=== PATIENT | male | born 1965 | race Caucasian/White ===

== ENCOUNTER 2020-06-03 01:49 | Inpatient (IN) | payer MEDICAID, SELFPAY ==
[2020-06-03] VITALS (11 sets, daily range): BP systolic 94–160; BP diastolic 55–97; PULSE 63–85; RESP 16–18; TEMP 36.6–37.2; O2SAT 93–100; BMI 33.9
--- NOTE | 2020-06-03 02:25 | W.ED.MALEGU ---
Documented by User: RAHEEL Farley 06/03/20 02:34 HPI - Male Genitourinary General: Chief complaint: Urogenital-Male Stated complaint: primary sent over if no urination in 12 hours Time Seen by Provider: 06/03/20 02:20 History of Present Illness: HPI Narrative: Patient presents with a history of having some problems urinating over the last 12 hours said he feels like he might need to go but he can go but then again he says he is severely dehydrated because he was seen in clinic in [place] [facility] said they did blood work on him and a KUB and said he was severely just dehydrated and sent him home. Said his sodium potassium was low. Patient has been sick for the last week with nausea and happens had some vomiting he denies any fever or diarrhea. Thinks maybe it just something he ate. Has a history of Parkinson's. Also sounds like he might have longstanding history of BPH that is gone undiagnosed based on his symptoms MD Complaint: other (Has not urinated in 12 hours) Onset (ago): hour(s) Duration: constant and progressively worsening Associated symptoms: Reports nausea and vomiting Review of Systems Narrative: Thinks he might be dehydrated has dizziness but that is chronic with his Parkinson's he states then noticed that he is a more dizzy when he stands up than before Const: Denies: fever(s), chills or body aches Eyes: Denies: change in vision or blurry vision ENMT: Denies: throat pain or nasal congestion Card: Denies: chest pain or dyspnea on exertion Resp: Reports: productive cough; Denies: dyspnea or non-productive cough GI: Reports: nausea and vomiting; Denies: abdominal pain : Reports: difficulty urinating Musc: Denies: extremity pain Skin/Breast: Denies: rash Neuro: Denies: headache(s) Psych: Denies: anxiety or depression Sarmad/Lymph: Denies: easy bruising PFSH ED PFSH: Medical History (Updated 06/03/20 @ 05:04 by Yazmin Bolivar) Heart failure with reduced ejection fraction Parkinsons disease Surgical History (Updated 06/03/20 @ 04:31 by Lynn Ball MD) AICD (automatic cardioverter/defibrillator) present Family History (Updated 06/03/20 @ 04:33 by Lynn Ball MD) Denies family history of Cancer Physical Exam Const: COMMON NORMALS: no acute distress, average body habitus and patient oriented x3 HENMT: COMMON NORMALS: normocephalic HEAD & SCALP: normal to inspection and normocephalic FACE & SINUS: normal facial exam Eye: COMMON NORMALS: conjunctivae normal GENERAL EYE: appearance normal, both eyes and all related structures CONJUNCTIVA: Yes conjunctivae normal Neck/C-Spine: COMMON NORMALS: no JVD Chest: COMMONS NORMALS: normal inspection of the chest Resp: COMMON NORMALS: normal respiratory effort and clear to auscultation bilaterally AUSCULTATION: clear to auscultation bilaterally Cardio: COMMON NORMALS: no JVD, regular rate and regular rhythm RATE: regular rate RHYTHM: regular rhythm GI: COMMON NORMALS: Normal to inspection, nondistended, normoactive bowel sounds present Extremity: COMMON NORMALS: normal to inspection and full ROM Neuro: COMMON NORMALS: patient oriented x3 Course Vital Signs: Vital signs: Vital Signs Temperature 98.3 F 06/03/20 02:05 Pulse Rate 78 06/03/20 04:30 Respiratory Rate 16 06/03/20 04:30 Blood Pressure 149/93 06/03/20 04:30 Pulse Oximetry 99 06/03/20 04:30 MDM - Male Lab Data: Labs: Lab Results 06/03/20 06/03/20 06/03/20 Range/Units 02:39 02:39 02:39 WBC 8.6 (4.0-10.0) 10^3/ uL RBC 5.19 (4.1-5.3) 10^6/u L Hgb 14.9 (11.7-16.6) g/dL Hct 42.5 (42.0-52.0) % MCV 81.9 (80-94) fL MCH 28.7 (28.0-34.0) pg MCHC 35.1 (30.0-36.0) g/dL RDW 13.4 (12.1-15.1) % Plt Count 243 (130-400) 10^3/c mm MPV 11.0 H (7.4-10.4) fL Neut % (Auto) 65.8 % Lymph % (Auto) 20.0 % [place] % (Auto) 12.9 % Eos % (Auto) 0.2 % Baso % (Auto) 0.4 % Neut # (Auto) 5.64 (1.8-7.7) 10^3/u L Lymph # (Auto) 1.7 (0.8-4.8) 10^3/u L [place] # (Auto) 1.1 H (0.2-0.9) 10^3/u L Eos # (Auto) 0.0 (0.0-0.8) 10^3/u L Baso # (Auto) 0.0 (0.0-0.1) 10^3/u L Nucleated RBC % (a uto) 0 % Nucleated RBCs # 0.0 /100WBC Sodium 123 L (136-145) mmol/L Potassium 3.3 L (3.5-5.1) mmol/L Chloride 84 L (98-107) mmol/L Carbon Dioxide 26 (22-29) mmol/L Anion Gap 17.3 (5-19) BUN 15 (6-20) mg/dL Creatinine 1.2 (0.7-1.2) mg/dL GFR Calculation 62.4 L (90-130) mL/min Glucose 139 H (65-115) mg/dL Calculated Osmolal ity 259 L (285-295) mOsm/k g Calcium 9.3 (8.5-10.5) mg/dL Magnesium 1.8 (1.7-2.3) mg/dL Total Bilirubin 0.8 (0.15-1.2) mg/dL AST 9 (0-40) U/L ALT 8 (0-41) U/L Alkaline Phosphata se 101 (40-130) IU/L Total Protein 7.6 (6.6-8.7) g/dL Albumin 4.1 (3.5-5.2) g/dL Globulin 3.4 (1.3-4.6) g/dL Lipase 43 (13-60) U/L Urine Color (Yellow) Urine Appearance (CLEAR) Urine pH (5-7) Ur Specific Gravit y (1.005-1.030) Urine Protein (Negative) Urine Glucose (UA) (Normal) Urine Ketones (Negative) Urine Blood (Negative) Urine Nitrate (Negative) Urine Bilirubin (Negative) Urine Urobilinogen (Negative) mg/dL Ur Leukocyte Joy ase (Negative) Urine RBC (0-2) /hpf Urine WBC (0-5) /hpf Ur Squamous Epith Cells (0-5) /hpf Amorphous Sediment /hpf Urine Bacteria (NONE) /hpf Hyaline Casts /lpf Urine Mucus /hpf 06/03/20 Range/Units 03:15 WBC (4.0-10.0) 10^3/ uL RBC (4.1-5.3) 10^6/u L Hgb (11.7-16.6) g/dL Hct (42.0-52.0) % MCV (80-94) fL MCH (28.0-34.0) pg MCHC (30.0-36.0) g/dL RDW (12.1-15.1) % Plt Count (130-400) 10^3/c mm MPV (7.4-10.4) fL Neut % (Auto) % Lymph % (Auto) % [place] % (Auto) % Eos % (Auto) % Baso % (Auto) % Neut # (Auto) (1.8-7.7) 10^3/u L Lymph # (Auto) (0.8-4.8) 10^3/u L [place] # (Auto) (0.2-0.9) 10^3/u L Eos # (Auto) (0.0-0.8) 10^3/u L Baso # (Auto) (0.0-0.1) 10^3/u L Nucleated RBC % (a uto) % Nucleated RBCs # /100WBC Sodium (136-145) mmol/L Potassium (3.5-5.1) mmol/L Chloride (98-107) mmol/L Carbon Dioxide (22-29) mmol/L Anion Gap (5-19) BUN (6-20) mg/dL Creatinine (0.7-1.2) mg/dL GFR Calculation (90-130) mL/min Glucose (65-115) mg/dL Calculated Osmolal ity (285-295) mOsm/k g Calcium (8.5-10.5) mg/dL Magnesium (1.7-2.3) mg/dL Total Bilirubin (0.15-1.2) mg/dL AST (0-40) U/L ALT (0-41) U/L Alkaline Phosphata se (40-130) IU/L Total Protein (6.6-8.7) g/dL Albumin (3.5-5.2) g/dL Globulin (1.3-4.6) g/dL Lipase (13-60) U/L Urine Color Yellow (Yellow) Urine Appearance Sl cloudy A (CLEAR) Urine pH 6 (5-7) Ur Specific Gravit y 1.015 (1.005-1.030) Urine Protein Trace (Negative) Urine Glucose (UA) Norm (Normal) Urine Ketones 1+ H (Negative) Urine Blood 3+ H (Negative) Urine Nitrate Negative (Negative) Urine Bilirubin 1+ H (Negative) Urine Urobilinogen 4+ H (Negative) mg/dL Ur Leukocyte Joy ase Negative (Negative) Urine RBC 25-40 H (0-2) /hpf Urine WBC 10-15 H (0-5) /hpf Ur Squamous Epith Cells 0-4 H (0-5) /hpf Amorphous Sediment 1+ /hpf Urine Bacteria 1+ H (NONE) /hpf Hyaline Casts 0-4 H /lpf Urine Mucus 4+ /hpf Discharge Plan Discharge Patient Disposition: Placed in Observation Clinical Impression: Dehydration, Hyponatremia, Hypokalemia Condition: Stable Sign Out Sign Out Data: Patient Sign Out occurred on 06/03/20 at 03:14. Patient's care was discussed, and care was transferred from to Yazmin Bolivar. Coding Level of Care Code ED Concrete Paving Machine Operator for g Fwd Exam Comprehensive Documented by User: Yazmin Bolivar 06/03/20 05:04 HPI - Male Genitourinary General: Chief complaint: Urogenital-Male Stated complaint: primary sent over if no urination in 12 hours Time Seen by Provider: 06/03/20 02:20 [facility] ED PFSH: Medical History (Updated 06/03/20 @ 05:04 by Yazmin Bolivar) Heart failure with reduced ejection fraction Parkinsons disease Surgical History (Updated 06/03/20 @ 04:31 by Lynn Ball MD) AICD (automatic cardioverter/defibrillator) present Family History (Updated 06/03/20 @ 04:33 by Lynn Ball MD) Denies family history of Cancer Course Vital Signs: Vital signs: Vital Signs Temperature 98.3 F 06/03/20 02:05 Pulse Rate 78 06/03/20 04:30 Respiratory Rate 16 06/03/20 04:30 Blood Pressure 149/93 06/03/20 04:30 Pulse Oximetry 99 06/03/20 04:30 MDM - Male MDM Narrative: Medical decision making narrative: Patient is hyponatremic, hypokalemic and orthostatic. Supposedly has a cardiomyopathy with a 20% ejection fraction so I believe he should be rehydrated slowly and gently. I do not want to precipitate heart failure or volume overload. The case was endorsed to Dr. Ball and he agrees to admit for further evaluation and care. Lab Data: Labs: Lab Results 06/03/20 06/03/20 06/03/20 Range/Units 02:39 02:39 02:39 WBC 8.6 (4.0-10.0) 10^3/ uL RBC 5.19 (4.1-5.3) 10^6/u L Hgb 14.9 (11.7-16.6) g/dL Hct 42.5 (42.0-52.0) % MCV 81.9 (80-94) fL MCH 28.7 (28.0-34.0) pg MCHC 35.1 (30.0-36.0) g/dL RDW 13.4 (12.1-15.1) % Plt Count 243 (130-400) 10^3/c mm MPV 11.0 H (7.4-10.4) fL Neut % (Auto) 65.8 % Lymph % (Auto) 20.0 % Berrien % (Auto) 12.9 % Eos % (Auto) 0.2 % Baso % (Auto) 0.4 % Neut # (Auto) 5.64 (1.8-7.7) 10^3/u L Lymph # (Auto) 1.7 (0.8-4.8) 10^3/u L [place] # (Auto) 1.1 H (0.2-0.9) 10^3/u L Eos # (Auto) 0.0 (0.0-0.8) 10^3/u L Baso # (Auto) 0.0 (0.0-0.1) 10^3/u L Nucleated RBC % (a uto) 0 % Nucleated RBCs # 0.0 /100WBC Sodium 123 L (136-145) mmol/L Potassium 3.3 L (3.5-5.1) mmol/L Chloride 84 L (98-107) mmol/L Carbon Dioxide 26 (22-29) mmol/L Anion Gap 17.3 (5-19) BUN 15 (6-20) mg/dL Creatinine 1.2 (0.7-1.2) mg/dL GFR Calculation 62.4 L (90-130) mL/min Glucose 139 H (65-115) mg/dL Calculated Osmolal ity 259 L (285-295) mOsm/k g Calcium 9.3 (8.5-10.5) mg/dL Magnesium 1.8 (1.7-2.3) mg/dL Total Bilirubin 0.8 (0.15-1.2) mg/dL AST 9 (0-40) U/L ALT 8 (0-41) U/L Alkaline Phosphata se 101 (40-130) IU/L Total Protein 7.6 (6.6-8.7) g/dL Albumin 4.1 (3.5-5.2) g/dL Globulin 3.4 (1.3-4.6) g/dL Lipase 43 (13-60) U/L Urine Color (Yellow) Urine Appearance (CLEAR) Urine pH (5-7) Ur Specific Gravit y (1.005-1.030) Urine Protein (Negative) Urine Glucose (UA) (Normal) Urine Ketones (Negative) Urine Blood (Negative) Urine Nitrate (Negative) Urine Bilirubin (Negative) Urine Urobilinogen (Negative) mg/dL Ur Leukocyte Joy ase (Negative) Urine RBC (0-2) /hpf Urine WBC (0-5) /hpf Ur Squamous Epith Cells (0-5) /hpf Amorphous Sediment /hpf Urine Bacteria (NONE) /hpf Hyaline Casts /lpf Urine Mucus /hpf //20 Range/Units 03:15 WBC (4.0-10.0) 10^3/ uL RBC (4.1-5.3) 10^6/u L Hgb (11.7-16.6) g/dL Hct (42.0-52.0) % MCV (80-94) fL MCH (28.0-34.0) pg MCHC (30.0-36.0) g/dL RDW (12.1-15.1) % Plt Count (130-400) 10^3/c mm MPV (7.4-10.4) fL Neut % (Auto) % Lymph % (Auto) % [place] % (Auto) % Eos % (Auto) % Baso % (Auto) % Neut # (Auto) (1.8-7.7) 10^3/u L Lymph # (Auto) (0.8-4.8) 10^3/u L [place] # (Auto) (0.2-0.9) 10^3/u L Eos # (Auto) (0.0-0.8) 10^3/u L Baso # (Auto) (0.0-0.1) 10^3/u L Nucleated RBC % (a uto) % Nucleated RBCs # /100WBC Sodium (136-145) mmol/L Potassium (3.5-5.1) mmol/L Chloride (98-107) mmol/L Carbon Dioxide (22-29) mmol/L Anion Gap (5-19) BUN (6-20) mg/dL Creatinine (0.7-1.2) mg/dL GFR Calculation (90-130) mL/min Glucose (65-115) mg/dL Calculated Osmolal ity (285-295) mOsm/k g Calcium (8.5-10.5) mg/dL Magnesium (1.7-2.3) mg/dL Total Bilirubin (0.15-1.2) mg/dL AST (0-40) U/L ALT (0-41) U/L Alkaline Phosphata se (40-130) IU/L Total Protein (6.6-8.7) g/dL Albumin (3.5-5.2) g/dL Globulin (1.3-4.6) g/dL Lipase (13-60) U/L Urine Color Yellow (Yellow) Urine Appearance Sl cloudy A (CLEAR) Urine pH 6 (5-7) Ur Specific Gravit y 1.015 (1.005-1.030) Urine Protein Trace (Negative) Urine Glucose (UA) Norm (Normal) Urine Ketones 1+ H (Negative) Urine Blood 3+ H (Negative) Urine Nitrate Negative (Negative) Urine Bilirubin 1+ H (Negative) Urine Urobilinogen 4+ H (Negative) mg/dL Ur Leukocyte Joy ase Negative (Negative) Urine RBC 25-40 H (0-2) /hpf Urine WBC 10-15 H (0-5) /hpf Ur Squamous Epith Cells 0-4 H (0-5) /hpf Amorphous Sediment 1+ /hpf Urine Bacteria 1+ H (NONE) /hpf Hyaline Casts 0-4 H /lpf Urine Mucus 4+ /hpf Discharge Plan Discharge Patient Disposition: Placed in Observation Clinical Impression: Dehydration, Hyponatremia, Hypokalemia Condition: Stable Sign Out Sign Out Data: Patient Sign Out occurred on 06/03/20 at 03:14. Patient's care was discussed, and care was transferred from to Yazmin Bolivar. Coding Level of Care Code ED Concrete Paving Machine Operator for [place] Fwd Exam Comprehensive
--- NOTE | 2020-06-03 02:27 | XRR_ITS ---
PROCEDURE INFORMATION: Exam: XR Chest, 1 View Exam date and time: 06/03/2020 2:47 AM Age: 55 years old Clinical indication: Cough; Prior surgery; Surgery type: Pacer TECHNIQUE: Imaging protocol: XR of the chest Views: 1 view. COMPARISON: No relevant prior studies available. FINDINGS: Lungs: Unremarkable. No consolidation. Pleural space: Unremarkable. No pleural effusion. No pneumothorax. Heart/Mediastinum: Unremarkable. No cardiomegaly. A left subclavian pacemaker is in place. Bones/joints: Unremarkable. XR/XR chest 1V portable [id number] IMPRESSION: No acute findings.
[2020-06-03 02:49] LABS: Basophils % 0.4 %; Eosinophils % 0.2 %; Hematocrit 42.5 % (42.0-52.0); Hemoglobin 14.9 g/dL (11.7-16.6); Lymphocytes # 1.7 10^3/uL (0.8-4.8); Mean Corpuscular HGB Conc 35.1 g/dL (30.0-36.0); Mean Corpuscular Hemoglobin 28.7 pg (28.0-34.0); Mean Corpuscular Volume 81.9 fL (80-94); Monocytes # 1.1 10^3/uL (0.2-0.9); Monocytes % 12.9 %; Neutrophils # 5.64 10^3/uL (1.8-7.7); Neutrophils % 65.8 %; Nucleated Red Blood Cells % 0 %; Platelet Count 243 10^3/cmm (130-400); Red Blood Count 5.19 10^6/uL (4.1-5.3); Red Cell Distribution Width 13.4 % (12.1-15.1); White Blood Count 8.6 10^3/uL (4.0-10.0)
[2020-06-03] MEDS: sodium chloride 0.9% 1,000 ML 999 ML IV ×2 (03:05→04:43)
[2020-06-03 03:08] LABS: Alanine Aminotransferase 8 U/L (0-41); Aspartate Amino Transferase 9 U/L (0-40); Blood Urea Nitrogen 15 mg/dL (6-20); Calcium 9.3 mg/dL (8.5-10.5); Carbon Dioxide 26 mmol/L (22-29); Glomerular Filtration Rate 62.4 mL/min (90-130); Glucose 139 mg/dL (65-115); Magnesium 1.8 mg/dL (1.7-2.3); Total Bilirubin 0.8 mg/dL (0.15-1.2); Total Protein 7.6 g/dL (6.6-8.7)
[2020-06-03 03:26] LABS: Albumin Level 4.1 g/dL (3.5-5.2); Alkaline Phosphatase 101 IU/L (40-130); Anion Gap 17.3 (5-19); Chloride 84 mmol/L (98-107); Globulin 3.4 g/dL (1.3-4.6); Osmolality Calculated 259 mOsm/kg (285-295); Potassium 3.3 mmol/L (3.5-5.1); Sodium 123 mmol/L (136-145)
[2020-06-03 03:27] LABS: Lipase 43 U/L (13-60)
[2020-06-03 03:31] LABS: Bilirubin Urine 1+ (Negative); Blood Urine 3+ (Negative); Glucose Urine UA Norm (Normal); Ketones Urine 1+ (Negative); Leukocyte Esterase Urine Negative (Negative); Nitrate Urine Negative (Negative); Protein Urine Trace (Negative); Specific Gravity, Urine 1.015 (1.005-1.030); Urine Color Yellow (Yellow); Urobilinogen Urine 4+ mg/dL (Negative); pH Urine 6 (5-7)
[2020-06-03 03:33] LABS: Add Urine Culture? Yes; Amorphous Sediment Urine 1+ /hpf; Bacteria Urine 1+ /hpf; Hyaline Casts Urine 0-4 /lpf; Mucus Urine 4+ /hpf; RBC Urine 25-40 /hpf (0-2); Squamous Epithelial Cell Urine 0-4 /hpf (0-5)
--- NOTE | 2020-06-03 04:30 | PM.HP ---
Providers/Chief Complaint Chief Complaint: primary sent over if no urination in 12 hours History of Present Illness Kin Lujan is a 55 year old male who has past medical history of Parkinson's disease, heart failure reduced action fraction status post AICD/pacemaker placement, diabetes, hypertension dyslipidemia resented today for chief complaint of not making enough urine. Patient is stating that he has been having recurrent emesis for last 1 week, he has not noticed any fever or chest pain but is not able to keep anything down, he feels extremely dehydrated currently he is not on Lasix, it was discontinued due to hypotension, he went to [facility] where he was told that he has dehydration and severe electrolyte imbalance, he was discharged home yesterday with instructions to go to the hospital if he is not making enough urine. Patient is stating that he is not able to make urine at home, he is concerned and that is why he came to the hospital. He has been compliant with his medications. No orthopnea PND shortness of breath chest pain or diarrhea. He lives alone. He is a non-smoker nonalcoholic. Diagnosis in the ER revealed hyponatremia sodium 123 hypokalemia 3.3, clinically looks euvolemic no active signs of heart failure, no signs of UTI denies dysuria urinary frequency rectal pain, he was given ceftriaxone in the ER, received normal saline bolus, chest x-ray unremarkable for acute pathology, urinalysis showed hematuria pyuria however patient is not complaining of any symptoms, Review of Systems Const: Reports: body aches and fatigue; Denies: fever(s) Eyes: Denies: change in vision ENMT: Denies: throat pain Card: Denies: chest pain, swelling of feet/ankles, pre-syncope, dyspnea on exertion or orthopnea Resp: Denies: dyspnea GI: Reports: abdominal pain, nausea, vomiting and constipation : Denies: flank pain Musc: Denies: neck pain Skin/Breast: Denies: rash Neuro: Denies: headache(s) Psych: Denies: anxiety Endo: Denies: polyuria Sarmad/Lymph: Denies: easy bruising All/Imm: Denies: urticaria Medications/Allergies Allergies Allergy/AdvReac Type Severity Reaction Status Date / Time No Known Allergies Allergy Verified 06/03/20 02:13 PFSH Acute PFSH: Medical History (Updated 06/03/20 @ 05:27 by Lynn Ball MD) Abnormal colonoscopy Benign polyp removal Diabetes Dyslipidemia Heart failure with reduced ejection fraction Hypertension Parkinsons disease Surgical History (Updated 06/03/20 @ 04:31 by Lynn Ball MD) AICD (automatic cardioverter/defibrillator) present Family History (Updated 06/03/20 @ 05:28 by Lynn Ball MD) Father CAD (coronary artery disease) Denies family history of Cancer Social History (Updated 06/03/20 @ 05:28 by Lynn Ball MD) Smoking and tobacco status: never smoked Alcohol intake: never Substance/Drug Use: never Lives independently: Yes Housing: House Vitals/I&O/Wt Last Vital Signs Temp 98.3 F 06/03/20 02:05 Pulse 67 06/03/20 04:00 Resp 17 06/03/20 04:00 BP 146/92 06/03/20 04:00 Pulse Ox 100 06/03/20 04:00 06/02/20 06/02/20 06/03/20 14:59 22:59 06:59 Intake Total 1000 / 1000 Balance 1000 / 1000 Weight last 48 hrs Weight 113.398 kg Physical Exam Narrative: EXAM NARRATIVE: Pleasant middle-age male who appears more than stated age Morbidly obese male Currently not in any active distress Saturating well on room air S1, S2 no signs of heart failure or tachyarrhythmia Abdomen soft nontender bowel sounds present Bilateral breath sounds without adventitious rhonchi or crackles No neurological deficit EOMI, PERRLA Awake alert oriented x3 No lower extremity edema gangrene ulcer Appropriate mood and affect General has dark-colored blood-tinged urine Clinically looks euvolemic Data : 06/03/20 02:39 06/03/20 02:39 A&P Assessment and plan (1) Hypokalemia: Status: Acute (2) Hyponatremia: Status: Acute (3) Dehydration: Status: Acute Additional A&P Information Electrolyte imbalance secondary to dehydration due to recurrent emesis Patient is denying diarrhea, fever blood in stool No recent use of antibiotic I am not sure whether it is Parkinson's autonomic dysfunction versus viral gastritis Hydrate gently due to comorbid conditions, Continue IV fluid resuscitation Potassium repleted Check magnesium Check C. 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 [employer] Patient is denying rectal pain or dysuria no signs of UTI I will discontinue ceftriaxone at this point This most likely is traumatic Diaz insertion versus BPH Would repeat urinalysis to make sure hematuria resolves Parkinson's disease continue home regimen carbidopa levodopa 4 times a day, no acute exacerbation DNR/DNI Cardiac diet DVT prophylaxis Lovenox Attestations Medical Necessity Statement*: Anticipating discharge in less than 48 hours continued IV fluid hydration for severe electrolyte imbalance and dehydration secondary to recurrent emesis Time Spent in Patient Care: (>than 50% of time spent in counselling and/or direct pt care on unit). 45mins Coding Level of Care Code Acute Director Of Marketing [employer] Performance [employer]ds for Michelle Meng Diagnoses Hypokalemia E87.6 Hyponatremia E87.1 Dehydration E86.0
[2020-06-03] MEDS: cefTRIAXone 2,000 MG in sodium chloride 0.9% (plus) 50 ML 100 MG IV (04:43)
[2020-06-03] MEDS: sodium chlor 0.9% + KCl 20 mEq 20 MEQ/1,000 ML BAG 30 MEQ IV (06:11)
[2020-06-03] MEDS: enoxaparin 40 mg/0.4 mL Syringe SUBCUT (06:11)
[2020-06-03 07:26] LABS: Glucose Point of Care 128 mg/dL (70-110)
[2020-06-03 07:48] LABS: Magnesium 1.9 mg/dL (1.7-2.3)
[2020-06-03] MEDS: aspirin 81 mg EC Tablet PO (09:11)
[2020-06-03] MEDS: carvedilol 12.5 mg Tablet PO ×2 (09:11→17:46)
[2020-06-03] MEDS: carbidopa-levodopa 25-100mg Tablet 1 EACH PO ×4 (09:11→20:18)
[2020-06-03] MEDS: lisinopril 10 mg Tablet PO ×2 (09:12→17:46)
[2020-06-03] MEDS: ondansetron 2 mg/ML SDV 2 mL 4 MG IVP (09:18)
[2020-06-03 10:53] LABS: Glucose Point of Care 127 mg/dL (70-110)
--- NOTE | 2020-06-03 11:22 | PM.PN ---
Subjective Subjective: Interval history: Patient reports feeling slightly better. He had another episode of vomiting shortly after he ate with undigested food during my evaluation in the bucket. He denies chest pain or shortness of breath. He reports that he usually has bowel movements every 5 to 7 days. His last bowel movement was 3 days ago. He takes rivastigmine pills for the last 2 years and denies any recent medication changes except lisinopril which was recently adjusted. Reports that he is still unable to urinate Vitals/I&O/Wt Last Vital Signs Temp 98.9 F 06/03/20 07:22 Pulse 72 06/03/20 07:22 Resp 18 06/03/20 07:22 BP 143/88 06/03/20 07:22 Pulse Ox 98 06/03/20 07:22 06/02/20 06/03/20 06/03/20 22:59 06:59 14:59 Intake Total 1050 / 1050 120 / 120 Balance 1050 / 1050 120 / 120 Weight last 48 hrs Weight 113.398 kg Physical Exam Const: COMMON NORMALS: no acute distress and patient oriented x3 Resp: COMMON NORMALS: normal respiratory effort and clear to auscultation bilaterally AUSCULTATION: clear to auscultation bilaterally Cardio: COMMON NORMALS: regular rate, regular rhythm and S2 normal heart sound present RATE: regular rate RHYTHM: regular rhythm HEART SOUNDS: S2 normal heart sound present OTHER: No lower extremity edema GI: COMMON NORMALS: Normal to inspection, nondistended, normoactive bowel sounds present, Soft to palpation and non-tender PALPATION: Yes Soft to palpation Neuro: COMMON NORMALS: patient oriented x3 and no focal motor deficits Data : 06/03/20 02:39 06/03/20 02:39 A&P Assessment and plan (1) Hypokalemia: Status: Acute (2) Hyponatremia: Status: Acute (3) Dehydration: With hyponatremia. Status: Acute (4) Benign prostatic hyperplasia with urinary obstruction: Status: Acute (5) UTI (urinary tract infection): Present on admission Status: Acute Additional A&P Information Electrolyte imbalance secondary to dehydration due to recurrent emesis Patient is denying diarrhea, fever blood in stool No recent use of antibiotic I am not sure whether it is Parkinson's autonomic dysfunction versus viral gastritis Hydrate gently due to comorbid conditions, Continue IV fluid resuscitation Potassium repleted Check magnesium Check C. 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 Awaiting urine culture Patient appears dry therefore will start patient on LR at 75 mL an hour Start patient on Flomax and request bladder scan and should there be evidence of urinary retention will consider placing Diaz catheter. Protonix for GI protection. Monitor vitals and adjust blood pressure medication as needed. Attestations Medical Necessity Statement*: Patient with dehydration and UTI requires hospitalization for monitoring and treatment. Coding Level of Care Code Acute Final Finisher Forging Dies for g Fwd Diagnoses Hypokalemia E87.6 Hyponatremia E87.1 Dehydration E86.0 Benign prostatic hyperplasia with urinary obstruction N40.1; N13.8 UTI (urinary tract infection) N39.0
[2020-06-03] MEDS: tamsulosin 0.4 mg Capsule PO (11:31)
[2020-06-03] MEDS: lactated ringers 1,000 ML 75 ML IV (12:03)
[2020-06-03] MEDS: pantoprazole DR 40 mg Tablet PO (12:04)
--- NOTE | 2020-06-03 12:53 | PC.CHAP ---
Pastoral Care Encounter/Spiritual Assessment Type of Contact [] Declined clam digger visit [] Patient/Family/Request visit [] Outpatient visit [] Follow-up visit [] Physician referral [] Code/Alert [X] Routine visit [] Staff referral [] Actively dying [] Patient sleeping [] Family support [] [] Out of room [] Palliative care [] [] Receiving care in room [] Pre-surgical visit [] Trauma [] Long length of stay [] ICU visit [] Other: Relational/Emotional Strength [X] Patient feels connected with others/family/visitors/staff [] Distress [] Loneliness/isolation [] Abandonment Spirituality of Patient [] Person of Katerina [] Attends Faith of their Katerina [] Believes in Prayer [] Reads Bible or Holiness materials [] There are Spiritual issues to be addressed Jewel [employer]yer Interventions [] Prayer [X] Active listening [X] Non-anxious presence [] Spiritual/emotional support [] Crisis/trauma care [] Spiritual counseling [] Bereavement support [] Provided bereavement packet [] Provided Bible/devotional materials [] Provided toy/stuffed animal, coloring book to patient or family member [] Provided Communion [] Anointing/[place] [] Salvation [X] Completed spiritual assessment [] Other: Impact on Illness or Injury [] Angry [] Fearful [] Anxious [] Often cries [] Exhaustion [] Unable to work [] Unable to attend evangelical [] Unable to walk/stand [] Unable to read [] Unable to drive [] Unable to eat/drink [] Unable to sleep [] Unable to be with family [] Patient intubated [] Other: Summary: Pt recent admit due to severe dehydration. He is in discomfort but expresses no needs. Otherwise, in good spirits and connected to family in the area. Time spent with patient: < 5 mins
[2020-06-03 17:01] LABS: Glucose Point of Care 110 mg/dL (70-110)
[2020-06-03 17:45] LABS: Blood Urine 2+ (Negative); Glucose Urine UA Norm (Normal); Ketones Urine Negative (Negative); Protein Urine Neg (Negative); Specific Gravity, Urine 1.005 (1.005-1.030); Urine Appearance Clear (CLEAR); Urine Color Dark Yellow (Yellow); pH Urine 6.5 (5-7)
[2020-06-03 17:46] LABS: Add Urine Culture? Yes; Add Urine Microscopic? YES; Bacteria Urine 1+ /hpf; Bilirubin Urine 1+ (Negative); Leukocyte Esterase Urine 2+ (Negative); Mucus Urine TRACE /hpf; Nitrate Urine Negative (Negative); RBC Urine 0-4 /hpf (0-2); Urobilinogen Urine 4+ mg/dL (Negative)
[2020-06-03] MEDS: atorvastatin 40 mg Tablet 20 MG PO (20:18)
[2020-06-03 21:49] LABS: Glucose Point of Care 106 mg/dL (70-110)
[2020-06-04] VITALS (7 sets, daily range): BP systolic 130–163; BP diastolic 86–100; PULSE 70–102; RESP 17–20; TEMP 36.6–37.4; O2SAT 92–97
[2020-06-04] MEDS: lactated ringers 1,000 ML 75 ML IV ×2 (00:48→13:59)
[2020-06-04] MEDS: cefTRIAXone 2,000 MG in sodium chloride 0.9% (plus) 50 ML 100 MG IV (04:08)
[2020-06-04] MEDS: enoxaparin 40 mg/0.4 mL Syringe SUBCUT (04:55)
[2020-06-04 05:35] LABS: Basophils % 0.4 %; Eosinophils # 0.1 10^3/uL (0.0-0.8); Eosinophils % 1.2 %; Hematocrit 37.5 % (42.0-52.0); Hemoglobin 12.6 g/dL (11.7-16.6); Lymphocytes # 1.2 10^3/uL (0.8-4.8); Lymphocytes % 23.6 %; Mean Corpuscular HGB Conc 33.6 g/dL (30.0-36.0); Mean Corpuscular Hemoglobin 28.8 pg (28.0-34.0); Mean Corpuscular Volume 85.8 fL (80-94); Mean Platelet Volume 11.4 fL (7.4-10.4); Monocytes # 0.4 10^3/uL (0.2-0.9); Monocytes % 7.6 %; Neutrophils # 3.42 10^3/uL (1.8-7.7); Neutrophils % 66.2 %; Nucleated Red Blood Cells % 0 %; Platelet Count 134 10^3/cmm (130-400); Red Blood Count 4.37 10^6/uL (4.1-5.3); Red Cell Distribution Width 13.9 % (12.1-15.1); White Blood Count 5.2 10^3/uL (4.0-10.0)
--- NOTE | 2020-06-04 05:41 | PC.NURSE ---
SHIFT SUMMARY Has rested for intervals. No vomiting. Says has been getting nauseated every time he tries to eat and usually ends up throwing up. Is requesting to try IV Zofran this morning prior to trying to eat breakfast to see if that will help. IV infusing without difficulty at 75ml/hr rate. Urinating well per urinal.
[2020-06-04 06:05] LABS: Anion Gap 13.9 (5-19); Blood Urea Nitrogen 10 mg/dL (6-20); Calcium 8.4 mg/dL (8.5-10.5); Carbon Dioxide 29 mmol/L (22-29); Chloride 90 mmol/L (98-107); Glucose 92 mg/dL (65-115); Osmolality Calculated 269 mOsm/kg (285-295); Sodium 130 mmol/L (136-145)
[2020-06-04 06:17] LABS: Potassium 2.9 mmol/L (3.5-5.1)
[2020-06-04] MEDS: ondansetron 2 mg/ML SDV 2 mL 4 MG IVP ×3 (06:21→20:00)
[2020-06-04 06:50] LABS: Glucose Point of Care 90 mg/dL (70-110)
[2020-06-04] MEDS: pantoprazole DR 40 mg Tablet PO (07:45)
[2020-06-04] MEDS: lisinopril 10 mg Tablet PO ×2 (07:45→17:28)
[2020-06-04] MEDS: carbidopa-levodopa 25-100mg Tablet 1 EACH PO ×4 (07:45→20:00)
[2020-06-04] MEDS: potassium chloride ER 20 mEq Tablet 40 MEQ PO ×2 (07:45→12:10)
[2020-06-04] MEDS: tamsulosin 0.4 mg Capsule PO (07:46)
[2020-06-04] MEDS: carvedilol 12.5 mg Tablet PO ×2 (07:46→17:28)
[2020-06-04] MEDS: aspirin 81 mg EC Tablet PO (07:46)
--- NOTE | 2020-06-04 07:57 | PC.NURSE ---
Patient awake alert and oriented, reports feeling cold, patient has shivers, no fever noted on vitals, room temperature increased, provided additional blanket, discussed plan of care, verbalized understanding.
--- NOTE | 2020-06-04 09:02 | ECG_ITS ---
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 Measurements Intervals [place] Rate: 93 P: 49 LA: 165 QRS: 208 QRSD: 170 T: 18 QT: 411 QTc: 512 Interpretive Statements A SENSE V PACED RHYTHM No previous ECG available for comparison Electronically Signed On 06-05-2020 21:10:50 VARNISH FILTERER by Guerline Pro M.D. [id number] parrish
[2020-06-04 09:46] LABS: Troponin T (5th) Once 15 ng/L (0-15)
--- NOTE | 2020-06-04 09:48 | PC.NURSE ---
Dr. Kovacs notified patient received zofran prior to breakfast, after breakfast patient had X1 emesis, patient requesting something further for nausea, no orders received at this time.
--- NOTE | 2020-06-04 10:19 | PC.NURSE ---
Patient voided 175mL, post residual volume on bladder scan read 45mL. Notified charge nurse and physician. Orders to continue discharge as planned.
[2020-06-04 10:49] LABS: Glucose Point of Care 105 mg/dL (70-110)
--- NOTE | 2020-06-04 12:16 | PC.NURSE ---
Patient reports, I do not feel well at all. patient remains shaky and reports to this nurse it is not his baseline, heart rate is 102, BP 163/95, Dr. Kovacs notified.
--- NOTE | 2020-06-04 14:51 | PC.NURSE ---
Patient has decreased urine output, bladder scanned and 114mL noted on result, Dr. Kovacs notified.
--- NOTE | 2020-06-04 14:56 | P.PN_ITS ---
Subjective Subjective: Interval history: Patient continues to be nauseous and vomited after he ate breakfast and was unable to eat lunch. He denies any shortness of breath or chest pain. He denies any headache, lightheadedness or dizziness whenever he moves his head. Reports he has chronic minimal lightheadedness for many years related to Parkinson's disease but this is unchanged and he has no new complaints. He denies abdominal pain. He reports urinating without difficulty although his urinary output is decreased as he does not have any oral intake. This morning patient wants to go home but understands that he cannot be discharged as he continues to be symptomatic. Vitals/I&O/Wt Last Vital Signs Temp 99.3 F 06/04/20 11:57 Pulse 102 H 06/04/20 11:57 Resp 20 H 06/04/20 11:57 BP 163/95 06/04/20 11:57 Pulse Ox 92 06/04/20 11:57 06/03/20 06/04/20 06/04/20 22:59 06:59 14:59 Intake Total 1206.25 / 1526.25 1075 / 1075 Output Total 1290 / 1290 1000 / 2290 175 / 175 Balance -1290 / -970 206.25 / -763.75 900 / 900 Weight last 48 hrs Weight 113.398 kg Physical Exam Const: COMMON NORMALS: no acute distress and patient oriented x3 Resp: COMMON NORMALS: normal respiratory effort and clear to auscultation bilaterally AUSCULTATION: clear to auscultation bilaterally Cardio: COMMON NORMALS: regular rate, regular rhythm and S2 normal heart sound present RATE: regular rate RHYTHM: regular rhythm HEART SOUNDS: S2 normal heart sound present OTHER: No lower extremity edema GI: COMMON NORMALS: Normal to inspection, nondistended, normoactive bowel sounds present, Soft to palpation and non-tender PALPATION: Yes Soft to palpation Neuro: COMMON NORMALS: patient oriented x3 and no focal motor deficits Data : 06/04/20 04:03 06/04/20 04:03 Micro: Microbiology 06/03/20 03:15 Urine Culture - Preliminary Urine,Clean Catch A&P Assessment and plan (1) Hypokalemia: Status: Acute (2) Hyponatremia: Status: Acute (3) Dehydration: With hyponatremia. Status: Acute (4) Benign prostatic hyperplasia with urinary obstruction: Does not appear to have much of urinary obstruction and reports that his urination improved significantly after initiation of Flomax. Status: Acute (5) UTI (urinary tract infection): Present on admission Status: Acute Additional A&P Information Electrolyte imbalance secondary to dehydration due to recurrent emesis Patient is denying diarrhea, fever blood in stool No recent use of antibiotic I am not sure whether it is Parkinson's autonomic dysfunction versus viral gastritis Hydrate gently due to comorbid conditions, Continue IV fluid resuscitation Potassium repleted Check magnesium Check C. 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 Continue ceftriaxone. Awaiting urine culture EKG shows paced rhythm and troponin was checked this morning which is in normal limits. Patient denies any chest pain or shortness of breath. He clinically is not in heart failure. If patient does not improve we may need to consider upper endoscopy. We will add Ativan to be used as needed for nausea control. Attestations Medical Necessity Statement*: Patient with persistent nausea and vomiting requires close inpatient monitoring and treatment. Since patient stay will cross 2 midnights I will change admission status to inpatient. Coding Level of Care Code Acute Business Continuity Planner for Chg Fwd Diagnoses Hypokalemia E87.6 Hyponatremia E87.1 Dehydration E86.0 Benign prostatic hyperplasia with urinary obstruction N40.1; N13.8 UTI (urinary tract infection) N39.0
[2020-06-04] MEDS: LORazepam 2 mg/mL INJ 1 mL 0.5 MG IVP (15:16)
[2020-06-04 16:49] LABS: Glucose Point of Care 109 mg/dL (70-110)
--- NOTE | 2020-06-04 18:16 | PC.NURSE ---
Patient denies further nausea at this time. awake and resting quietly with lights off.
[2020-06-04] MEDS: atorvastatin 40 mg Tablet 20 MG PO (20:00)
[2020-06-04 20:25] LABS: Glucose Point of Care 110 mg/dL (70-110)
[2020-06-05] VITALS (9 sets, daily range): BP systolic 136–171; BP diastolic 89–108; PULSE 63–78; RESP 18; TEMP 36.6–37; O2SAT 95–98
[2020-06-05] MEDS: carvedilol 12.5 mg Tablet PO ×2 (00:39→18:02)
[2020-06-05] MEDS: lisinopril 10 mg Tablet PO ×2 (00:39→18:02)
[2020-06-05] MEDS: lactated ringers 1,000 ML 100 ML IV (00:42)
[2020-06-05] MEDS: cefTRIAXone 2,000 MG in sodium chloride 0.9% (plus) 50 ML 100 MG IV (03:20)
[2020-06-05] MEDS: enoxaparin 40 mg/0.4 mL Syringe SUBCUT (05:13)
[2020-06-05 05:36] LABS: Basophils % 0.4 %; Eosinophils % 0.5 %; Hematocrit 37.1 % (42.0-52.0); Hemoglobin 12.3 g/dL (11.7-16.6); Lymphocytes # 0.8 10^3/uL (0.8-4.8); Lymphocytes % 15.2 %; Mean Corpuscular HGB Conc 33.2 g/dL (30.0-36.0); Mean Corpuscular Hemoglobin 28.9 pg (28.0-34.0); Mean Corpuscular Volume 87.1 fL (80-94); Mean Platelet Volume 11.3 fL (7.4-10.4); Monocytes # 0.5 10^3/uL (0.2-0.9); Monocytes % 9.4 %; Neutrophils # 4.04 10^3/uL (1.8-7.7); Neutrophils % 73.4 %; Nucleated Red Blood Cells % 0 %; Platelet Count 124 10^3/cmm (130-400); Red Blood Count 4.26 10^6/uL (4.1-5.3); Red Cell Distribution Width 14.1 % (12.1-15.1); White Blood Count 5.5 10^3/uL (4.0-10.0)
[2020-06-05 05:51] LABS: Alanine Aminotransferase 11 U/L (0-41); Alkaline Phosphatase 76 IU/L (40-130); Anion Gap 16.3 (5-19); Aspartate Amino Transferase 47 U/L (0-40); Blood Urea Nitrogen 11 mg/dL (6-20); Calcium 8.3 mg/dL (8.5-10.5); Carbon Dioxide 25 mmol/L (22-29); Chloride 96 mmol/L (98-107); Globulin 2.8 g/dL (1.3-4.6); Glucose 106 mg/dL (65-115); Magnesium 1.9 mg/dL (1.7-2.3); Osmolality Calculated 278 mOsm/kg (285-295); Potassium 3.3 mmol/L (3.5-5.1); Sodium 134 mmol/L (136-145); Total Bilirubin 0.6 mg/dL (0.15-1.2); Total Protein 5.8 g/dL (6.6-8.7)
[2020-06-05 06:41] LABS: Glucose Point of Care 89 mg/dL (70-110)
[2020-06-05] MEDS: ondansetron 2 mg/ML SDV 2 mL 4 MG IVP (07:42)
[2020-06-05] MEDS: tamsulosin 0.4 mg Capsule PO (08:12)
[2020-06-05] MEDS: aspirin 81 mg EC Tablet PO (08:12)
[2020-06-05] MEDS: pantoprazole DR 40 mg Tablet PO (08:12)
[2020-06-05] MEDS: carbidopa-levodopa 25-100mg Tablet 1 EACH PO ×4 (08:12→20:03)
--- NOTE | 2020-06-05 09:42 | PC.CHAP ---
Pastoral Care Encounter/Spiritual Assessment Type of Contact [] Declined tennis director visit [] Patient/Family/Request visit [] Outpatient visit [] Follow-up visit [] Physician referral [] Code/Alert [x] Routine visit [] Staff referral [] Actively dying [] Patient sleeping [] Family support [] [] Out of room [] Palliative care [] [] Receiving care in room [] Pre-surgical visit [] Trauma [] Long length of stay [] ICU visit [] Other: Relational/Emotional Strength [x] Patient feels connected with others/family/visitors/staff [] Distress [] Loneliness/isolation [] Abandonment Spirituality of Patient [] Person of Katerina [] Attends Jehovah'S Witness of their Katerina [] Believes in Prayer [] Reads Bible or Adventist materials [] There are Spiritual issues to be addressed Independent Crop Consultant Interventions [x] Prayer [x] Active listening [] Non-anxious presence [] Spiritual/emotional support [] Crisis/trauma care [] Spiritual counseling [] Bereavement support [] Provided bereavement packet [] Provided Bible/devotional materials [] Provided toy/stuffed animal, coloring book to patient or family member [] Provided Communion [] Anointing/[place] [] Salvation [x] Completed spiritual assessment [] Other: Impact on Illness or Injury [] Angry [] Fearful [] Anxious [] Often cries [] Exhaustion [] Unable to work [] Unable to attend cheondoism [] Unable to walk/stand [] Unable to read [] Unable to drive [] Unable to eat/drink [] Unable to sleep [] Unable to be with family [] Patient intubated [] Other: Summary feeling much better today Time spent with patient 10 min
[2020-06-05 11:25] LABS: Glucose Point of Care 96 mg/dL (70-110)
--- NOTE | 2020-06-05 13:08 | PC.NURSE ---
Patient tolerated clear liquid tray for lunch and no emesis afterwards thus far. Reports feeling better but I am going to take the liquids slowly.
--- NOTE | 2020-06-05 16:07 | CTR_ITS ---
PROCEDURE INFORMATION: Exam: CT Abdomen And Pelvis With Contrast Exam date and time: 06/05/2020 4:34 PM Age: 55 years old Clinical indication: Nausea and vomiting; Prior surgery; Surgery type: Appy; Additional info: Recurrant nausea, vomiting and decrease u/o TECHNIQUE: Imaging protocol: Computed tomography of the abdomen and pelvis with intravenous contrast. Radiation optimization: All CT scans at this facility use at least one of these dose optimization techniques: automated exposure control; mA and/or kV adjustment per patient size (includes targeted exams where dose is matched to clinical indication); or iterative reconstruction. Contrast material: OMNI 300; Contrast volume: 95 ml; Contrast route: INTRAVENOUS (IV); COMPARISON: No relevant prior studies available. RADIATION DOSE METRICS: Total DLP (mGy-cm): 1980.5 FINDINGS: Tubes, catheters and devices: A pacemaker device is present, and its leads are in appropriate position. Lungs: There is calcified granuloma in the left lower lobe. Liver: There is a 1.8 cm sized simple cyst in the right lobe of the liver. There is a diffuse decrease in hepatic parenchymal density, consistent with moderate fatty infiltration. Gallbladder and bile ducts: The gallbladder is normal. Pancreas: The pancreas is normal. Spleen: The spleen is normal. Adrenal glands: There is a 2.6 cm sized indeterminate right adrenal nodule. Comparison with prior examinations is recommended. If no prior exams are available recommend adrenal CT. Kidneys and ureters: There is a simple cyst in the left kidney. There is a left renal collecting system calcification. The right kidney is normal. There is no evidence of hydronephrosis. There is no stone along the course of either ureter. Stomach and bowel: There is no evidence of colitis/diverticulitis. There is no evidence of intestinal obstruction. Appendix: Not identifiedThe prostate gland demonstrates nonspecific parenchymal calcifications. Intraperitoneal space: There is no evidence of free intraperitoneal fluid. Vasculature: Unremarkable. No abdominal aortic aneurysm. Lymph nodes: There are calcified left hilar lymph nodes in keeping with old granulomatous disease. Urinary bladder: Unremarkable as visualized. Reproductive: Unremarkable as visualized. Bones/joints: Unremarkable. No acute fracture. Soft tissues: Unremarkable. CT/CT abdomen pelvis w con* [id number] IMPRESSION: 1. Fatty liver 2. Old granulomatous disease 3. Indeterminate right adrenal mass, further evaluation with adrenal CT scan, or comparison with prior studies is suggested. 4. Left nephrolithiasis 5. No acute finding. COMMENTS: Consistent with the [employer]'s Incidental Findings Committee white paper (J Am Jonah Radiol 2018): Any incidental renal lesion less than 1 cm or classified as too small to characterize, or any incidental cystic renal lesion characterized as simple-appearing, is likely benign. No follow-up imaging is recommended for these lesions per consensus recommendations based on imaging criteria. Radiation Dose CTDIVOL = (mGy): DLP = 1980.5 (mGy-cm)
--- NOTE | 2020-06-05 16:22 | PM.PN ---
Subjective Subjective: Interval history: 55-year-old male with a past medical history significant for Parkinson's disease, chronic systolic heart failure status post AICD / pacemaker placement, hypertension, dyslipidemia, and diabetes mellitus who presented to the hospital with poor p.o. intake. This was associated with decreased urine output. Patient denies any difficulty urination. Denies any prior history of prostate issues. Patient did report decreased appetite and recent nausea and vomiting for past week. Laboratory workup on arrival showed a WBC of 8.6, hemoglobin of 14.9, hematocrit 42.5 and a platelet count of 243. sodium 123, potassium 3.3, chloride 84, bicarb 26, BUN 15 and creatinine of 1.2. Urinalysis showed 2+ leukocyte esterase and 1+ bacteria. Imaging studies on admission included a chest x-ray which did not show any evidence of acute cardiopulmonary abnormality. Upon admission he was started on IVF resuscitation and IV Rocephin 1g q24hr. Diaz catheter was placed. He was noted to have hematuria. Urine culture had not shown any growth. Throughout hospitalization his urine output slowly improved. Did not have any evidence of urinary obstruction. Was started on Flomax. Continued on LR IV at 50 cc/hr. Remained on CLD due to progressive nausea/vomiting. Subjective 06/05/20 Continued to have recurrent nausea/vomiting. Denied any chest pain, dyspnea or abdominal pain. No reported diarrhea or constipation. Medications: Reviewed: Yes Vitals/I&O/Wt Last Vital Signs Temp 98.3 F 06/05/20 11:41 Pulse 74 06/05/20 11:41 Resp 18 06/05/20 11:41 BP 136/92 06/05/20 11:41 Pulse Ox 97 06/05/20 11:41 06/05/20 06/05/20 06/05/20 06:59 14:59 22:59 Intake Total 1030 / 2555 1091.667 / 1091.667 Output Total 420 / 595 390 / 390 Balance 610 / 1960 701.667 / 701.667 Data : 06/05/20 04:16 06/05/20 04:16 Micro: Microbiology 06/03/20 03:15 Urine Culture - Final Urine,Clean Catch A&P Assessment and plan (1) Dehydration: Status: Acute (2) Hyponatremia: Status: Acute (3) Hypokalemia: Status: Acute Intractable nausea/vomiting - Suspected viral gastritis vs possible diabetic or autonomic dysfunction leading to gasteroparesis - Will add Reglan TID meals - Obtain CT abd/pelvis w/contrast - D/C lactated ringer - Start NS at 50 cc/hr - Will arrange for outpatient gastric emptying study once discharged. - Continue CLD - Advance if tolerating and no further emesis Hypokalemia - K 3.3 today - Replace and recheck in am Hypovolemic Hyponatremia - NA 123 on arrival - On IVF - Improved to 134 - Will check FENA - Repeat BMP in AM Urinary tract infection ruled out - D/C Rocephin - Culture results negative - No dysuria, frequency or urgency - Afebile with no leukocytosis Diabetes mellitus - Sliding scale insulin - QACHS checks - A1c in AM Hypertension - Coreg 12.5 mg PO BID - Lisinopril 20 mg PO daily - Add hydralazine PRN Dyslipidemia - Lipitor 20 mg PO Daily Chronic systolic HF s/p hx of AICD placement - No prior echo to assess type - Not currently in exacerbation - Will order ECHO to assess EF - Daily weight - Strict input and output Parkinson disease - Sinemet 25/100mg PO QID Suspected BPH - Flomax 0.4 mg PO daily GI ppx - Protonix 40mg PO daily DVT ppx - Lovenox 40 mg SQ daily Attestations Medical Necessity Statement*: Will require further hospitalization for management of intractable nausea vomiting. Time Spent in Patient Care: Greater than 35 minutes (>than 50% of time spent in counselling and/or direct pt care on unit). Coding Level of Care Code Acute Precision Structural Metal Fitter for g Fwd Diagnoses Dehydration E86.0 Hyponatremia E87.1 Hypokalemia E87.6
--- NOTE | 2020-06-05 16:26 | PC.NURSE ---
Dr. Ro notified of patients elevated BP result, 171/108, verbalized will place new orders PRN for hypertension.
[2020-06-05] MEDS: potassium chloride oral liq 20 mEq/15 mL UDC 40 MEQ PO (16:39)
[2020-06-05] MEDS: hyDRALAzine 25 mg Tablet PO (16:39)
[2020-06-05] MEDS: sodium chloride 0.9% 1,000 ML 50 ML IV (16:39)
[2020-06-05] MEDS: iohexol 300 mg/mL 100 mL Btl IV (16:54)
[2020-06-05 17:19] LABS: Glucose Point of Care 86 mg/dL (70-110)
[2020-06-05] MEDS: atorvastatin 40 mg Tablet 20 MG PO (20:03)
[2020-06-05 20:20] LABS: Glucose Point of Care 98 mg/dL (70-110)
[2020-06-06] VITALS: BP 152/100; PULSE 74; RESP 18; TEMP 36.9; O2SAT 97
[2020-06-06 04:00] VITALS: BP 166/110; PULSE 66; RESP 16; TEMP 37; O2SAT 97
[2020-06-06] MEDS: enoxaparin 40 mg/0.4 mL Syringe SUBCUT (04:38)
[2020-06-06] MEDS: carvedilol 12.5 mg Tablet PO (04:53)
[2020-06-06] MEDS: lisinopril 10 mg Tablet PO (04:54)
[2020-06-06 05:43] LABS: Basophils % 0.3 %; Eosinophils # 0.1 10^3/uL (0.0-0.8); Eosinophils % 1.7 %; Hematocrit 36.6 % (42.0-52.0); Hemoglobin 12.3 g/dL (11.7-16.6); Lymphocytes % 15.6 %; Mean Corpuscular HGB Conc 33.6 g/dL (30.0-36.0); Mean Corpuscular Hemoglobin 28.6 pg (28.0-34.0); Mean Corpuscular Volume 85.1 fL (80-94); Mean Platelet Volume 11.4 fL (7.4-10.4); Monocytes # 0.6 10^3/uL (0.2-0.9); Monocytes % 10.1 %; Neutrophils # 4.54 10^3/uL (1.8-7.7); Neutrophils % 71.8 %; Nucleated Red Blood Cells % 0 %; Platelet Count 143 10^3/cmm (130-400); Red Cell Distribution Width 13.9 % (12.1-15.1); White Blood Count 6.3 10^3/uL (4.0-10.0)
[2020-06-06 06:03] LABS: Alanine Aminotransferase 13 U/L (0-41); Albumin Level 3.1 g/dL (3.5-5.2); Alkaline Phosphatase 82 IU/L (40-130); Anion Gap 11.4 (5-19); Aspartate Amino Transferase 33 U/L (0-40); Blood Urea Nitrogen 8 mg/dL (6-20); Calcium 8.3 mg/dL (8.5-10.5); Carbon Dioxide 27 mmol/L (22-29); Chloride 95 mmol/L (98-107); Globulin 2.7 g/dL (1.3-4.6); Glucose 105 mg/dL (65-115); Magnesium 1.9 mg/dL (1.7-2.3); Osmolality Calculated 269 mOsm/kg (285-295); Potassium 3.4 mmol/L (3.5-5.1); Sodium 130 mmol/L (136-145); Total Bilirubin 0.4 mg/dL (0.15-1.2); Total Protein 5.8 g/dL (6.6-8.7)
[2020-06-06 06:45] LABS: Glucose Point of Care 105 mg/dL (70-110)
--- NOTE | 2020-06-06 07:37 | PC.NURSE ---
Dr. Ro notified of elevated blood pressure, no nausea or vomiting since yesterday morning and patient requesting diet advancement, new orders received for regular diet and hold PRN medication for HTN and assess BP after morning medication. 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
[2020-06-06 07:40] VITALS: BP 168/111; PULSE 66; RESP 18; TEMP 36.4; O2SAT 96
--- NOTE | 2020-06-06 07:40 | PC.NURSE ---
I reported the high bp to the nurse. 168/111
[2020-06-06] MEDS: pantoprazole DR 40 mg Tablet PO (08:11)
[2020-06-06] MEDS: tamsulosin 0.4 mg Capsule PO (08:11)
[2020-06-06] MEDS: aspirin 81 mg EC Tablet PO (08:11)
[2020-06-06] MEDS: potassium chloride ER 20 mEq Tablet PO (08:12)
[2020-06-06] MEDS: carbidopa-levodopa 25-100mg Tablet 1 EACH PO (08:12)
--- NOTE | 2020-06-06 09:10 | PC.NURSE ---
Patient tolerated regular tray for breakfast without nausea or vomiting.
[2020-06-06 10:25] VITALS: BP 148/95
--- NOTE | 2020-06-06 10:36 | PC.NURSE ---
Discharge instructions provided, verbalized understanding, denies further questions or concerns, belongings returned to patient including cell phone clothes shoes and wallet.
[2020-06-06 10:37] VITALS: BP 148/95; PULSE 66; RESP 16; TEMP 36.4; O2SAT 96
--- NOTE | 2020-06-06 12:45 | PM.DCS ---
Discharge Providers Date of Admission: 06/04/20 15:02 Date of Discharge: June 06, 2020 Attending Provider at Admission: Lynn Ball MD Attending Provider at Discharge: Steevn Ro Diagnoses at Discharge Discharge Diagnosis (1) Dehydration: Status: Resolved (2) Hyponatremia: Status: Acute (3) Hypokalemia: Status: Acute Reason for Visit Reason for Visit: primary sent over if no urination in 12 hours Hospital Course Hospital Course 55-year-old male with a past medical history significant for Parkinson's disease, chronic systolic heart failure status post AICD / pacemaker placement, hypertension, dyslipidemia, and diabetes mellitus who presented to the hospital with poor p.o. intake. This was associated with decreased urine output. Patient denies any difficulty urination. Denies any prior history of prostate issues. Patient did report decreased appetite and recent nausea and vomiting for past week. Laboratory workup on arrival showed a WBC of 8.6, hemoglobin of 14.9, hematocrit 42.5 and a platelet count of 243. sodium 123, potassium 3.3, chloride 84, bicarb 26, BUN 15 and creatinine of 1.2. Urinalysis showed 2+ leukocyte esterase and 1+ bacteria. Imaging studies on admission included a chest x-ray which did not show any evidence of acute cardiopulmonary abnormality. Upon admission he was started on IVF resuscitation and IV Rocephin 1g q24hr. Diaz catheter was placed. He was noted to have hematuria. Urine culture had not shown any growth. Throughout hospitalization his urine output slowly improved. Did not have any evidence of urinary obstruction. Was started on Flomax. Continued on LR IV at 50 cc/hr. Remained on CLD due to progressive nausea/vomiting. CT abdomen pelvis was performed which did not show any evidence of acute intra-abdominal findings to suggest etiology of presenting symptoms. Patient's diet was advanced. Urine output had improved. No further nausea vomiting. Diaz catheter was removed and patient passed voiding trials. Was continued on Flomax the time of discharge. Advised to follow-up with Urology on outpatient basis. Discharge in stable condition. Physical Exam Narrative: EXAM NARRATIVE: General -alert awake and oriented x3 HEENT -grossly unremarkable CVS -normal sinus rhythm Chest -nonlabored respiration Abdomen - nondistended nontender Extremities-no significant edema noted Discharge Data Data Completed and Pending: Completed Studies During Hospitalization Category Date Time Status CT abdomen pelvis w con* [id number] Rout ine Cat Scan 06/05/20 16:07 Completed XR chest 1V levi ble [id number] Stat Exams 06/03/20 02:27 Completed Vitals: Last Vital Signs Temp 97.6 F 06/06/20 10:37 Pulse 66 06/06/20 10:37 Resp 16 06/06/20 10:37 BP 148/95 06/06/20 10:37 Pulse Ox 96 06/06/20 10:37 Discharge Plan Discharge Patient Disposition: Home Condition: Stable Prescriptions: New aspirin 81 mg Tablet,Delayed Release (Dr/Ec) 81 mg PO DAILY Qty: 30 RF: 0 tamsulosin 0.4 mg Capsule 0.4 mg PO DAILY Qty: 30 RF: 0 Zofran 4 mg tablet 4 mg PO Q8H PRN (Reason: nausea and vomiting) Qty: 10 RF: 0 pantoprazole 40 mg Tablet,Delayed Release (Dr/Ec) 40 mg PO DAILY Qty: 30 RF: 0 Continued fluoxetine 40 mg capsule 40 mg PO DAILY@0800 RF: 0 lisinopril 20 mg tablet 10 mg PO BID@0800,1999 RF: 0 carbidopa-levodopa 25-100 mg tablet See Rx Instructions .ROUTE .COMPLEX RF: 0 rivastigmine tartrate 1.5 mg capsule 1.5 mg PO BID@0800,1999 RF: 0 carvedilol 12.5 mg tablet 12.5 mg PO BID@0800,1999 RF: 0 glipizide 5 mg tablet 5 mg PO DAILY@0800 RF: 0 rosuvastatin 20 mg tablet 20 mg PO DAILY@0800 RF: 0 Discontinued hydrochlorothiazide 12.5 mg capsule 12.5 mg PO DAILY@0800 RF: 0 Discharge Orders: Discharge Order (Routine); Ordered 06/06/20 Ordered By: Steven Ro Other Ambulatory Orders: Complete Blood Count w/Auto (Routine) Timeframe: 3 Days Location: Determined by Patient Ordered By: Christiano Kovacs Comprehensive Metabolic Panel (Routine) Timeframe: 3 Days Facility: [facility] - Location: Lab - Main Lab Ordered By: Christiano Kovacs Referrals: KAITY SIMMS MD [Referring] - 06/07/20 2:00 pm Discharge Diet: Usual diet Discharge Activity: Increase activity as tolerated Patient Instructions: Dehydration - Adult, Aspirin (By mouth), Ondansetron (By mouth), Tamsulosin (By mouth), Cefdinir (By mouth), Pantoprazole (By mouth), Benign Prostatic Hypertrophy (DC), Urinary Tract Infection in Men (DC) Activity Restrictions/Additional Instructions: Please call your doctor or present to emergency department if your condition worsens or you develop diarrhea, lightheadedness, fatigue, chest pain or see blood in your stool or black stool. Please present back to ER if you have any difficulty with urination or develop fever and chills or your nausea continues and you have difficulty eating and drinking. Discharge Attestations Time Spent in Discharge Care*: greater than 30 min Specific Discharge Activities: educating patient, discussing with pcp/other providers, discussing with briefcase sewer/social workers/dc planners and documenting/other paperwork Status at Discharge: Cognitive status at discharge: cognitively intact, Behavioral status at discharge: cooperative, Functional status at discharge: independent ambulation Overall status at discharge: patient is back to baseline Quality Metrics Clinical Quality Measures During this hospital stay, did patient experience: None Coding Level of Care Code Acute Circulation Clerk for Chg Fwd Diagnoses Dehydration E86.0 Hyponatremia E87.1 Hypokalemia E87.6
== END 2020-06-06 10:58 | disposition home or self-care (01) | DRG 392 ==
LOC: ER 05:04 → MEDSURG 05:06
PROVIDERS: Internal Medicine; Nurse Practitioner Family; Admitting Provider Internal Medicine; Emergency Provider Emergency Medicine; Visit Provider Hospitalist
DX: R11.2 Nausea with vomiting, unspecified (principal); I50.22 Chronic systolic (congestive) heart failure; E87.1 Hypo-osmolality and hyponatremia; E86.0 Dehydration; G20 Parkinson's disease; Z95.810 Presence of automatic (implantable) cardiac defibrillator; E11.9 Type 2 diabetes mellitus without complications; I11.0 Hypertensive heart disease with heart failure; E78.5 Hyperlipidemia, unspecified; R31.9 Hematuria, unspecified; E87.6 Hypokalemia; N40.0 Benign prostatic hyperplasia without lower urinary tract symptoms; Z66 Do not resuscitate; Z79.84 Long term (current) use of oral hypoglycemic drugs
CPT/HCPCS: 12345; 36415; 36416; 51798; 71045; 74177; 80048; 80053; 81001; 82962; 83690; 83735; 84484; 85025; 87086; 93005; 96372; 96375; 99283; G0378; J0696; J1650; J2060; J2405; J7030; Q9967

== ENCOUNTER 2020-06-25 09:57 | Inpatient (IN) | payer MEDICAID, SELFPAY ==
[2020-06-25] VITALS (14 sets, daily range): BP systolic 97–151; BP diastolic 50–99; PULSE 68–98; RESP 16–18; TEMP 36.5–36.9; O2SAT 92–98; BMI 31.4
--- NOTE | 2020-06-25 10:23 | W.ED.NAVMDI ---
HPI - Nausea/Vomiting/Diarrhea General: Chief complaint: Nausea/Vomiting/Diarrhea Stated complaint: Dehydrated/unable to eat or drink Time Seen by Provider: 06/25/20 10:09 History of Present Illness: HPI Narrative: Patient is a 55-year-old male comes to the ED with nausea/vomitting and weakness. Patient has a past medical history of HF with pacemaker, hypertension, dyslipidemia and diabetes. He was seen here and hospitalized back on June 03 for same complaint and decreased urine output. Patient says when he was discharged from the hospital he was actually not feeling much better but lied and wanted to go home. He said he still has a poor appetite and he has nausea and vomiting daily since he was discharged. He did have some diarrhea a couple days ago and it lasted for approximately 2 days and then it has since resolved. He is feeling increased generalized weakness over the past couple days and he gets tired quickly when standing up. Denies any fever, chills, chest pain, shortness of breath, abdominal pain, constipation, dysuria or hematuria. Associated nausea: Yes Associated symtoms: Reports nausea; Denies change in vision, chest pain, dysuria, fatigue, headache(s) or palpitations Review of Systems Const: Denies: fever(s), chills or fatigue Eyes: Denies: change in vision or eye discomfort ENMT: Denies: throat pain, odynophagia, nasal discharge or nasal congestion Card: Denies: chest pain, palpitations, edema, swelling of feet/ankles, dyspnea on exertion or orthopnea Resp: Denies: dyspnea, productive cough or non-productive cough GI: Reports: nausea and vomiting; Denies: abdominal pain, diarrhea, constipation or hematochezia : Denies: flank pain, difficulty urinating, dysuria or hematuria Musc: Denies: neck pain, back pain or extremity swelling Skin/Breast: Denies: rash or new lesions Neuro: Denies: headache(s), numbness in extremities or weakness in extremities PFS ED PFSH: Medical History Abnormal colonoscopy Benign polyp removal Diabetes Dyslipidemia Heart failure with reduced ejection fraction Hypertension Parkinsons disease Surgical History AICD (automatic cardioverter/defibrillator) present Family History Father CAD (coronary artery disease) Denies family history of Cancer Social History Smoking and tobacco status: never smoked Alcohol intake: never Lives independently: Yes Housing: House Physical Exam Const: COMMON NORMALS: no acute distress, patient oriented x3 and alert GENERAL APPEARANCE: cooperative and comfortable HENMT: COMMON NORMALS: normocephalic HEAD & SCALP: normocephalic MOUTH: Normal oral and palatal mucosa present and moist mucous membranes abnormal (mild) THROAT: posterior oropharynx normal and uvula midline Eye: COMMON NORMALS: Equal, round and reactive pupils present PUPIL: Yes Equal, round and reactive pupils present Neck/C-Spine: COMMON NORMALS: supple GENERAL: Yes normal visual inspection Resp: COMMON NORMALS: normal respiratory effort, No retractions, No use of accessory muscles and clear to auscultation bilaterally AUSCULTATION: clear to auscultation bilaterally Cardio: COMMON NORMALS: regular rate, regular rhythm, S1 normal heart sound present, S2 normal heart sound present, No gallops present (Cardio), No clicks present (Cardio), No murmurs present (Cardio) and Peripheral pulses 2+ throughout RATE: regular rate RHYTHM: regular rhythm HEART SOUNDS: S1 normal heart sound present and S2 normal heart sound present PERIPHERAL PULSES: Peripheral pulses 2+ throughout GI: COMMON NORMALS: Normal to inspection, nondistended, normoactive bowel sounds present, Soft to palpation, non-tender and no masses PALPATION: Yes Soft to palpation : COMMON NORMALS: Yes no CVA tenderness BLADDER/KIDNEY EXAM: Yes no CVA tenderness Back/Pelvis: COMMON NORMALS: no CVA tenderness Extremity: COMMON NORMALS: normal to inspection and no pedal edema Neuro: COMMON NORMALS: patient oriented x3 and moves all extremities SENSORIUM/ORIENTATION: Yes alert Skin: GENERAL SKIN EXAM: dry skin and turgor decreased Course Vital Signs: Vital signs: Vital Signs Temperature 98.7 F 06/27/20 08:00 Pulse Rate 67 06/27/20 08:00 Respiratory Rate 16 06/27/20 08:00 Blood Pressure 168/89 06/27/20 08:00 Pulse Oximetry 94 06/27/20 08:00 MDM - Nausea/Vomiting/Diarrhea MDM Narrative: Medical decision making narrative: Patient is a 55-year-old male comes to the ED with nausea, vomiting and weakness. PMH of heart failure with pacemaker, diabetes and hypertension. On exam patient's oral mucosa is very dry. Patient has a creatinine of 1.7 today. His previous creatinine approximately 3 weeks ago was 0.9. CT of abdomen pelvis showed no acute findings. While here in the ED patient was given a liter of IV fluids and some Zofran and Reglan and nausea vomiting was unable to be controlled. I talked to Dr. Johnson here in the ED and discussed possible admission of patient. Dr. Johnson contacted the hospitalist and had patient admitted. Lab Data: Attestation: I reviewed the patient's lab results. Labs: Lab Results 06/25/20 06/25/20 06/25/20 Range/Units 10:39 10:39 10:39 WBC 10.6 H (4.0-10.0) 10^3/ uL RBC 4.90 (4.1-5.3) 10^6/u L Hgb 13.8 (11.7-16.6) g/dL Hct 41.0 L (42.0-52.0) % MCV 83.7 (80-94) fL MCH 28.2 (28.0-34.0) pg MCHC 33.7 (30.0-36.0) g/dL RDW 15.5 H (12.1-15.1) % Plt Count 300 (130-400) 10^3/c mm MPV 11.9 H (7.4-10.4) fL Neut % (Auto) 73.5 % Lymph % (Auto) 15.2 % Mccormick % (Auto) 9.8 % Eos % (Auto) 0.2 % Baso % (Auto) 0.4 % Neut # (Auto) 7.79 H (1.8-7.7) 10^3/u L Lymph # (Auto) 1.6 (0.8-4.8) 10^3/u L Mccormick # (Auto) 1.0 H (0.2-0.9) 10^3/u L Eos # (Auto) 0.0 (0.0-0.8) 10^3/u L Baso # (Auto) 0.0 (0.0-0.1) 10^3/u L Nucleated RBC % (a uto) 0.2 % Nucleated RBCs # 0.0 /100WBC Sodium 133 L (136-145) mmol/L Potassium 3.8 (3.5-5.1) mmol/L Chloride 94 L (98-107) mmol/L Carbon Dioxide 23 (22-29) mmol/L Anion Gap 19.8 H (5-19) BUN 13 (6-20) mg/dL Creatinine 1.7 H (0.7-1.2) mg/dL GFR Calculation 41.8 L (90-130) mL/min Glucose 142 H (65-115) mg/dL Estimat Average Gl ucose Hemoglobin A1c (4.0-6.0) % Calculated Osmolal ity 279 L (285-295) mOsm/k g Calcium 9.2 (8.5-10.5) mg/dL Total Bilirubin 0.9 (0.15-1.2) mg/dL AST 11 (0-40) U/L ALT < 5 (0-41) U/L Alkaline Phosphata se 102 (40-130) IU/L Troponin T Baselin e 21 H (0-15) ng/L Troponin T 120 Min minto (0-15) ng/L Delta Troponin T (0-10) ABS# Troponin T Hi Sens 6Hr (0-15) ng/L Troponin T Hi Sens 6Hr Delta (0-12) ng/L NT-Pro-B Natriuret Pep 357 H (0-125) pg/mL Total Protein 7.1 (6.6-8.7) g/dL Albumin 3.9 (3.5-5.2) g/dL Globulin 3.2 (1.3-4.6) g/dL Lipase 40 (13-60) U/L TSH (0.27-4.20) uIU/ mL Urine Color (Yellow) Urine Appearance (CLEAR) Urine pH (5-7) Ur Specific Gravit y (1.005-1.030) Urine Protein (Negative) Urine Glucose (UA) (Normal) Urine Ketones (Negative) Urine Blood (Negative) Urine Nitrate (Negative) Urine Bilirubin (Negative) Urine Urobilinogen (Negative) mg/dL Ur Leukocyte Joy ase (Negative) Urine RBC (0-2) /hpf Urine WBC (0-5) /hpf Ur Squamous Epith Cells (0-5) /hpf Ur Transition Epit h Cell /hpf Amorphous Sediment Urine Bacteria (NONE) /hpf Hyaline Casts /lpf Urine Mucus /hpf Urine Opiates Scre en (Negative) ng/mL Ur Barbiturates Sc reen (Negative) ng/mL Ur Phencyclidine S crn (Negative) ng/mL Ur Amphetamines Sc reen (Negative) ng/mL U Benzodiazepines Scrn (Negative) ng/mL Urine Cocaine Scre en (Negative) ng/mL U Marijuana (THC) Screen (Negative) ng/mL 06/25/20 06/25/20 06/25/20 Range/Units 10:39 10:39 13:30 WBC (4.0-10.0) 10^3/ uL RBC (4.1-5.3) 10^6/u L Hgb (11.7-16.6) g/dL Hct (42.0-52.0) % MCV (80-94) fL MCH (28.0-34.0) pg MCHC (30.0-36.0) g/dL RDW (12.1-15.1) % Plt Count (130-400) 10^3/c mm MPV (7.4-10.4) fL Neut % (Auto) % Lymph % (Auto) % Mccormick % (Auto) % Eos % (Auto) % Baso % (Auto) % Neut # (Auto) (1.8-7.7) 10^3/u L Lymph # (Auto) (0.8-4.8) 10^3/u L Mccormick # (Auto) (0.2-0.9) 10^3/u L Eos # (Auto) (0.0-0.8) 10^3/u L Baso # (Auto) (0.0-0.1) 10^3/u L Nucleated RBC % (a uto) % Nucleated RBCs # /100WBC Sodium (136-145) mmol/L Potassium (3.5-5.1) mmol/L Chloride (98-107) mmol/L Carbon Dioxide (22-29) mmol/L Anion Gap (5-19) BUN (6-20) mg/dL Creatinine (0.7-1.2) mg/dL GFR Calculation (90-130) mL/min Glucose (65-115) mg/dL Estimat Average Gl ucose 128 Hemoglobin A1c 6.1 H (4.0-6.0) % Calculated Osmolal ity (285-295) mOsm/k g Calcium (8.5-10.5) mg/dL Total Bilirubin (0.15-1.2) mg/dL AST (0-40) U/L ALT (0-41) U/L Alkaline Phosphata se (40-130) IU/L Troponin T Baselin e (0-15) ng/L Troponin T 120 Min minto 19.52 H (0-15) ng/L Delta Troponin T -1.48 L (0-10) ABS# Troponin T Hi Sens 6Hr (0-15) ng/L Troponin T Hi Sens 6Hr Delta (0-12) ng/L NT-Pro-B Natriuret Pep (0-125) pg/mL Total Protein (6.6-8.7) g/dL Albumin (3.5-5.2) g/dL Globulin (1.3-4.6) g/dL Lipase (13-60) U/L TSH 4.01 (0.27-4.20) uIU/ mL Urine Color (Yellow) Urine Appearance (CLEAR) Urine pH (5-7) Ur Specific Gravit y (1.005-1.030) Urine Protein (Negative) Urine Glucose (UA) (Normal) Urine Ketones (Negative) Urine Blood (Negative) Urine Nitrate (Negative) Urine Bilirubin (Negative) Urine Urobilinogen (Negative) mg/dL Ur Leukocyte Joy ase (Negative) Urine RBC (0-2) /hpf Urine WBC (0-5) /hpf Ur Squamous Epith Cells (0-5) /hpf Ur Transition Epit h Cell /hpf Amorphous Sediment Urine Bacteria (NONE) /hpf Hyaline Casts /lpf Urine Mucus /hpf Urine Opiates Scre en (Negative) ng/mL Ur Barbiturates Sc reen (Negative) ng/mL Ur Phencyclidine S crn (Negative) ng/mL Ur Amphetamines Sc reen (Negative) ng/mL U Benzodiazepines Scrn (Negative) ng/mL Urine Cocaine Scre en (Negative) ng/mL U Marijuana (THC) Screen (Negative) ng/mL 06/25/20 06/25/20 06/25/20 Range/Units 15:41 15:41 16:42 WBC (4.0-10.0) 10^3/ uL RBC (4.1-5.3) 10^6/u L Hgb (11.7-16.6) g/dL Hct (42.0-52.0) % MCV (80-94) fL MCH (28.0-34.0) pg MCHC (30.0-36.0) g/dL RDW (12.1-15.1) % Plt Count (130-400) 10^3/c mm MPV (7.4-10.4) fL Neut % (Auto) % Lymph % (Auto) % Mccormick % (Auto) % Eos % (Auto) % Baso % (Auto) % Neut # (Auto) (1.8-7.7) 10^3/u L Lymph # (Auto) (0.8-4.8) 10^3/u L Mccormick # (Auto) (0.2-0.9) 10^3/u L Eos # (Auto) (0.0-0.8) 10^3/u L Baso # (Auto) (0.0-0.1) 10^3/u L Nucleated RBC % (a uto) % Nucleated RBCs # /100WBC Sodium (136-145) mmol/L Potassium (3.5-5.1) mmol/L Chloride (98-107) mmol/L Carbon Dioxide (22-29) mmol/L Anion Gap (5-19) BUN (6-20) mg/dL Creatinine (0.7-1.2) mg/dL GFR Calculation (90-130) mL/min Glucose (65-115) mg/dL Estimat Average Gl ucose Hemoglobin A1c (4.0-6.0) % Calculated Osmolal ity (285-295) mOsm/k g Calcium (8.5-10.5) mg/dL Total Bilirubin (0.15-1.2) mg/dL AST (0-40) U/L ALT (0-41) U/L Alkaline Phosphata se (40-130) IU/L Troponin T Baselin e (0-15) ng/L Troponin T 120 Min minto (0-15) ng/L Delta Troponin T (0-10) ABS# Troponin T Hi Sens 6Hr 32.06 H (0-15) ng/L Troponin T Hi Sens 6Hr Delta 11.06 (0-12) ng/L NT-Pro-B Natriuret Pep (0-125) pg/mL Total Protein (6.6-8.7) g/dL Albumin (3.5-5.2) g/dL Globulin (1.3-4.6) g/dL Lipase (13-60) U/L TSH (0.27-4.20) uIU/ mL Urine Color Dark yellow (Yellow) Urine Appearance Clear (CLEAR) Urine pH 5 (5-7) Ur Specific Gravit y 1.020 (1.005-1.030) Urine Protein 1+ H (Negative) Urine Glucose (UA) Norm (Normal) Urine Ketones 1+ H (Negative) Urine Blood 2+ H (Negative) Urine Nitrate Negative (Negative) Urine Bilirubin 1+ H (Negative) Urine Urobilinogen Norm (Negative) mg/dL Ur Leukocyte Joy ase Negative (Negative) Urine RBC 0-4 H (0-2) /hpf Urine WBC 5-10 H (0-5) /hpf Ur Squamous Epith Cells None (0-5) /hpf Ur Transition Epit h Cell Rare /hpf Amorphous Sediment Not Reportable Urine Bacteria 1+ H (NONE) /hpf Hyaline Casts 0-4 H /lpf Urine Mucus 1+ /hpf Urine Opiates Scre en Negative (Negative) ng/mL Ur Barbiturates Sc reen Negative (Negative) ng/mL Ur Phencyclidine S crn Negative (Negative) ng/mL Ur Amphetamines Sc reen Negative (Negative) ng/mL U Benzodiazepines Scrn Positive H (Negative) ng/mL Urine Cocaine Scre en Negative (Negative) ng/mL U Marijuana (THC) Screen Negative (Negative) ng/mL Imaging Data^: CXR: Attestation: I personally reviewed and interpreted this imaging study as follows: Radiologist's impression: [address] [place] [address] XRay Report Signed Patient: Kin Lujan Unit #: [id number] : 1965 Age/Sex: 55 / M ADM Date: 06/25/20 Loc: ER Room/Bed: Attending Dr: Ordering Provider/Ordering MD: Derrick Paulson Date of Service: 06/25/20 Procedure(s): XR chest 1V portable [id number] Accession Number(s): [id number] Report Number: [id number] PROCEDURE INFORMATION: Exam: XR Chest, 1 View Exam date and time: 06/25/2020 10:45 AM Age: 55 years old Clinical indication: Cough and dyspnea; Prior surgery; Additional info: Weakness TECHNIQUE: Imaging protocol: XR of the chest Views: 1 view. COMPARISON: CR XR chest 1V portable [id number] 06/03/2020 2:37 AM FINDINGS: Tubes, catheters and devices: AICD. Lungs: Hypoinflation, without significant airspace disease. Pleural space: No pleural effusion. Heart/Mediastinum: No cardiomegaly. Bones/joints: Unremarkable. When correlating with the previous study, no significant interval changes are present. XR/XR chest 1V portable [id number] IMPRESSION: Hypoinflation, without significant airspace or pleural disease. Dictated By: Daniel Villalpando MD Signed By: Daniel Villalpando MD Signed Date/Time: 06/25/20 1153 DD/ 1152 CT Abd/Pel: Attestation: I personally reviewed and interpreted this imaging study as follows: Radiologist's impression: [address] [address] [address] Scan Report Signed Patient: Kin Lujan Unit #: [id number] : 1965 Age/Sex: 55 / M ADM Date: 06/25/20 Loc: ER Room/Bed: Attending Dr: Ordering Provider/Ordering MD: Drerick Paulson Date of Service: 06/25/20 Procedure(s): CT abdomen pelvis wo con [id number] Accession Number(s): [id number] Report Number: [id number] PROCEDURE INFORMATION: Exam: CT Abdomen And Pelvis Without Contrast Exam date and time: 06/25/2020 12:05 PM Age: 55 years old Clinical indication: Nausea and vomiting; Additional info: N/v TECHNIQUE: Imaging protocol: Computed tomography of the abdomen and pelvis without contrast. Radiation optimization: All CT scans at this facility use at least one of these dose optimization techniques: automated exposure control; mA and/or kV adjustment per patient size (includes targeted exams where dose is matched to clinical indication); or iterative reconstruction. COMPARISON: CT abdomen pelvis w con* [id number] 06/05/2020 4:45 PM RADIATION DOSE METRICS: Total DLP (mGy-cm): 1742.41 FINDINGS: Detailed evaluation of the abdominal and pelvic viscera is somewhat limited in the absence of intravenous contrast. Inferior thorax: AICD with beam hardening artifact. Interstitial prominence and chronic granulomatous disease. Asymmetric elevation of the right hemidiaphragm and subsegmental atelectasis. Liver: 1.5 cm hepatic dome cyst. Fatty infiltration of the liver and hepatic granuloma. Gallbladder and bile ducts: Cholelithiasis. Pancreas: No pancreatic mass or ductal dilatation. Spleen: No splenomegaly. Adrenal glands: Stable 2.2 cm hypodense right adrenal nodular lesion. Kidneys and ureters: Nonobstructing 6 mm left renal calculus. Stable 8 mm nodular hypodense lesion in the posterior left kidney. Stomach and bowel: Questionable wall thickening in the nondistended stomach. No significant small bowel dilatation. Prominent stool. Diverticula, without pericolonic inflammation. Appendix: No acute appendicitis. Intraperitoneal space: No free fluid. Vasculature: Normal caliber of the abdominal aorta. Lymph nodes: Subcentimeter lymph nodes. Urinary bladder: Nondistended bladder with mild wall thickening. Reproductive: Prostate calcification. Bones/joints: Degenerative change . Soft tissues: Small umbilical hernia. CT/CT abdomen pelvis con [id number] IMPRESSION: 1. Cholelithiasis. 2. Nonobstructing 6 mm left renal calculus. 3. Additional findings as described above. Radiation Dose CTDIVOL = (mGy): DLP = 1742.41 (mGy-cm) Dictated By: Daniel Villalpando MD Signed By: Daniel Villalpando MD Signed Date/Time: 06/25/20 1234 DD/ 1233 EKG Data^: EKG 1: Attestation: I personally reviewed and interpreted this EKG as follows: EKG interpretation date: 06/25/20 Interpretation: Electronic ventricular pacemaker, [address] segment elevation or depression seen. Discharge Plan Discharge Patient Disposition: Admitted As Inpatient Admit Provider: Christal Masterson Clinical Impression: Intractable nausea and vomiting, Abnormal weight loss Condition: Stable Coding Level of Care Code ED Hat Binder for Chg Fwd Exam Comprehensive
--- NOTE | 2020-06-25 10:43 | XRR_ITS ---
PROCEDURE INFORMATION: Exam: XR Chest, 1 View Exam date and time: 06/25/2020 10:45 AM Age: 55 years old Clinical indication: Cough and dyspnea; Prior surgery; Additional info: Weakness TECHNIQUE: Imaging protocol: XR of the chest Views: 1 view. COMPARISON: CR XR chest 1V portable [id number] 06/03/2020 2:37 AM FINDINGS: Tubes, catheters and devices: AICD. Lungs: Hypoinflation, without significant airspace disease. Pleural space: No pleural effusion. Heart/Mediastinum: No cardiomegaly. Bones/joints: Unremarkable. When correlating with the previous study, no significant interval changes are present. XR/XR chest 1V portable [id number] IMPRESSION: Hypoinflation, without significant airspace or pleural disease.
--- NOTE | 2020-06-25 10:44 | ECG_ITS ---
[facility] Test Date: 2020-06-25 Pat Name: Kin Lujan Department: Room: Gender: Male Pot Maker: : 1965 Requested By: Derrick Paulson Order Number: [id number] Agustin MD: Guerline Pro M.D. Measurements Intervals [place] Rate: 88 P: 17 IA: 157 QRS: 233 QRSD: 157 T: 35 QT: 443 QTc: 537 Interpretive Statements A sensed V paced rhythm compared to ECG 06/04/2020 09:31:17 No significant changes Electronically Signed On 06-26-2020 17:26:19 CANDY STARCH MOLD PRINTER by Guerline Pro M.D. [id number]
[2020-06-25] MEDS: sodium chloride 0.9% 500 ML 999 ML IV ×2 (10:48→15:46)
[2020-06-25] MEDS: ondansetron 2 mg/ML SDV 2 mL 4 MG IVP (10:48)
[2020-06-25 11:00] LABS: Basophils % 0.4 %; Eosinophils % 0.2 %; Hemoglobin 13.8 g/dL (11.7-16.6); Lymphocytes # 1.6 10^3/uL (0.8-4.8); Lymphocytes % 15.2 %; Mean Corpuscular HGB Conc 33.7 g/dL (30.0-36.0); Mean Corpuscular Hemoglobin 28.2 pg (28.0-34.0); Mean Corpuscular Volume 83.7 fL (80-94); Mean Platelet Volume 11.9 fL (7.4-10.4); Monocytes % 9.8 %; Neutrophils # 7.79 10^3/uL (1.8-7.7); Neutrophils % 73.5 %; Nucleated Red Blood Cells % 0.2 %; Platelet Count 300 10^3/cmm (130-400); Red Cell Distribution Width 15.5 % (12.1-15.1); White Blood Count 10.6 10^3/uL (4.0-10.0)
[2020-06-25 11:24] LABS: Troponin(5th) Baseline 21 ng/L (0-15)
[2020-06-25 11:27] LABS: Alanine Aminotransferase < 5 U/L (0-41); Albumin Level 3.9 g/dL (3.5-5.2); Alkaline Phosphatase 102 IU/L (40-130); Aspartate Amino Transferase 11 U/L (0-40); Blood Urea Nitrogen 13 mg/dL (6-20); Calcium 9.2 mg/dL (8.5-10.5); Carbon Dioxide 23 mmol/L (22-29); Chloride 94 mmol/L (98-107); Creatinine Clr Calc Pharmacy 60.1161; Globulin 3.2 g/dL (1.3-4.6); Glomerular Filtration Rate 41.8 mL/min (90-130); Glucose 142 mg/dL (65-115); Lipase 40 U/L (13-60); NT Pro B Type Natriuretic Pept 357 pg/mL (0-125); Osmolality Calculated 279 mOsm/kg (285-295); Sodium 133 mmol/L (136-145); Total Bilirubin 0.9 mg/dL (0.15-1.2); Total Protein 7.1 g/dL (6.6-8.7)
[2020-06-25 11:37] LABS: Anion Gap 19.8 (5-19); Potassium 3.8 mmol/L (3.5-5.1)
--- NOTE | 2020-06-25 12:02 | CTR_ITS ---
PROCEDURE INFORMATION: Exam: CT Abdomen And Pelvis Without Contrast Exam date and time: 06/25/2020 12:05 PM Age: 55 years old Clinical indication: Nausea and vomiting; Additional info: N/v TECHNIQUE: Imaging protocol: Computed tomography of the abdomen and pelvis without contrast. Radiation optimization: All CT scans at this facility use at least one of these dose optimization techniques: automated exposure control; mA and/or kV adjustment per patient size (includes targeted exams where dose is matched to clinical indication); or iterative reconstruction. COMPARISON: CT abdomen pelvis w con* [id number] 06/05/2020 4:45 PM RADIATION DOSE METRICS: Total DLP (mGy-cm): 1742.41 FINDINGS: Detailed evaluation of the abdominal and pelvic viscera is somewhat limited in the absence of intravenous contrast. Inferior thorax: AICD with beam hardening artifact. Interstitial prominence and chronic granulomatous disease. Asymmetric elevation of the right hemidiaphragm and subsegmental atelectasis. Liver: 1.5 cm hepatic dome cyst. Fatty infiltration of the liver and hepatic granuloma. Gallbladder and bile ducts: Cholelithiasis. Pancreas: No pancreatic mass or ductal dilatation. Spleen: No splenomegaly. Adrenal glands: Stable 2.2 cm hypodense right adrenal nodular lesion. Kidneys and ureters: Nonobstructing 6 mm left renal calculus. Stable 8 mm nodular hypodense lesion in the posterior left kidney. Stomach and bowel: Questionable wall thickening in the nondistended stomach. No significant small bowel dilatation. Prominent stool. Diverticula, without pericolonic inflammation. Appendix: No acute appendicitis. Intraperitoneal space: No free fluid. Vasculature: Normal caliber of the abdominal aorta. Lymph nodes: Subcentimeter lymph nodes. Urinary bladder: Nondistended bladder with mild wall thickening. Reproductive: Prostate calcification. Bones/joints: Degenerative change . Soft tissues: Small umbilical hernia. CT/CT abdomen pelvis wo con [id number] IMPRESSION: 1. Cholelithiasis. 2. Nonobstructing 6 mm left renal calculus. 3. Additional findings as described above. Radiation Dose CTDIVOL = (mGy): DLP = 1742.41 (mGy-cm)
[2020-06-25] MEDS: metoclopramide 5 mg/mL SDV 2 mL 10 MG IVP ×2 (12:14→15:34)
--- NOTE | 2020-06-25 12:44 | ECG_ITS ---
[facility] Test Date: 2020-06-25 Pat Name: Kin Lujan Department: Room: Gender: Male Scrub Technician: : 1965 Requested By: Derrick Paulson Order Number: [id number] Agustin MD: Guerline Pro M.D. Measurements Intervals [place] Rate: 76 P: 16 WV: 148 QRS: 234 QRSD: 157 T: 31 QT: 475 QTc: 534 Interpretive Statements ELECTRONIC VENTRICULAR PACEMAKER ABNORMAL RHYTHM ECG Compared to ECG 06/25/2020 11:05:02 No significant changes Electronically Signed On 06-26-2020 17:32:21 COLLECTIONS ANALYST by Guerline Pro M.D. [id number]
[2020-06-25 14:45] LABS: Troponin 5 2HR 19.52 ng/L (0-15)
[2020-06-25 14:48] LABS: Troponin 5 2HR Delta -1.48 ABS# (0-10)
[2020-06-25] MEDS: famotidine 20 mg/2 mL INJ IVP ×2 (15:34→20:45)
[2020-06-25 16:05] LABS: Glucose Urine UA Norm (Normal); Ketones Urine 1+ (Negative); Protein Urine 1+ (Negative); Urine Appearance Clear (CLEAR); Urine Color Dark Yellow (Yellow); pH Urine 5 (5-7)
[2020-06-25 16:06] LABS: Add Urine Culture? No; Bacteria Urine 1+ /hpf; Bilirubin Urine 1+ (Negative); Blood Urine 2+ (Negative); Hyaline Casts Urine 0-4 /lpf; Leukocyte Esterase Urine Negative (Negative); Mucus Urine 1+ /hpf; Nitrate Urine Negative (Negative); RBC Urine 0-4 /hpf (0-2); Transitional Epi Cells Urine RARE /hpf; Urobilinogen Urine Norm (Negative)
--- NOTE | 2020-06-25 16:44 | ECG_ITS ---
[facility] Test Date: 2020-06-25 Pat Name: Kin Lujan Department: Room: Gender: Male Bottom Brusher: : 1965 Requested By: Derrick Paulson Order Number: [id number] Agustin MD: Guerline Pro M.D. Measurements Intervals [place] Rate: 80 P: 21 NV: 149 QRS: 232 QRSD: 161 T: 35 QT: 459 QTc: 530 Interpretive Statements A sensed V paced rhythm Compared to ECG 06/25/2020 13:59:40 No significant changes Electronically Signed On 06-26-2020 17:32:17 MANAGER BIOLOGICS by Guerline Pro M.D. [id number]
[2020-06-25 17:10] LABS: Troponin 5 6HR 32.06 ng/L (0-15); Troponin 5 6HR Delta 11.06 ng/L (0-12)
--- NOTE | 2020-06-25 18:02 | P.HP_ITS ---
Providers/Chief Complaint Admitting Physician: Christal Masterson MD Chief Complaint: Dehydarted/unable to eat or drink History of Present Illness Kin Lujan is a 55 year old male who has past medical history of Parkinson's disease, heart failure reduced action fraction status post AICD/pacemaker placement, diabetes, hypertension dyslipidemia who presents to the ER with intractable nausea and vomiting. He was discharged with similar complaints on June 06, 2020. He reports he stopped taking antiemetics. He reports his last BM was 2 days ago. Normally goes every 4 to 5 days. He does have history of diabetes. He has abnormal UA. Unclear when his last EGD was. He is noted to have some hematuria and nephrolithiasis nonobstructive on scan. He denies abdominal pain headaches or change in vision. Denies any recent close contacts with diarrhea or abdominal pain. In the ER patient had labs completed as well as a CT of his abdomen. A urine drug screen is pending. Review of Systems General: Reports: 10 or more systems reviewed and unremarkable except in HPI and below Const: Denies: fever(s) or chills Eyes: Denies: change in vision or blurry vision ENMT: Denies: throat pain Card: Denies: chest pain or palpitations Resp: Denies: dyspnea or productive cough GI: Reports: nausea, vomiting and constipation; Denies: abdominal pain : Denies: flank pain or difficulty urinating Musc: Reports: back pain; Denies: neck pain Skin/Breast: Denies: rash or pruritus Neuro: Reports: difficulty walking; Denies: headache(s) or vertigo Psych: Denies: anxiety or depression Medications/Allergies Home Medications Medication Instructions Recorded Confirmed Last Taken Type carbidopa-levodopa See Rx Instructions .ROUTE .COMPLEX 06/03/20 06/25/20 06/25/20 History carvedilol 12.5 mg PO BID@080006/03/20 06/25/20 06/24/20 History fluoxetine 40 mg PO DAILY@0800 06/03/20 06/25/20 06/24/20 History glipizide 5 mg PO DAILY@0800 06/03/20 06/25/20 06/24/20 History lisinopril 20 mg PO BID@080006/03/20 06/25/20 06/24/20 History rivastigmine tartrate 3 mg PO BID@0800,199906/03/20 06/25/20 06/24/20 History rosuvastatin 20 mg PO DAILY@0800 06/03/20 06/25/20 06/24/20 History ondansetron HCl [Zofran] 4 mg PO Q8H PRN #10 tab 06/04/20 06/25/20 06/24/20 Rx aspirin 81 mg PO DAILY@0800 06/25/20 06/25/20 06/24/20 History pantoprazole 40 mg PO DAILY@0800 06/25/20 06/25/20 06/25/20 History tamsulosin 0.4 mg PO DAILY@0806/25/20 06/25/20 06/24/20 History Allergies Allergy/AdvReac Type Severity Reaction Status Date / Time No Known Allergies Allergy Verified 06/03/20 02:13 PFSH Acute PFSH: Medical History Abnormal colonoscopy Benign polyp removal Diabetes Dyslipidemia Heart failure with reduced ejection fraction Hypertension Parkinsons disease Surgical History AICD (automatic cardioverter/defibrillator) present Family History Father CAD (coronary artery disease) Denies family history of Cancer Social History Smoking and tobacco status: never smoked Alcohol intake: never Lives independently: Yes Housing: House Vitals/I&O/Wt Last Vital Signs Temp 97.7 F 06/25/20 10:13 Pulse 68 06/25/20 17:00 Resp 18 06/25/20 17:00 BP 118/50 06/25/20 17:00 Pulse Ox 94 06/25/20 17:00 Weight last 48 hrs Weight 232 lb Physical Exam Const: COMMON NORMALS: patient oriented x3 and alert GENERAL APPEARANCE: cooperative Resp: COMMON NORMALS: normal respiratory effort and No use of accessory muscles EFFORT & INSPECTION: Yes able to speak in complete sentences Cardio: COMMON NORMALS: regular rate GI: COMMON NORMALS: Normal to inspection, nondistended, normoactive bowel sounds present and Soft to palpation OTHER: decrease bowel sounds Neuro: SENSORIUM/ORIENTATION: Yes alert, Yes oriented to person and Yes oriented to place Data : 06/25/20 10:39 06/25/20 10:39 A&P Assessment and plan (1) Intractable nausea and vomiting: Unclear etiology could be secondary to constipation last BM 2 days ago. Normally goes every 4 to 5 days. He is on multiple medications which can induce nausea and vomiting. He is also noted to have abnormal UA. It would be worthwhile for him to be evaluated by urology and GI for cystoscopy and EGD at some point. We will scan his head, check a TSH, check a random cortisol, continue antiemetics and IV fluids colace Status: Acute (2) Abnormal weight loss: Likely secondary to poor p.o. intake Status: Acute (3) UTI (urinary tract infection): Will order Rocephin, hematuria noted he has nephrolithiasis follow-up cultures discontinue if negative Status: Acute (4) Benign prostatic hyperplasia with urinary obstruction: continue home medications Status: Acute (5) Diabetes: fsbs ssi Status: Acute (6) Heart failure with reduced ejection fraction: resume home meds Status: Acute (7) Constipation: add colace Status: Acute Attestations Medical Necessity Statement*: Kin Lujan's hospital stay will require greater than 2 midnights for Coding Level of Care Code Acute Superintendent Police for [facility] Fwd Diagnoses Intractable nausea and vomiting R11.2 Abnormal weight loss R63.4 UTI (urinary tract infection) N39.0 Benign prostatic hyperplasia with urinary obstruction N40.1; N13.8 Diabetes E11.9 Heart failure with reduced ejection fraction I50.20 Constipation K59.00
[2020-06-25 18:17] LABS: Amphetamines Screen Urine Negative (Negative); Barbiturates Screen Urine Negative (Negative); Benzodiazepines Screen Urine Positive (Negative); Cocaine Screen Urine Negative (Negative); Opiate Screen Urine Negative (Negative); PCP Screen Urine Negative (Negative); THC Screen Urine Negative (Negative)
--- NOTE | 2020-06-25 18:18 | CTR_ITS ---
PROCEDURE INFORMATION: Exam: CT Head Without Contrast Exam date and time: 06/25/2020 7:48 PM Age: 55 years old Clinical indication: Other: Nausea; Additional info: Intractable nausea TECHNIQUE: Imaging protocol: Computed tomography of the head without contrast. Radiation optimization: All CT scans at this facility use at least one of these dose optimization techniques: automated exposure control; mA and/or kV adjustment per patient size (includes targeted exams where dose is matched to clinical indication); or iterative reconstruction. ADDITIONAL STUDY INFORMATION: Total DLP (mGy-cm): 884.43 COMPARISON: No relevant prior studies available. FINDINGS: Examination is limited by artifacts from patient motion. Evaluation of the brain demonstrates no convincing areas of abnormal density when allowing for artifacts from patient motion. There is mild cerebral cortical atrophy. Ventricles do not appear significantly dilated. No definite depressed calvarial fracture is demonstrated. Visualized paranasal sinuses and mastoid air cells demonstrate no significant opacification. CT/CT head wo con* [id number] IMPRESSION: No definite acute intracranial process is demonstrated when allowing for artifacts from patient motion. Radiation Dose CTDIVOL = (mGy): DLP = 884.43 (mGy-cm)
[2020-06-25 18:50] LABS: Thyroid Stimulating Hormone 4.01 uIU/mL (0.27-4.20)
[2020-06-25 18:57] LABS: Estmated Average Glucose 128; Hemoglobin A1C 6.1 % (4.0-6.0)
[2020-06-25 20:36] LABS: Glucose Point of Care 106 mg/dL (70-110)
[2020-06-25] MEDS: carbidopa-levodopa 25-100mg Tablet 1.5 EACH PO (20:45)
[2020-06-25] MEDS: sucralfate 1 gm Tablet PO (20:46)
[2020-06-25] MEDS: carvedilol 12.5 mg Tablet PO (20:47)
[2020-06-25] MEDS: sodium chloride 0.9% 1,000 ML 75 ML IV (20:48)
[2020-06-25] MEDS: cefTRIAXone 2,000 MG in sodium chloride 0.9% (plus) 50 ML 100 MG IV (20:50)
[2020-06-26] VITALS (7 sets, daily range): BP systolic 143–180; BP diastolic 90–105; PULSE 66–79; RESP 18; TEMP 36.4–36.8; O2SAT 95–98
[2020-06-26 04:29] LABS: Basophils % 0.5 %; Eosinophils % 0.4 %; Hematocrit 37.1 % (42.0-52.0); Hemoglobin 12.1 g/dL (11.7-16.6); Lymphocytes # 1.6 10^3/uL (0.8-4.8); Lymphocytes % 20.7 %; Mean Corpuscular HGB Conc 32.6 g/dL (30.0-36.0); Mean Corpuscular Hemoglobin 27.6 pg (28.0-34.0); Mean Corpuscular Volume 84.7 fL (80-94); Mean Platelet Volume 11.2 fL (7.4-10.4); Monocytes # 0.9 10^3/uL (0.2-0.9); Monocytes % 11.4 %; Neutrophils # 4.99 10^3/uL (1.8-7.7); Neutrophils % 66.1 %; Nucleated Red Blood Cells % 0 %; Platelet Count 187 10^3/cmm (130-400); Red Blood Count 4.38 10^6/uL (4.1-5.3); Red Cell Distribution Width 15.9 % (12.1-15.1); White Blood Count 7.6 10^3/uL (4.0-10.0)
[2020-06-26 04:55] LABS: Alanine Aminotransferase < 5 U/L (0-41); Albumin Level 3.2 g/dL (3.5-5.2); Alkaline Phosphatase 78 IU/L (40-130); Anion Gap 16.4 (5-19); Aspartate Amino Transferase 9 U/L (0-40); Blood Urea Nitrogen 14 mg/dL (6-20); Calcium 8.7 mg/dL (8.5-10.5); Carbon Dioxide 24 mmol/L (22-29); Chloride 99 mmol/L (98-107); Globulin 3.4 g/dL (1.3-4.6); Glomerular Filtration Rate 52.2 mL/min (90-130); Glucose 105 mg/dL (65-115); Magnesium 2.3 mg/dL (1.7-2.3); Osmolality Calculated 283 mOsm/kg (285-295); Phosphorus 4.2 mg/dL (2.5-4.5); Potassium 3.4 mmol/L (3.5-5.1); Sodium 136 mmol/L (136-145); Total Bilirubin 0.5 mg/dL (0.15-1.2); Total Protein 6.6 g/dL (6.6-8.7)
[2020-06-26 05:42] LABS: Cortisol Random 16.84 ug/mL (2.47-19.5)
[2020-06-26] MEDS: famotidine 20 mg/2 mL INJ IVP ×2 (05:49→17:34)
[2020-06-26 07:08] LABS: Glucose Point of Care 98 mg/dL (70-110)
[2020-06-26] MEDS: carvedilol 12.5 mg Tablet PO ×2 (07:56→20:37)
[2020-06-26] MEDS: fluoxetine 20 mg Capsule 40 MG PO (07:56)
[2020-06-26] MEDS: carbidopa-levodopa 25-100mg Tablet 1.5 EACH PO ×4 (07:56→20:36)
[2020-06-26] MEDS: tamsulosin 0.4 mg Capsule PO (07:56)
[2020-06-26] MEDS: aspirin 81 mg EC Tablet PO (07:56)
[2020-06-26] MEDS: docusate sodium 100 mg Capsule PO (08:00)
--- NOTE | 2020-06-26 09:38 | PC.CHAP ---
Pastoral Care Encounter/Spiritual Assessment Type of Contact [x] Declined electrical system specialist visit [] Patient/Family/Request visit [] Outpatient visit [] Follow-up visit [] Physician referral [] Code/Alert [x] Routine visit [] Staff referral [] Actively dying [] Patient sleeping [] Family support [] [] Out of room [] Palliative care [] [] Receiving care in room [] Pre-surgical visit [] Trauma [] Long length of stay [] ICU visit [] Other: Relational/Emotional Strength [] Patient feels connected with others/family/visitors/staff [] Distress [] Loneliness/isolation [] Abandonment Spirituality of Patient [] Person of Katerina [] Attends Uatsdin of their Katerina [] Believes in Prayer [] Reads Bible or Confucianism materials [] There are Spiritual issues to be addressed Coding Spec Interventions [] Prayer [] Active listening [] Non-anxious presence [] Spiritual/emotional support [] Crisis/trauma care [] Spiritual counseling [] Bereavement support [] Provided bereavement packet [] Provided Bible/devotional materials [] Provided toy/stuffed animal, coloring book to patient or family member [] Provided Communion [] Anointing/[place] [] Salvation [] Completed spiritual assessment [] Other: Impact on Illness or Injury [] Angry [] Fearful [] Anxious [] Often cries [] Exhaustion [] Unable to work [] Unable to attend caodaism [] Unable to walk/stand [] Unable to read [] Unable to drive [] Unable to eat/drink [] Unable to sleep [] Unable to be with family [] Patient intubated [] Other: Summary declined pray Time spent with patient 10 min
[2020-06-26 10:56] LABS: Glucose Point of Care 87 mg/dL (70-110)
[2020-06-26] MEDS: sodium chloride 0.9% 1,000 ML 75 ML IV (11:42)
--- NOTE | 2020-06-26 12:57 | PM.PN ---
Subjective Subjective: Interval history: 55-year-old male with a past medical history significant for Parkinson's disease, chronic systolic heart failure status post AICD / pacemaker placement, hypertension, dyslipidemia, and diabetes mellitus who presented to the hospital with poor p.o. intake. Patient was recently admitted for similar complaints in late May. At that time his symptoms had resolved. Again presented to the hospital however this time stated he has been having intractable nausea vomiting. States he has lost over 30 lb in the last month. noted similar complaints with solids and liquids. Laboratory workup on arrival showed a WBC of 10.6, hemoglobin of 13.8, hematocrit of 41.0 and a platelet count of 300. sodium 133, potassium 3.8, chloride 94, bicarb 23, BUN 13 and creatinine of 1.7. At the time of discharge from previous hospitalization creatinine was 0.9. Hemoglobin A1c of 6.1%. LFTs were within normal limits. Troponin T baseline was 21. proBNP of 357. Lipase of 40. TSH of 4.01. Urinalysis was negative for nitrites and leukocyte esterase. Imaging studies included a chest x-ray which did not show any evidence of acute cardiopulmonary abnormality. CT abdomen pelvis was repeated which showed cholelithiasis, nonobstructing 6 mm left renal calculus. CT head was performed which did not show any evidence of acute intracranial abnormality. Patient was started on IV fluids admitted to the hospital. 06/25 Patient noted nausea, has been NPO since admission. Feels scared to take in oral intake due to recurranc of nausea and vomiting. Can not recall when last EGD was. No fever, or chills. No chest pain, abdominal pain, diarrhea or constipation Medications: Reviewed: Yes Vitals/I&O/Wt Last Vital Signs Temp 97.6 F 06/26/20 11:30 Pulse 66 06/26/20 11:30 Resp 18 06/26/20 11:30 BP 145/99 06/26/20 11:30 Pulse Ox 95 06/26/20 11:30 06/25/20 06/26/20 06/26/20 22:59 06:59 14:59 Intake Total 60 / 60 1000 / 1000 Output Total 200 / 200 Balance 60 / 60 800 / 800 Weight last 48 hrs Weight 105.233 kg Physical Exam Narrative: EXAM NARRATIVE: General : Alert, awake, NAD HEENT : Grossly unremarkable CVS : NSR CHEST : Non-labored respiration ABD: Soft, NT, ND EXT : No edema Data : 06/26/20 04:10 06/26/20 04:10 A&P Assessment and plan (1) Intractable nausea and vomiting: Status: Acute (2) Abnormal weight loss: Status: Acute (3) UTI (urinary tract infection): Status: Acute (4) Benign prostatic hyperplasia with urinary obstruction: Status: Acute (5) Diabetes: Status: Acute (6) Heart failure with reduced ejection fraction: Status: Acute (7) Constipation: Status: Acute Intractable nausea/vomiting - Unable to tolerate oral intake - Second admission for similar complaint - CT abd/pelvis - no acute abnormality - No prior EGD - Continue PPI - Possible gastroparesis - Will consult general surgery for possible EGD - CLD now - NPO at midnight - Will hold aspirin for now Acute renal failure - Creatinine 1.7 -> 1.4 - Repeat BMP in AM - Continue IVF - Renal dosing of meds Diabetes Mellitus - A1c 6.1% - Sliding scale insulin - QACHS glucose checks Benign Prostatic hyperplasia - Flomax 0.4 mg PO daily - Outpatient urology eval Hypertension - Coreg 12.5 mg PO BID Depression - Prozac 40 mg PO daily Parkinson disease - Early onset? - Sinimet / Exelon 3 mg PO BID GI ppx - Pepcid 20 mg IV BID Attestations Medical Necessity Statement*: Patient require continued hospitalization for management of intractable nausea vomiting and acute renal failure requiring IV fluids. Time Spent in Patient Care: Greater than 35 minutes (>than 50% of time spent in counselling and/or direct pt care on unit). Coding Level of Care Code Acute Project Management Specialist for [facility] Fwd Diagnoses Intractable nausea and vomiting R11.2 Abnormal weight loss R63.4 UTI (urinary tract infection) N39.0 Benign prostatic hyperplasia with urinary obstruction N40.1; N13.8 Diabetes E11.9 Heart failure with reduced ejection fraction I50.20 Constipation K59.00
[2020-06-26 17:02] LABS: Glucose Point of Care 89 mg/dL (70-110)
[2020-06-26 20:42] LABS: Glucose Point of Care 85 mg/dL (70-110)
[2020-06-27] VITALS (13 sets, daily range): BP systolic 114–168; BP diastolic 85–103; PULSE 65–84; RESP 16–20; TEMP 36.4–37.6; O2SAT 94–99
[2020-06-27] MEDS: sodium chloride 0.9% 1,000 ML 75 ML IV ×2 (01:00→12:16)
[2020-06-27 05:06] LABS: Basophils % 0.4 %; Eosinophils # 0.1 10^3/uL (0.0-0.8); Eosinophils % 1.5 %; Hematocrit 36.2 % (42.0-52.0); Hemoglobin 11.7 g/dL (11.7-16.6); Lymphocytes # 1.4 10^3/uL (0.8-4.8); Lymphocytes % 20.8 %; Mean Corpuscular HGB Conc 32.3 g/dL (30.0-36.0); Mean Corpuscular Hemoglobin 28.1 pg (28.0-34.0); Mean Corpuscular Volume 86.8 fL (80-94); Mean Platelet Volume 11.1 fL (7.4-10.4); Monocytes # 0.6 10^3/uL (0.2-0.9); Monocytes % 9.2 %; Neutrophils # 4.62 10^3/uL (1.8-7.7); Neutrophils % 67.4 %; Nucleated Red Blood Cells % 0 %; Platelet Count 166 10^3/cmm (130-400); Red Blood Count 4.17 10^6/uL (4.1-5.3); Red Cell Distribution Width 15.9 % (12.1-15.1); White Blood Count 6.9 10^3/uL (4.0-10.0)
[2020-06-27 05:35] LABS: Alanine Aminotransferase < 5 U/L (0-41); Albumin Level 3.2 g/dL (3.5-5.2); Alkaline Phosphatase 82 IU/L (40-130); Anion Gap 12.7 (5-19); Aspartate Amino Transferase 9 U/L (0-40); Blood Urea Nitrogen 10 mg/dL (6-20); Calcium 8.5 mg/dL (8.5-10.5); Carbon Dioxide 26 mmol/L (22-29); Chloride 101 mmol/L (98-107); Globulin 3.3 g/dL (1.3-4.6); Glucose 75 mg/dL (65-115); Osmolality Calculated 280 mOsm/kg (285-295); Potassium 3.7 mmol/L (3.5-5.1); Sodium 136 mmol/L (136-145); Total Bilirubin 0.6 mg/dL (0.15-1.2); Total Protein 6.5 g/dL (6.6-8.7)
[2020-06-27] MEDS: famotidine 20 mg/2 mL INJ IVP ×2 (06:09→17:06)
[2020-06-27 06:26] LABS: Glucose Point of Care 70 mg/dL (70-110)
--- NOTE | 2020-06-27 06:42 | PC.NURSE ---
Summary Patient was very pleasant during shift. He became NPO at midnight. He had a little nausea at the beginning of shift but reported it got better. No complaints of pain and he rested throughout night. Blood glucose reading at 0600 was 70. Jacey decided to give D5W since patient is NPO but there was none so pharmacy was called. Waiting on pharmacy to receive D5W so we can hang it.
--- NOTE | 2020-06-27 06:49 | PC.NURSE ---
AM ACCUCHECK Accucheck this am 70. Is NPO for EGD this am. Is asymptomatic with BS. Hung D5W at 100ml/hr rate per DM protocol until procedure and report to day shift
[2020-06-27] MEDS: dextrose 5 % 500 ML 100 ML IV (06:50)
[2020-06-27] MEDS: docusate sodium 100 mg Capsule PO (08:44)
[2020-06-27] MEDS: carbidopa-levodopa 25-100mg Tablet 1.5 EACH PO ×3 (08:44→17:05)
[2020-06-27] MEDS: fluoxetine 20 mg Capsule 40 MG PO (08:45)
[2020-06-27] MEDS: carvedilol 12.5 mg Tablet PO (08:45)
[2020-06-27] MEDS: tamsulosin 0.4 mg Capsule PO (08:45)
[2020-06-27 11:06] LABS: Glucose Point of Care 90 mg/dL (70-110)
--- NOTE | 2020-06-27 12:59 | P.PN_ITS ---
Subjective Subjective: Interval history: 55-year-old male with a past medical history significant for Parkinson's disease, chronic systolic heart failure status post AICD / pacemaker placement, hypertension, dyslipidemia, and diabetes mellitus who presented to the hospital with poor p.o. intake. Patient was recently admitted for similar complaints in late May. At that time his symptoms had resolved. Again presented to the hospital however this time stated he has been having intractable nausea vomiting. States he has lost over 30 lb in the last month. noted similar complaints with solids and liquids. Laboratory workup on arrival showed a WBC of 10.6, hemoglobin of 13.8, hematocrit of 41.0 and a platelet count of 300. sodium 133, potassium 3.8, chloride 94, bicarb 23, BUN 13 and creatinine of 1.7. At the time of discharge from previous hospitalization creatinine was 0.9. Hemoglobin A1c of 6.1%. LFTs were within normal limits. Troponin T baseline was 21. proBNP of 357. Lipase of 40. TSH of 4.01. Urinalysis was negative for nitrites and leukocyte esterase. Imaging studies included a chest x-ray which did not show any evidence of acute cardiopulmonary abnormality. CT abdomen pelvis was repeated which showed cholelithiasis, nonobstructing 6 mm left renal calculus. CT head was performed which did not show any evidence of acute intracranial abnormality. Patient was started on IV fluids admitted to the hospital. 06/26 Patient noted nausea, has been NPO since admission. Feels scared to take in oral intake due to recurranc of nausea and vomiting. Can not recall when last EGD was. No fever, or chills. No chest pain, abdominal pain, diarrhea or constipation 06/27 Patient noted a difficult time tolerating CLD yesterday. NPO awaiting EGD today. No urinary complaints. Medications: Reviewed: Yes Vitals/I&O/Wt Last Vital Signs Temp 99.2 F 06/27/20 12:00 Pulse 66 06/27/20 12:00 Resp 16 06/27/20 12:00 BP 158/101 06/27/20 12:00 Pulse Ox 97 06/27/20 12:00 06/26/20 06/27/20 06/27/20 22:59 06:59 14:59 Intake Total 530 / 1530 997.5 / 2527.5 845 / 845 Output Total 500 / 700 350 / 1050 150 / 150 Balance 30 / 830 647.5 / 1477.5 695 / 695 Physical Exam Narrative: EXAM NARRATIVE: General : Alert, awake, NAD HEENT : Grossly unremarkable CVS : NSR CHEST : Non-labored respiration ABD: Soft, NT, ND EXT : No edema Data : 06/27/20 04:50 06/27/20 04:50 A&P Assessment and plan (1) Intractable nausea and vomiting: Status: Acute (2) Abnormal weight loss: Status: Acute (3) UTI (urinary tract infection): Status: Acute (4) Benign prostatic hyperplasia with urinary obstruction: Status: Acute (5) Diabetes: Status: Acute (6) Heart failure with reduced ejection fraction: Status: Acute (7) Constipation: Status: Acute Intractable nausea/vomiting - Unable to tolerate oral intake - Second admission for similar complaint - CT abd/pelvis - no acute abnormality - No prior EGD - Continue PPI - Possible gastroparesis / stricture - NPO - General surgery on consult - Plan for EGD today - Will hold aspirin for now Acute renal failure - Resolved - Creatinine 1.7 -> 1.4 - 1.0 - Repeat BMP in AM - Continue IVF - Renal dosing of meds Diabetes Mellitus - A1c 6.1% - Sliding scale insulin - QACHS glucose checks Benign Prostatic hyperplasia - Flomax 0.4 mg PO daily - Outpatient urology eval - Monitor u/o - no retention Hypertension - Coreg 12.5 mg PO BID Depression - Prozac 40 mg PO daily Parkinson disease - Early onset? - Sinimet / Exelon 3 mg PO BID GI ppx - Pepcid 20 mg IV BID Disposition: Likely plan to discharge home once able completed diagnostic work up and able to tolerate PO intake. Anticipate additional 2-3day in hospital. Attestations Medical Necessity Statement*: Continue hospitalization for management of nausea vomiting inability to tolerate oral intake. Time Spent in Patient Care: Greater than 35 minutes (>than 50% of time spent in counselling and/or direct pt care on unit) . Coding Level of Care Code Acute Oven Equipment Repairer for [facility] Fwd Diagnoses Intractable nausea and vomiting R11.2 Abnormal weight loss R63.4 UTI (urinary tract infection) N39.0 Benign prostatic hyperplasia with urinary obstruction N40.1; N13.8 Diabetes E11.9 Heart failure with reduced ejection fraction I50.20 Constipation K59.00
[2020-06-27 17:18] LABS: Glucose Point of Care 68 mg/dL (70-110)
[2020-06-27] MEDS: dextrose 50% syringe 50 mL 25 ML IVP (17:23)
[2020-06-27 17:57] LABS: Glucose Point of Care 115 mg/dL (70-110)
[2020-06-27 18:26] LABS: Glucose Point of Care 89 mg/dL (70-110)
--- NOTE | 2020-06-27 18:30 | PC.NURSE ---
Surgery up to floor at this time to get patient for EGD.
[2020-06-27] MEDS: sodium chloride 0.9% 1,000 ML 30 ML IV ×2 (18:36→19:08)
--- NOTE | 2020-06-27 19:32 | ANES.PREANE2 ---
Pre-Anesthetic Assessment Pre-Anesthetic Assessment: Height/Weight: Height 1.83 m Weight 105.233 kg Temp Pulse Resp BP Pulse Ox 99.7 F H 66 18 165/103 97 06/27/20 18:36 06/27/20 18:36 06/27/20 18:36 06/27/20 18:36 06/27/20 18:36 Preop Diagnosis: n/v Proposed Procedure: Operation Date: 06/27/20 12:00 Proposed Procedures p EGD with poss biopsy(Not Applicable) - Parish Noyola MD Was Beta Shaunna taken within 24 hours: Yes Last intake: Intake Last Liquid Date 06/26/20 Last Liquid Time 23:30 Social: Social History: No alcohol and No tobacco Exam: Pre-Anes Outpt Exam: alert, oriented x 3, clear to auscultation bilaterally and regular rate & rhythm Airway: Submandibular: WNL Cervical ROM: WNL MP: 2 Dentition: False Additional comments: Full street Pulmonary: Pulmonary: None reported CV/HEM: CV/HEM: CHF and HTN Comments: AICD GI: GI: GERD Musc/skel: Comments: Parkinson's Anesthetic Plan: ASA status: 3 Anesthesia: MAC Risk of > 500 ml blood loss (7ml/kg in children): No Meds/Allergies Current Medications: Current Medications Generic Name Dose Route Start Last Admin Trade Name Richardq PRN Reason Stop Dose Admin Aspirin 81 mg 06/26/20 08:00 06/26/20 07:56 Aspirin 81 Mg Ec Tablet PO 81 mg DAILY@0800 THUY Administration Carbidopa/Levodopa 1.5 each 06/25/20 20:00 06/27/20 17:05 Carbidopa-Levodo pa 25-100mg Tablet PO 1.5 each QID@0800,1200,160 0,2000 THUY Administration Carvedilol 12.5 mg 06/25/20 20:00 06/27/20 08:45 Carvedilol 12.5 Mg Tablet PO 12.5 mg BID@0800,2000 THUY Administration Dextrose 25 ml 06/25/20 17:58 06/27/20 17:23 Dextrose 50% Syr bo 50 Ml IVP 25 ml ONCE PRN Administration hypoglycemia prot ocol Protocol Docusate Sodium 100 mg 06/26/20 09:00 06/27/20 08:44 Docusate Sodium 100 Mg Capsule PO 100 mg DAILY THUY Administration Famotidine 20 mg 06/25/20 18:18 06/27/20 17:06 Famotidine 20 Mg /2 Ml Inj IVP 20 mg Q12H THUY Administration Fluoxetine HCl 40 mg 06/26/20 08:00 06/27/20 08:45 Fluoxetine 20 Mg Capsule PO 40 mg DAILY@0800 THUY Administration Dextrose 500 mls @ 100 mls /hr 06/25/20 17:58 06/27/20 11:50 D5w IV Infused ONCE PRN Infusion Adult Acute Hypog lycemia Prot Protocol Sodium Chloride 1,000 mls @ 75 ml s/hr 06/25/20 18:18 06/27/20 19:07 Sodium Chloride 0.9% IV Infused .[id number] THUY Infusion Insulin Aspart 0 unit 06/25/20 18:00 06/27/20 17:26 Insulin Aspart 1 00 Unit/1 Ml SUBCUT Not Given WM&BEDTIME THUY Protocol Rivastigmine Tartr ate 3 mg 06/25/20 20:00 06/27/20 08:49 Rivastigmine 1.5 Mg Capsule PO 3 mg BID@0800,1999 THUY Administration Tamsulosin HCl 0.4 mg 06/26/20 08:00 06/27/20 08:45 Tamsulosin 0.4 M g Capsule PO 0.4 mg DAILY@0800 THUY Administration PFSH Anesthesia PFSH: Medical History Abnormal colonoscopy Benign polyp removal Diabetes Dyslipidemia Heart failure with reduced ejection fraction Hypertension Parkinsons disease Surgical History AICD (automatic cardioverter/defibrillator) present Family History Father CAD (coronary artery disease) Denies family history of Cancer Social History Smoking and tobacco status: never smoked Alcohol intake: never Lives independently: Yes Housing: House Data Anesthesia CBC & Chem 7: 06/27/20 04:50 06/27/20 04:50 Other Labs: Laboratory Results - last 48 hr 06/25/20 06/26/20 06/26/20 20:33 04:10 04:10 WBC 7.6 RBC 4.38 Hgb 12.1 Hct 37.1 L MCV 84.7 MCH 27.6 L MCHC 32.6 RDW 15.9 H Plt Count 187 MPV 11.2 H Neut % (Auto) 66.1 Lymph % (Auto) 20.7 [place] % (Auto) 11.4 Eos % (Auto) 0.4 Baso % (Auto) 0.5 Neut # (Auto) 4.99 Lymph # (Auto) 1.6 [place] # (Auto) 0.9 Eos # (Auto) 0.0 Baso # (Auto) 0.0 Nucleated RBC % (auto) 0 Nucleated RBCs # 0.0 Sodium 136 Potassium 3.4 L Chloride 99 Carbon Dioxide 24 Anion Gap 16.4 BUN 14 Creatinine 1.4 H GFR Calculation 52.2 L Glucose 105 POC Glucose 106 Calculated Osmolality 283 L Calcium 8.7 Phosphorus 4.2 Magnesium 2.3 Total Bilirubin 0.5 AST 9 ALT < 5 Alkaline Phosphatase 78 Total Protein 6.6 Albumin 3.2 L Globulin 3.4 Random Cortisol 06/26/20 06/26/20 06/26/20 04:10 06:56 10:52 WBC RBC Hgb Hct MCV MCH MCHC RDW Plt Count MPV Neut % (Auto) Lymph % (Auto) [place] % (Auto) Eos % (Auto) Baso % (Auto) Neut # (Auto) Lymph # (Auto) [place] # (Auto) Eos # (Auto) Baso # (Auto) Nucleated RBC % (auto) Nucleated RBCs # Sodium Potassium Chloride Carbon Dioxide Anion Gap BUN Creatinine GFR Calculation Glucose POC Glucose 98 87 Calculated Osmolality Calcium Phosphorus Magnesium Total Bilirubin AST ALT Alkaline Phosphatase Total Protein Albumin Globulin Random Cortisol 16.84 06/26/20 06/26/20 06/27/20 16:57 20:33 04:50 WBC 6.9 RBC 4.17 Hgb 11.7 Hct 36.2 L MCV 86.8 MCH 28.1 MCHC 32.3 RDW 15.9 H Plt Count 166 MPV 11.1 H Neut % (Auto) 67.4 Lymph % (Auto) 20.8 [place] % (Auto) 9.2 Eos % (Auto) 1.5 Baso % (Auto) 0.4 Neut # (Auto) 4.62 Lymph # (Auto) 1.4 [place] # (Auto) 0.6 Eos # (Auto) 0.1 Baso # (Auto) 0.0 Nucleated RBC % (auto) 0 Nucleated RBCs # 0.0 Sodium Potassium Chloride Carbon Dioxide Anion Gap BUN Creatinine GFR Calculation Glucose POC Glucose 89 85 Calculated Osmolality Calcium Phosphorus Magnesium Total Bilirubin AST ALT Alkaline Phosphatase Total Protein Albumin Globulin Random Cortisol 06/27/20 06/27/20 06/27/20 04:50 06:22 10:49 WBC RBC Hgb Hct MCV MCH MCHC RDW Plt Count MPV Neut % (Auto) Lymph % (Auto) [place] % (Auto) Eos % (Auto) Baso % (Auto) Neut # (Auto) Lymph # (Auto) [place] # (Auto) Eos # (Auto) Baso # (Auto) Nucleated RBC % (auto) Nucleated RBCs # Sodium 136 Potassium 3.7 Chloride 101 Carbon Dioxide 26 Anion Gap 12.7 BUN 10 Creatinine 1.1 GFR Calculation 69.0 L Glucose 75 POC Glucose 70 90 Calculated Osmolality 280 L Calcium 8.5 Phosphorus Magnesium 2.0 Total Bilirubin 0.6 AST 9 ALT < 5 Alkaline Phosphatase 82 Total Protein 6.5 L Albumin 3.2 L Globulin 3.3 Random Cortisol 06/27/20 06/27/20 06/27/20 17:13 17:53 18:22 WBC RBC Hgb Hct MCV MCH MCHC RDW Plt Count MPV Neut % (Auto) Lymph % (Auto) [place] % (Auto) Eos % (Auto) Baso % (Auto) Neut # (Auto) Lymph # (Auto) [place] # (Auto) Eos # (Auto) Baso # (Auto) Nucleated RBC % (auto) Nucleated RBCs # Sodium Potassium Chloride Carbon Dioxide Anion Gap BUN Creatinine GFR Calculation Glucose POC Glucose 68 L 115 H 89 Calculated Osmolality Calcium Phosphorus Magnesium Total Bilirubin AST ALT Alkaline Phosphatase Total Protein Albumin Globulin Random Cortisol Cardiac Studies: No Data to Display
--- NOTE | 2020-06-27 20:30 | ANE.PACU2 ---
Inpatient post-anesthesia follow up: Vital signs: Temperature 99.7 F Pulse Rate [Monito r] 98 Pulse Rate 66 Respiratory Rate 18 Blood Pressure [Ri ght Arm] 97/71 Blood Pressure 165/103 Pulse Oximetry 97 Oxygen Delivery Me thod Room Air Oxygen Flow Rate Fraction of Inspir ed Oxygen
--- NOTE | 2020-06-27 20:37 | PM.CONSULT ---
Providers/Reason For Consult Consulting Physican/Specialty*: Steven Ro Reason for Consult*: Nausea and vomiting Attending Physician: Steven Ro History of Present Illness History of Present Illness Kin Lujan is a 55 year old male who presented to the ER on 06/25/2020 with complaints of poor oral intake, nausea and vomiting. Patient denies any abdominal pain fevers, chills. He usually has a bowel movement every [address] abdomen pelvis did not show any acute pathology. Patient has been unable to take any significant amount orally since his admission and therefore I was consulted for possible EGD Review of Systems General: Reports: 10 or more systems reviewed and unremarkable except in HPI and below Meds/Allergies Home Medications and Allergies Home Medications Medication Instructions Recorded Confirmed Last Taken Type carbidopa-levodopa See Rx Instructions .ROUTE .COMPLEX 06/03/20 06/25/20 06/25/20 History carvedilol 12.5 mg PO BID@0800,199906/03/20 06/25/20 06/24/20 History fluoxetine 40 mg PO DAILY@0800 06/03/20 06/25/20 06/24/20 History glipizide 5 mg PO DAILY@0800 06/03/20 06/25/20 06/24/20 History lisinopril 20 mg PO BID@080006/03/20 06/25/20 06/24/20 History rivastigmine tartrate 3 mg PO BID@0800,199906/03/20 06/25/20 06/24/20 History rosuvastatin 20 mg PO DAILY@0800 06/03/20 06/25/20 06/24/20 History ondansetron HCl [Zofran] 4 mg PO Q8H PRN #10 tab 06/04/20 06/25/20 06/24/20 Rx aspirin 81 mg PO DAILY@0800 06/25/20 06/25/20 06/24/20 History pantoprazole 40 mg PO DAILY@0800 06/25/20 06/25/20 06/25/20 History tamsulosin 0.4 mg PO DAILY@0800 06/25/20 06/25/20 06/24/20 History Allergies Allergy/AdvReac Type Severity Reaction Status Date / Time No Known Allergies Allergy Verified 06/03/20 02:13 Current Medications Current Medications Generic Name Dose Route Start Last Admin Trade Name Shana PRN Reason Stop Dose Admin Aspirin 81 mg 06/26/20 08:00 06/26/20 07:56 Aspirin 81 Mg Ec Tablet PO 81 mg DAILY@0800 THUY Administration Carbidopa/Levodopa 1.5 each 06/25/20 20:00 06/27/20 17:05 Carbidopa-Levodopa 25-100mg Tablet PO 1.5 each QID@0800,1200,1600,2000 THUY Administration Carvedilol 12.5 mg 06/25/20 20:00 06/27/20 08:45 Carvedilol 12.5 Mg Tablet PO 12.5 mg BID@08,1999 THUY Administration Dextrose 25 ml 06/25/20 17:58 06/27/20 17:23 Dextrose 50% Syringe 50 Ml IVP 25 ml ONCE PRN Administration hypoglycemia protocol Protocol Docusate Sodium 100 mg 06/26/20 09:00 06/27/20 08:44 Docusate Sodium 100 Mg Capsule PO 100 mg DAILY THUY Administration Famotidine 20 mg 06/25/20 18:18 06/27/20 17:06 Famotidine 20 Mg/2 Ml Inj IVP 20 mg Q12H THUY Administration Fluoxetine HCl 40 mg 06/26/20 08:00 06/27/20 08:45 Fluoxetine 20 Mg Capsule PO 40 mg DAILY@0800 THUY Administration Dextrose 500 mls @ 100 mls/hr 06/25/20 17:58 06/27/20 11:50 D5w IV Infused ONCE PRN Infusion Adult Acute Hypoglycemia Prot Protocol Sodium Chloride 1,000 mls @ 75 mls/hr 06/25/20 18:18 06/27/20 19:07 Sodium Chloride 0.9% IV Infused .[id number] THUY Infusion Insulin Aspart 0 unit 06/25/20 18:00 06/27/20 17:26 Insulin Aspart 100 Unit/1 Ml SUBCUT Not Given WM&BEDTIME THUY Protocol Rivastigmine Tartrate 3 mg 06/25/20 20:00 06/27/20 08:49 Rivastigmine 1.5 Mg Capsule PO 3 mg BID@08,1999 THUY Administration Tamsulosin HCl 0.4 mg 06/26/20 08:00 06/27/20 08:45 Tamsulosin 0.4 Mg Capsule PO 0.4 mg DAILY@0800 THUY Administration PFSH Acute PFSH: Medical History Abnormal colonoscopy Benign polyp removal Diabetes Dyslipidemia Heart failure with reduced ejection fraction Hypertension Parkinsons disease Surgical History AICD (automatic cardioverter/defibrillator) present Family History Father CAD (coronary artery disease) Denies family history of Cancer Social History Smoking and tobacco status: never smoked Alcohol intake: never Lives independently: Yes Housing: House Vitals/I&O/Wt Last Vital Signs Temp 99.7 F H 06/27/20 18:36 Pulse 66 06/27/20 18:36 Resp 18 06/27/20 18:36 BP 165/103 06/27/20 18:36 Pulse Ox 97 06/27/20 18:36 06/27/20 06/27/20 06/27/20 06:59 14:59 22:59 Intake Total 997.5 / 2527.5 1345 / 1994 650 / 1995 Output Total 350 / 1050 150 / 150 Balance 647.5 / 1477.5 1195 / 1845 650 / 1845 Physical Exam Narrative: EXAM NARRATIVE: HEENT: Normocephalic Eye: Sclera /conjunctiva normal Abdomen: Soft to palpation Neurological: Oriented to place person and time Skin: Intact, no lesions appreciated on gross exam A&P Assessment and plan (1) Intractable nausea and vomitin-year-old male with Parkinson's disease, CHF with AICD pacemaker placement who presents for her second hospitalization for poor oral intake and weakness. Patient complains of nausea and vomiting but denies any abdominal pain. CT abdomen pelvis: Nil acute, cholelithiasis Plan for EGD under MAC today Continue PPI If EGD is normal, plan HIDA scan with ejection fraction Status: Acute Coding Level of Care Code Acute [employer] for Chg Fwd Diagnoses Intractable nausea and vomiting R11.2
--- NOTE | 2020-06-27 20:45 | ANE.PACU2 ---
Inpatient post-anesthesia follow up: Airway intact: Yes Vital signs: Temperature 97.5 F Pulse Rate [Monito r] 98 Pulse Rate 76 Respiratory Rate 18 Blood Pressure [Ri ght Arm] 97/71 Blood Pressure 119/86 Pulse Oximetry 99 Oxygen Delivery Me thod Nasal Cannula Oxygen Flow Rate 3 Fraction of Inspir ed Oxygen Hydration adequate: Yes Nausea and vomiting: No Pain level: 2 Mental status: Baseline
--- NOTE | 2020-06-27 21:32 | PC.NURSE ---
Post op Patient arrived back to med surg and is resting in his bed. He is alert and oriented. No complaints of pain and surgery went well. Patient is on clear liquid diet. Continue to monitor.
[2020-06-27 22:19] LABS: Glucose Point of Care 76 mg/dL (70-110)
[2020-06-27] MEDS: prochlorperazine 10 mg Tablet 5 MG PO (23:22)
[2020-06-28] VITALS (8 sets, daily range): BP systolic 141–171; BP diastolic 91–108; PULSE 65–81; RESP 16–21; TEMP 36.4–37; O2SAT 94–99
[2020-06-28] MEDS: metoclopramide oral liquid 5 mg/5 mL (ml) PO (01:32)
[2020-06-28 05:29] LABS: Basophils % 0.3 %; Eosinophils # 0.1 10^3/uL (0.0-0.8); Eosinophils % 1.3 %; Hematocrit 36.5 % (42.0-52.0); Hemoglobin 12.1 g/dL (11.7-16.6); Lymphocytes # 1.2 10^3/uL (0.8-4.8); Lymphocytes % 17.8 %; Mean Corpuscular HGB Conc 33.2 g/dL (30.0-36.0); Mean Corpuscular Hemoglobin 28.2 pg (28.0-34.0); Mean Corpuscular Volume 85.1 fL (80-94); Mean Platelet Volume 11.6 fL (7.4-10.4); Monocytes # 0.7 10^3/uL (0.2-0.9); Monocytes % 9.9 %; Neutrophils # 4.66 10^3/uL (1.8-7.7); Nucleated Red Blood Cells % 0 %; Platelet Count 183 10^3/cmm (130-400); Red Blood Count 4.29 10^6/uL (4.1-5.3); Red Cell Distribution Width 15.9 % (12.1-15.1); White Blood Count 6.7 10^3/uL (4.0-10.0)
--- NOTE | 2020-06-28 05:52 | PC.NURSE ---
Patient became nauseous around 2229. Zofran was given but did not help. Compazine was then given and there still was no relief. Patient threw up clear liquid. Reglan was then given. Patient threw up 2 more times after that. He has had no complaints of pain. He quit drinking fluids and is now on ice chips.
[2020-06-28 05:55] LABS: Alanine Aminotransferase < 5 U/L (0-41); Albumin Level 3.3 g/dL (3.5-5.2); Alkaline Phosphatase 84 IU/L (40-130); Anion Gap 17.4 (5-19); Aspartate Amino Transferase 10 U/L (0-40); Blood Urea Nitrogen 7 mg/dL (6-20); Calcium 8.6 mg/dL (8.5-10.5); Carbon Dioxide 22 mmol/L (22-29); Chloride 100 mmol/L (98-107); Globulin 3.4 g/dL (1.3-4.6); Glucose 72 mg/dL (65-115); Magnesium 1.9 mg/dL (1.7-2.3); Osmolality Calculated 279 mOsm/kg (285-295); Potassium 3.4 mmol/L (3.5-5.1); Sodium 136 mmol/L (136-145); Total Bilirubin 0.7 mg/dL (0.15-1.2); Total Protein 6.7 g/dL (6.6-8.7)
[2020-06-28] MEDS: famotidine 20 mg/2 mL INJ IVP (06:10)
[2020-06-28] MEDS: sodium chloride 0.9% 1,000 ML 75 ML IV ×3 (06:13→20:17)
[2020-06-28 06:36] LABS: Glucose Point of Care 83 mg/dL (70-110)
--- NOTE | 2020-06-28 06:41 | PC.NURSE ---
Patient drank ensure for hida scan later. Notified Raúl in nuc med
[2020-06-28] MEDS: carvedilol 12.5 mg Tablet PO ×2 (09:19→19:33)
[2020-06-28] MEDS: docusate sodium 100 mg Capsule PO (09:19)
[2020-06-28] MEDS: fluoxetine 20 mg Capsule 40 MG PO (09:19)
[2020-06-28] MEDS: carbidopa-levodopa 25-100mg Tablet 1.5 EACH PO ×4 (09:19→19:34)
[2020-06-28] MEDS: aspirin 81 mg EC Tablet PO (09:19)
--- NOTE | 2020-06-28 11:19 | P.PN_ITS ---
Subjective Subjective: Interval history: 55-year-old male with a past medical history significant for Parkinson's disease, chronic systolic heart failure status post AICD / pacemaker placement, hypertension, dyslipidemia, and diabetes mellitus who presented to the hospital with poor p.o. intake. Patient was recently admitted for similar complaints in late May. At that time his symptoms had resolved. Again presented to the hospital however this time stated he has been having intractable nausea vomiting. States he has lost over 30 lb in the last month. noted similar complaints with solids and liquids. Laboratory workup on arrival showed a WBC of 10.6, hemoglobin of 13.8, hematocrit of 41.0 and a platelet count of 300. sodium 133, potassium 3.8, chloride 94, bicarb 23, BUN 13 and creatinine of 1.7. At the time of discharge from previous hospitalization creatinine was 0.9. Hemoglobin A1c of 6.1%. LFTs were within normal limits. Troponin T baseline was 21. proBNP of 357. Lipase of 40. TSH of 4.01. Urinalysis was negative for nitrites and leukocyte esterase. Imaging studies included a chest x-ray which did not show any evidence of acute cardiopulmonary abnormality. CT abdomen pelvis was repeated which showed cholelithiasis, nonobstructing 6 mm left renal calculus. CT head was performed which did not show any evidence of acute intracranial abnormality. Patient was started on IV fluids admitted to the hospital. 06/26 Patient noted nausea, has been NPO since admission. Feels scared to take in oral intake due to recurranc of nausea and vomiting. Can not recall when last EGD was. No fever, or chills. No chest pain, abdominal pain, diarrhea or constipation 06/27 Patient noted a difficult time tolerating CLD yesterday. NPO awaiting EGD today. No urinary complaints. 06/28 Patient was overall unchanged, unable to tolerate oral intake. Unable to perform HIDA. No chest pain, or dyspnea, no fever or chills. Medications: Reviewed: Yes Vitals/I&O/Wt Last Vital Signs Temp 98.6 F 06/28/20 08:00 Pulse 72 06/28/20 08:00 Resp 20 H 06/28/20 08:00 BP 168/102 06/28/20 08:00 Pulse Ox 98 06/28/20 08:00 06/27/20 06/28/20 06/28/20 22:59 06:59 14:59 Intake Total 1050 / 2395 120 / 2515 Output Total 600 / 750 650 / 1400 Balance 450 / 1645 -530 / 1115 Physical Exam Narrative: EXAM NARRATIVE: General : Alert, awake, NAD HEENT : Grossly unremarkable CVS : NSR CHEST : Non-labored respiration ABD: Soft, NT, ND EXT : No edema Data : 06/28/20 04:38 06/28/20 04:38 A&P Assessment and plan (1) Intractable nausea and vomiting: Status: Acute (2) Abnormal weight loss: Status: Acute (3) UTI (urinary tract infection): Status: Acute (4) Benign prostatic hyperplasia with urinary obstruction: Status: Acute (5) Diabetes: Status: Acute (6) Heart failure with reduced ejection fraction: Status: Acute (7) Constipation: Status: Acute Intractable nausea/vomiting - Unable to tolerate oral intake - etiology unclear - Second admission for similar complaint - CT abd/pelvis - Cholelithiasis - S/p EGD on 06/27 - gastritis - Unable to perform HIDA - Will order MRCP today - Continue PPI - General surgery on consult Acute renal failure - Resolved - Creatinine 1.7 -> 1.4 - 1.0 - Repeat BMP in AM - Continue IVF at 75 cc/hr - Renal dosing of meds Hypokalemia - K3.4 - Replaced. Diabetes Mellitus - A1c 6.1% - Sliding scale insulin - QACHS glucose checks Benign Prostatic hyperplasia - Flomax 0.4 mg PO daily - Outpatient urology eval - Monitor u/o - no retention Hypertension - Coreg 12.5 mg PO BID Depression - Prozac 40 mg PO daily Parkinson disease - Early onset? - Sinimet / Exelon 3 mg PO BID GI ppx - Pepcid 20 mg IV BID Disposition: Likely plan to discharge home once able completed diagnostic work up and able to tolerate PO intake. Anticipate additional 2-3day in hospital. Attestations Medical Necessity Statement*: Will continue hospitalization for workup of intractable nausea vomiting. Time Spent in Patient Care: Greater than 35 minutes Coding Level of Care Code Acute Pododermatologist for Chg Fwd Diagnoses Intractable nausea and vomiting R11.2 Abnormal weight loss R63.4 UTI (urinary tract infection) N39.0 Benign prostatic hyperplasia with urinary obstruction N40.1; N13.8 Diabetes E11.9 Heart failure with reduced ejection fraction I50.20 Constipation K59.00
[2020-06-28 12:27] LABS: Glucose Point of Care 100 mg/dL (70-110)
[2020-06-28] MEDS: amlodipine 10 mg Tablet PO (13:20)
[2020-06-28] MEDS: tamsulosin 0.4 mg Capsule PO (13:20)
[2020-06-28] MEDS: potassium chloride ER 20 mEq Tablet PO (13:20)
[2020-06-28 17:30] LABS: Glucose Point of Care 118 mg/dL (70-110)
[2020-06-28] MEDS: pantoprazole DR 40 mg Tablet PO (17:41)
--- NOTE | 2020-06-28 20:42 | NM_ITS ---
WS: [id number] NUCLEAR MEDICINE HIDA SCAN CLINICAL INFORMATION: nausea and vomiting TECHNIQUE: Following intravenous administration of 7.2 mCi of technetium 99m mebrofenin, images of th e abdomen were obtained over the course of 60 minutes. Next, gallbladder ejection fraction was determ ined by obtaining preprandial and one-hour postprandial images of the gallbladder following oral bo stion of Ensure. COMPARISON: CT June 25, 2020 FINDINGS: Hepatomegaly. Asymmetric hepatic uptake more prominent in the left hepatic lobe. Gallbladder is visua lized by 30 minutes. Normal activity in the small bowel. No evidence of acute cholecystitis or choled ocholithiasis. Gallbladder ejection fraction 75% within normal limits. No evidence of chronic cholecystitis. NM/NM hepatobiliary w phar* [id number] IMPRESSION: 1. No evidence of acute or chronic cholecystitis. 2. Gallbladder ejection fraction 75% within normal limits.
[2020-06-28 20:48] LABS: Glucose Point of Care 93 mg/dL (70-110)
[2020-06-29 01:10] VITALS: PULSE 84; O2SAT 98
[2020-06-29 04:00] VITALS: BP 144/94; PULSE 80; RESP 18; TEMP 36.6; O2SAT 99
--- NOTE | 2020-06-29 05:21 | PC.NURSE ---
Patient was able to rest better tonight than the night before. He did not throw up and hasn't been as nauseous. He is NPO besides sips of water and ice chips.
[2020-06-29 05:29] LABS: Basophils % 0.4 %; Eosinophils # 0.1 10^3/uL (0.0-0.8); Eosinophils % 1.8 %; Hematocrit 38.4 % (42.0-52.0); Hemoglobin 12.2 g/dL (11.7-16.6); Lymphocytes # 1.5 10^3/uL (0.8-4.8); Lymphocytes % 21.9 %; Mean Corpuscular HGB Conc 31.8 g/dL (30.0-36.0); Mean Corpuscular Hemoglobin 28.3 pg (28.0-34.0); Mean Corpuscular Volume 89.1 fL (80-94); Mean Platelet Volume 11.8 fL (7.4-10.4); Monocytes # 0.7 10^3/uL (0.2-0.9); Monocytes % 10.2 %; Neutrophils # 4.43 10^3/uL (1.8-7.7); Neutrophils % 64.8 %; Nucleated Red Blood Cells % 0 %; Platelet Count 183 10^3/cmm (130-400); Red Blood Count 4.31 10^6/uL (4.1-5.3); White Blood Count 6.8 10^3/uL (4.0-10.0)
[2020-06-29 06:06] LABS: Alanine Aminotransferase < 5 U/L (0-41); Albumin Level 2.7 g/dL (3.5-5.2); Alkaline Phosphatase 79 IU/L (40-130); Blood Urea Nitrogen 6 mg/dL (6-20); Calcium 8.5 mg/dL (8.5-10.5); Carbon Dioxide 19 mmol/L (22-29); Chloride 102 mmol/L (98-107); Globulin 3.7 g/dL (1.3-4.6); Glomerular Filtration Rate 99.6 mL/min (90-130); Glucose 85 mg/dL (65-115); Osmolality Calculated 275 mOsm/kg (285-295); Sodium 134 mmol/L (136-145); Total Bilirubin 0.8 mg/dL (0.15-1.2); Total Protein 6.4 g/dL (6.6-8.7)
[2020-06-29 06:09] LABS: Anion Gap 17.1 (5-19); Potassium 4.1 mmol/L (3.5-5.1)
[2020-06-29 06:10] LABS: Aspartate Amino Transferase 10 U/L (0-40)
[2020-06-29 06:38] LABS: Glucose Point of Care 77 mg/dL (70-110)
[2020-06-29] MEDS: ondansetron 2 mg/ML SDV 2 mL 4 MG IVP (06:53)
[2020-06-29 07:57] VITALS: BP 143/88; PULSE 67; RESP 16; TEMP 36.3; O2SAT 97
[2020-06-29] MEDS: sodium chloride 0.9% 1,000 ML 75 ML IV (10:49)
[2020-06-29] MEDS: pantoprazole DR 40 mg Tablet PO ×2 (10:55→17:01)
[2020-06-29] MEDS: aspirin 81 mg EC Tablet PO (10:55)
[2020-06-29] MEDS: tamsulosin 0.4 mg Capsule PO (10:55)
[2020-06-29] MEDS: docusate sodium 100 mg Capsule PO (10:55)
[2020-06-29] MEDS: carbidopa-levodopa 25-100mg Tablet 1.5 EACH PO ×4 (10:56→20:59)
[2020-06-29] MEDS: amlodipine 10 mg Tablet PO (10:56)
[2020-06-29] MEDS: carvedilol 12.5 mg Tablet PO ×2 (10:56→20:59)
[2020-06-29] MEDS: fluoxetine 20 mg Capsule 40 MG PO (10:56)
[2020-06-29] MEDS: prochlorperazine 10 mg Tablet 5 MG PO (11:38)
--- NOTE | 2020-06-29 11:38 | P.PN_ITS ---
Subjective Subjective: Interval history: 55-year-old male with a past medical history significant for Parkinson's disease, chronic systolic heart failure status post AICD / pacemaker placement, hypertension, dyslipidemia, and diabetes mellitus who presented to the hospital with poor p.o. intake. Patient was recently admitted for similar complaints in late May. At that time his symptoms had resolved. Again presented to the hospital however this time stated he has been having intractable nausea vomiting. States he has lost over 30 lb in the last month. noted similar complaints with solids and liquids. Laboratory workup on arrival showed a WBC of 10.6, hemoglobin of 13.8, hematocrit of 41.0 and a platelet count of 300. sodium 133, potassium 3.8, chloride 94, bicarb 23, BUN 13 and creatinine of 1.7. At the time of discharge from previous hospitalization creatinine was 0.9. Hemoglobin A1c of 6.1%. LFTs were within normal limits. Troponin T baseline was 21. proBNP of 357. Lipase of 40. TSH of 4.01. Urinalysis was negative for nitrites and leukocyte esterase. Imaging studies included a chest x-ray which did not show any evidence of acute cardiopulmonary abnormality. CT abdomen pelvis was repeated which showed cholelithiasis, nonobstructing 6 mm left renal calculus. CT head was performed which did not show any evidence of acute intracranial abnormality. Patient was started on IV fluids admitted to the hospital. 06/26 Patient noted nausea, has been NPO since admission. Feels scared to take in oral intake due to recurranc of nausea and vomiting. Can not recall when last EGD was. No fever, or chills. No chest pain, abdominal pain, diarrhea or constipation 06/27 Patient noted a difficult time tolerating CLD yesterday. NPO awaiting EGD today. No urinary complaints. 06/28 Patient was overall unchanged, unable to tolerate oral intake. Unable to perform HIDA. No chest pain, or dyspnea, no fever or chills. 06/29 No new clinical events overnight. No fever chills. No nausea vomiting. No chest pain or shortness of breath. Medications: Reviewed: Yes Vitals/I&O/Wt Last Vital Signs Temp 97.4 F L 06/29/20 07:57 Pulse 67 06/29/20 07:57 Resp 16 06/29/20 07:57 BP 143/88 06/29/20 07:57 Pulse Ox 97 01/14/21 07:57 06/28/20 06/29/20 06/29/20 22:59 06:59 14:59 Intake Total 505 / 1055 1000 / 1000 Output Total 625 / 625 500 / 1125 300 / 300 Balance -120 / 430 -500 / -70 700 / 700 Physical Exam Narrative: EXAM NARRATIVE: General : Alert, awake, NAD HEENT : Grossly unremarkable CVS : NSR CHEST : Non-labored respiration ABD: Soft, NT, ND EXT : No edema Data : 06/29/20 04:42 06/29/20 04:42 A&P Assessment and plan (1) Intractable nausea and vomiting: Status: Acute (2) Abnormal weight loss: Status: Acute (3) UTI (urinary tract infection): Status: Acute (4) Benign prostatic hyperplasia with urinary obstruction: Status: Acute (5) Diabetes: Status: Acute (6) Heart failure with reduced ejection fraction: Status: Acute (7) Constipation: Status: Acute Intractable nausea/vomiting - Unable to tolerate oral intake - etiology unclear - Second admission for similar complaint - CT abd/pelvis - Cholelithiasis - S/p EGD on 06/27 - gastritis - HIDA - WNL - Gastric emptying study in AM - Full liquid diet - advance as tolerated - Reglan 10 mg PO AC today due to possible gastroparesis - Continue PPI - General surgery on consult Acute renal failure - Resolved - Creatinine 1.7 -> 1.4 - 1.0 - Repeat BMP in AM - Continue IVF at 75 cc/hr - Renal dosing of meds Hypokalemia - K3.4 - Replaced. - WNL today Diabetes Mellitus - A1c 6.1% - Sliding scale insulin - QACHS glucose checks Benign Prostatic hyperplasia - Flomax 0.4 mg PO daily - Outpatient urology eval - Monitor u/o - no retention Hypertension - Coreg 12.5 mg PO BID Depression - Prozac 40 mg PO daily Parkinson disease - Sinimet / Exelon 3 mg PO BID GI ppx - Protonix DVT ppx - Will start Heparin 5000 BID Disposition: Likely plan to discharge home once able completed diagnostic work up and able to tolerate PO intake. Anticipate additional 1-2 in hospital. Attestations Medical Necessity Statement*: Require further hospitalization for management of intractable nausea vomiting. Time Spent in Patient Care: Greater than 35 minutes (>than 50% of time spent in counselling and/or direct pt care on unit) . Coding Level of Care Code Acute Vehicle Delivery Worker for Chg Fwd Diagnoses Intractable nausea and vomiting R11.2 Abnormal weight loss R63.4 UTI (urinary tract infection) N39.0 Benign prostatic hyperplasia with urinary obstruction N40.1; N13.8 Diabetes E11.9 Heart failure with reduced ejection fraction I50.20 Constipation K59.00
[2020-06-29 11:43] LABS: Glucose Point of Care 75 mg/dL (70-110)
[2020-06-29 11:47] VITALS: BP 139/91; PULSE 76; RESP 16; TEMP 36.5; O2SAT 97
[2020-06-29] MEDS: metoclopramide oral liquid 5 mg/5 mL (ml) 10 MG PO ×3 (11:58→20:58)
--- NOTE | 2020-06-29 14:53 | P.PN_ITS ---
Subjective Subjective: Interval history: Patient still continues to have nausea, no significant oral intake, denies any abdominal pain. He is due for a gastric emptying study tomorrow Vitals/I&O/Wt Last Vital Signs Temp 97.7 F 06/29/20 11:47 Pulse 76 06/29/20 11:47 Resp 16 06/29/20 11:47 BP 139/91 06/29/20 11:47 Pulse Ox 97 06/29/20 11:47 06/28/20 06/29/20 06/29/20 22:59 06:59 14:59 Intake Total 505 / 1055 1000 / 1000 Output Total 625 / 1125 500 / 1125 300 / 300 Balance -120 / -70 -500 / -70 700 / 700 Physical Exam Narrative: EXAM NARRATIVE: Abdomen: Soft, nondistended, nontender Data : 06/29/20 04:42 06/29/20 04:42 A&P Assessment and plan (1) Intractable nausea and vomitin-year-old male with Parkinson's disease, CHF with AICD pacemaker placement who presents for her second hospitalization for poor oral intake and w eakness. Patient complains of nausea and vomiting but denies any abdominal pain. CT abdomen pelvis: Nil acute, cholelithiasis EGD: Mild nonerosive gastritis Continue PPI HIDA scan: Normal Discussed with the patient that until now in spite of the extensive work-up the only significant pathology has been cholelithiasis. Will try to rule out other causes for nausea /vomiting but eventually we might have to consider cholecystectomy as a last resort Status: Acute Attestations Medical Necessity Statement*: Persistent nausea and vomiting requiring continued inpatient stay for further work-up Coding Level of Care Code Acute Burial Vault Maker for [facility] Fwd Diagnoses Intractable nausea and vomiting R11.2
[2020-06-29 15:15] VITALS: BP 125/86; PULSE 77; RESP 16; TEMP 36.6; O2SAT 95
[2020-06-29 16:58] LABS: Glucose Point of Care 83 mg/dL (70-110)
[2020-06-29] MEDS: heparin 5,000 unit/mL INJ 1 mL 5000 UNIT SUBCUT ×2 (17:01→23:19)
[2020-06-29 20:00] VITALS: BP 149/97; PULSE 72; RESP 18; TEMP 36.6; O2SAT 96
[2020-06-29 21:12] LABS: Glucose Point of Care 80 mg/dL (70-110)
[2020-06-30] VITALS: BP 128/85; PULSE 68; RESP 18; TEMP 36.6; O2SAT 95
[2020-06-30] MEDS: sodium chloride 0.9% 1,000 ML 75 ML IV ×2 (01:03→20:03)
[2020-06-30] MEDS: ondansetron 2 mg/ML SDV 2 mL 4 MG IVP (02:49)
[2020-06-30 04:00] VITALS: BP 145/91; PULSE 74; RESP 18; TEMP 36.7; O2SAT 95
[2020-06-30] MEDS: metoclopramide oral liquid 5 mg/5 mL (ml) 10 MG PO ×3 (06:01→20:00)
[2020-06-30 06:09] LABS: Basophils % 0.3 %; Eosinophils # 0.1 10^3/uL (0.0-0.8); Eosinophils % 1.9 %; Hematocrit 35.3 % (42.0-52.0); Hemoglobin 11.5 g/dL (11.7-16.6); Lymphocytes # 1.3 10^3/uL (0.8-4.8); Lymphocytes % 20.6 %; Mean Corpuscular HGB Conc 32.6 g/dL (30.0-36.0); Mean Corpuscular Hemoglobin 27.8 pg (28.0-34.0); Mean Corpuscular Volume 85.3 fL (80-94); Mean Platelet Volume 11.9 fL (7.4-10.4); Monocytes # 0.6 10^3/uL (0.2-0.9); Monocytes % 9.5 %; Neutrophils # 4.21 10^3/uL (1.8-7.7); Neutrophils % 66.9 %; Nucleated Red Blood Cells % 0 %; Platelet Count 167 10^3/cmm (130-400); Red Blood Count 4.14 10^6/uL (4.1-5.3); Red Cell Distribution Width 15.9 % (12.1-15.1); White Blood Count 6.3 10^3/uL (4.0-10.0)
[2020-06-30 06:13] LABS: Glucose Point of Care 80 mg/dL (70-110)
[2020-06-30 06:27] LABS: Alanine Aminotransferase < 5 U/L (0-41); Albumin Level 2.9 g/dL (3.5-5.2); Alkaline Phosphatase 81 IU/L (40-130); Anion Gap 15.5 (5-19); Aspartate Amino Transferase 10 U/L (0-40); Blood Urea Nitrogen 7 mg/dL (6-20); Calcium 8.3 mg/dL (8.5-10.5); Carbon Dioxide 21 mmol/L (22-29); Chloride 100 mmol/L (98-107); Globulin 3.4 g/dL (1.3-4.6); Glomerular Filtration Rate 99.6 mL/min (90-130); Glucose 81 mg/dL (65-115); Osmolality Calculated 273 mOsm/kg (285-295); Potassium 3.5 mmol/L (3.5-5.1); Sodium 133 mmol/L (136-145); Total Bilirubin 0.8 mg/dL (0.15-1.2); Total Protein 6.3 g/dL (6.6-8.7)
[2020-06-30 07:32] VITALS: BP 137/92; PULSE 69; RESP 17; TEMP 36.8; O2SAT 94
--- NOTE | 2020-06-30 11:31 | PC.CHAP ---
Pastoral Care Encounter/Spiritual Assessment Type of Contact [xx] Declined supervisor cytogenetic laboratory visit [] Patient/Family/Request visit [] Outpatient visit [xx] Follow-up visit [] Physician referral [] Code/Alert [xx] Routine visit [] Staff referral [] Actively dying [] Patient sleeping [] Family support [] [] Out of room [] Palliative care [] [] Receiving care in room [] Pre-surgical visit [] Trauma [xx] Long length of stay [] ICU visit [] Other: Relational/Emotional Strength [] Patient feels connected with others/family/visitors/staff [] Distress [] Loneliness/isolation [] Abandonment Spirituality of Patient [] Person of Katerina [] Attends Restoration of their Katerina [] Believes in Prayer [] Reads Bible or Hinduism materials [] There are Spiritual issues to be addressed Supervisor [employer] Interventions [] Prayer [] Active listening [] Non-anxious presence [] Spiritual/emotional support [] Crisis/trauma care [] Spiritual counseling [] Bereavement support [] Provided bereavement packet [] Provided Bible/devotional materials [] Provided toy/stuffed animal, coloring book to patient or family member [] Provided Communion [] Anointing/[place] [] Salvation [] Completed spiritual assessment [] Other: Impact on Illness or Injury [] Angry [] Fearful [] Anxious [] Often cries [] Exhaustion [] Unable to work [] Unable to attend baptism [] Unable to walk/stand [] Unable to read [] Unable to drive [] Unable to eat/drink [] Unable to sleep [] Unable to be with family [] Patient intubated [] Other: Summary Patient declined prayer and visit from female supervisor cytogenetic laboratory. Time spent with patient 2 minutes
[2020-06-30 11:45] LABS: Glucose Point of Care 75 mg/dL (70-110)
[2020-06-30 11:51] VITALS: BP 136/91; PULSE 77; RESP 16; TEMP 36.7; O2SAT 95
--- NOTE | 2020-06-30 13:15 | P.PN_ITS ---
Subjective Subjective: Interval history: 55-year-old male with a past medical history significant for Parkinson's disease, chronic systolic heart failure status post AICD / pacemaker placement, hypertension, dyslipidemia, and diabetes mellitus who presented to the hospital with poor p.o. intake. Patient was recently admitted for similar complaints in late May. At that time his symptoms had resolved. Again presented to the hospital however this time stated he has been having intractable nausea vomiting. States he has lost over 30 lb in the last month. noted similar complaints with solids and liquids. Laboratory workup on arrival showed a WBC of 10.6, hemoglobin of 13.8, hematocrit of 41.0 and a platelet count of 300. sodium 133, potassium 3.8, chloride 94, bicarb 23, BUN 13 and creatinine of 1.7. At the time of discharge from previous hospitalization creatinine was 0.9. Hemoglobin A1c of 6.1%. LFTs were within normal limits. Troponin T baseline was 21. proBNP of 357. Lipase of 40. TSH of 4.01. Urinalysis was negative for nitrites and leukocyte esterase. Imaging studies included a chest x-ray which did not show any evidence of acute cardiopulmonary abnormality. CT abdomen pelvis was repeated which showed cholelithiasis, nonobstructing 6 mm left renal calculus. CT head was performed which did not show any evidence of acute intracranial abnormality. Patient was started on IV fluids admitted to the hospital. 06/26 Patient noted nausea, has been NPO since admission. Feels scared to take in oral intake due to recurranc of nausea and vomiting. Can not recall when last EGD was. No fever, or chills. No chest pain, abdominal pain, diarrhea or constipation 06/27 Patient noted a difficult time tolerating CLD yesterday. NPO awaiting EGD today. No urinary complaints. 06/28 Patient was overall unchanged, unable to tolerate oral intake. Unable to perform HIDA. No chest pain, or dyspnea, no fever or chills. 06/29 No new clinical events overnight. No fever chills. No nausea vomiting. No chest pain or shortness of breath. 06/30 Patient was again not able to tolerate any PO intake yesterday despite scheduled reglan. Awaiting gastric emptying study later today. No fever, chill, nausea or vomiting. Medications: Reviewed: Yes Vitals/I&O/Wt Last Vital Signs Temp 98.1 F 06/30/20 11:51 Pulse 77 06/30/20 11:51 Resp 16 06/30/20 11:51 BP 136/91 06/30/20 11:51 Pulse Ox 95 06/30/20 11:51 06/29/20 06/30/20 06/30/20 22:59 06:59 14:59 Intake Total 1000 / 2000 Output Total 220 / 520 600 / 1120 Balance -220 / 480 400 / 880 Physical Exam Narrative: EXAM NARRATIVE: General : Alert, awake, NAD HEENT : Grossly unremarkable CVS : NSR CHEST : Non-labored respiration ABD: Soft, NT, ND EXT : No edema Data : 06/30/20 05:33 06/30/20 05:33 A&P Assessment and plan (1) Intractable nausea and vomiting: Status: Acute (2) Abnormal weight loss: Status: Acute (3) UTI (urinary tract infection): Status: Acute (4) Benign prostatic hyperplasia with urinary obstruction: Status: Acute (5) Diabetes: Status: Acute (6) Heart failure with reduced ejection fraction: Status: Acute (7) Constipation: Status: Acute Intractable nausea/vomiting - Second admission for similar complaint - CT abd/pelvis - Cholelithiasis - S/p EGD on 06/27 - gastritis - HIDA - WNL - Gastric emptying study today - Full liquid diet - advance as tolerated after study today - Reglan 10 mg PO AC today due to possible gastroparesis - Zofran 4 mg PO AC as well - Suspect patients symptoms could be related to exelon and also sinemet - Will hold both for now. Once tolerating oral intake will resume sinemet with meals - Can consider changing to exelon patch in further if needed ( not noted to have dementia however) - Continue PPI - General surgery on consult Acute renal failure - Resolved - Creatinine 1.7 -> 1.4 - 1.0 - Repeat BMP in AM - Continue IVF at 75 cc/hr - Renal dosing of meds Hypokalemia - K3.4 - Replaced. - WNL today Diabetes Mellitus - A1c 6.1% - Sliding scale insulin - QACHS glucose checks Benign Prostatic hyperplasia - Flomax 0.4 mg PO daily - Outpatient urology eval - Monitor u/o - no retention Hypertension - Coreg 12.5 mg PO BID Depression - Prozac 40 mg PO daily Parkinson disease - Sinimet / Exelon 3 mg PO BID - on hold due to intractable nausea/vomting GI ppx - Protonix DVT ppx - Heparin Attestations Medical Necessity Statement*: Continue work up for intractable nausea/vomiting in hospital. Anticipate additional day in hospital Time Spent in Patient Care: Greater than 35 minutes (>than 50% of time spent in counselling and/or direct pt care on unit) . Coding Level of Care Code Acute Regional Driver for [facility] Fwd Diagnoses Intractable nausea and vomiting R11.2 Abnormal weight loss R63.4 UTI (urinary tract infection) N39.0 Benign prostatic hyperplasia with urinary obstruction N40.1; N13.8 Diabetes E11.9 Heart failure with reduced ejection fraction I50.20 Constipation K59.00
--- NOTE | 2020-06-30 13:26 | NM_ITS ---
WS: [id number] NUCLEAR MEDICINE GASTRIC STUDY CLINICAL INFORMATION: gastritis TECHNIQUE: Following oral ingestion of cooked egg mixed with 1.1 mCi technetium 99m sulfur colloid, a nterior images of the stomach were obtained over the course of 90 minutes. Activity curve was perform ed over the course of 90 minutes with linear regression analysis. COMPARISON: None. FINDINGS: Gastric activity is visualized on the initial immediate imaging after ingestion of cooked egg mixture . Small bowel activity is visualized by 15 minutes. T1 half is 77.15 minutes. 50% emptying at 77 minutes 59% emptying at 91 minutes. [place] [address] IMPRESSION: 50% gastric emptying at 77 minutes within normal limits. *Normal median T1 half 90 minutes for solid egg meal (45-110 minutes). Delayed gastric retention is defined as 90% retained at 1 hour, 60% at 2 hour s, 30% at 3 hours, and 10% at 4 hours (normal percent gastric retention is 37-9 0% at 1 hour, 30-60% at 2 hours, and 0-10% at 4 hours).
[2020-06-30 15:41] VITALS: BP 156/98; PULSE 82; RESP 16; TEMP 36.8; O2SAT 98
[2020-06-30] MEDS: heparin 5,000 unit/mL INJ 1 mL 5000 UNIT SUBCUT (16:20)
[2020-06-30] MEDS: pantoprazole DR 40 mg Tablet PO (16:23)
[2020-06-30] MEDS: ondansetron 4 MG Tablet PO (16:23)
[2020-06-30 17:03] LABS: Glucose Point of Care 94 mg/dL (70-110)
--- NOTE | 2020-06-30 17:50 | P.PN_ITS ---
Subjective Subjective: Interval history: Patient actually feels better after being started on Reglan, denies any nausea or vomiting and was able to keep the eggs down during gastric emptying study which was eventually normal Vitals/I&O/Wt Last Vital Signs Temp 98.2 F 06/30/20 15:41 Pulse 82 06/30/20 15:41 Resp 16 06/30/20 15:41 BP 156/98 06/30/20 15:41 Pulse Ox 98 06/30/20 15:41 06/30/20 06/30/20 06/30/20 06:59 14:59 22:59 Intake Total 1000 / 2000 Output Total 600 / 1120 Balance 400 / 880 Physical Exam Narrative: EXAM NARRATIVE: Abdomen : soft Data : 06/30/20 05:33 06/30/20 05:33 A&P Assessment and plan (1) Intractable nausea and vomitin-year-old male with Parkinson's disease, CHF with AICD pacemaker placement who presents for her second hospitalization for poor oral intake and weakness. Patient complains of nausea and vomiting but denies any abdominal pain. CT abdomen pelvis: Nil acute, cholelithiasis EGD: Mild nonerosive gastritis Continue PPI HIDA: Normal Gastric emptying study: Normal Patient has noticed improvement after being started on Reglan 10 mg p.o. 3 times daily, he could potentially be discharged home on that regimen along with other antinausea medications tomorrow Status: Acute Attestations Medical Necessity Statement*: Nausea and vomiting requiring 1 more night of inpatient stay Coding Level of Care Code Acute Surface Ship Usw Supervisor for [facility] Diagnoses Intractable nausea and vomiting R11.2
[2020-06-30 20:00] VITALS: BP 146/95; PULSE 76; RESP 18; TEMP 37.1; O2SAT 99
[2020-06-30] MEDS: carvedilol 12.5 mg Tablet PO (20:00)
[2020-06-30 21:45] LABS: Glucose Point of Care 99 mg/dL (70-110)
[2020-07-01] VITALS: PULSE 84; RESP 18; TEMP 37.3; O2SAT 98
[2020-07-01] MEDS: heparin 5,000 unit/mL INJ 1 mL 5000 UNIT SUBCUT (03:32)
[2020-07-01 04:00] VITALS: BP 176/115; PULSE 82; RESP 18; TEMP 37.3; O2SAT 97
[2020-07-01] MEDS: lisinopril 10 mg Tablet PO (05:43)
[2020-07-01 06:13] LABS: Basophils % 0.4 %; Eosinophils # 0.1 10^3/uL (0.0-0.8); Eosinophils % 1.2 %; Hematocrit 37.9 % (42.0-52.0); Hemoglobin 12.3 g/dL (11.7-16.6); Lymphocytes # 1.6 10^3/uL (0.8-4.8); Lymphocytes % 21.1 %; Mean Corpuscular HGB Conc 32.5 g/dL (30.0-36.0); Mean Corpuscular Volume 86.3 fL (80-94); Monocytes # 0.6 10^3/uL (0.2-0.9); Monocytes % 8.6 %; Neutrophils # 4.96 10^3/uL (1.8-7.7); Neutrophils % 67.7 %; Nucleated Red Blood Cells % 0 %; Platelet Count 229 10^3/cmm (130-400); Red Blood Count 4.39 10^6/uL (4.1-5.3); Red Cell Distribution Width 16.1 % (12.1-15.1); White Blood Count 7.3 10^3/uL (4.0-10.0)
[2020-07-01 06:36] LABS: Alanine Aminotransferase < 5 U/L (0-41); Albumin Level 3.7 g/dL (3.5-5.2); Alkaline Phosphatase 97 IU/L (40-130); Anion Gap 15.8 (5-19); Aspartate Amino Transferase 12 U/L (0-40); Blood Urea Nitrogen 7 mg/dL (6-20); Calcium 8.7 mg/dL (8.5-10.5); Carbon Dioxide 23 mmol/L (22-29); Chloride 100 mmol/L (98-107); Globulin 3.4 g/dL (1.3-4.6); Glomerular Filtration Rate 99.6 mL/min (90-130); Glucose 104 mg/dL (65-115); Osmolality Calculated 278 mOsm/kg (285-295); Potassium 3.8 mmol/L (3.5-5.1); Sodium 135 mmol/L (136-145); Total Bilirubin 0.8 mg/dL (0.15-1.2); Total Protein 7.1 g/dL (6.6-8.7)
[2020-07-01] MEDS: metoclopramide oral liquid 5 mg/5 mL (ml) 10 MG PO ×2 (06:36→12:17)
[2020-07-01] MEDS: ondansetron 4 MG Tablet PO ×2 (06:37→12:16)
[2020-07-01 07:29] LABS: Glucose Point of Care 97 mg/dL (70-110)
[2020-07-01 08:00] VITALS: BP 151/105; PULSE 98; RESP 18; TEMP 37.1; O2SAT 98
[2020-07-01] MEDS: sodium chloride 0.9% 1,000 ML 75 ML IV (10:06)
[2020-07-01] MEDS: pantoprazole DR 40 mg Tablet PO (10:07)
[2020-07-01] MEDS: aspirin 81 mg EC Tablet PO (10:07)
[2020-07-01] MEDS: tamsulosin 0.4 mg Capsule PO (10:07)
[2020-07-01] MEDS: carvedilol 12.5 mg Tablet PO (10:07)
[2020-07-01] MEDS: fluoxetine 20 mg Capsule 40 MG PO (10:07)
[2020-07-01] MEDS: amlodipine 10 mg Tablet PO (10:07)
[2020-07-01] MEDS: docusate sodium 100 mg Capsule PO (10:08)
[2020-07-01 10:50] LABS: Glucose Point of Care 105 mg/dL (70-110)
[2020-07-01 12:00] VITALS: BP 124/84; PULSE 83; RESP 18; TEMP 37.1; O2SAT 96
[2020-07-01 13:32] VITALS: BP 124/84; PULSE 83; RESP 18; TEMP 37.1; O2SAT 96
--- NOTE | 2020-07-01 17:17 | P.DS_ITS ---
Discharge Providers Date of Admission: 06/25/20 17:13 Date of Discharge: July 01, 2020 Attending Provider at Admission: Christal Masterson MD Attending Provider at Discharge: Steven Ro Diagnoses at Discharge Discharge Diagnosis (1) Intractable nausea and vomiting: Status: Acute Reason for Visit Reason for Visit: Dehydarted/unable to eat or drink Hospital Course Hospital Course 55-year-old male with a past medical history significant for Parkinson's disease, chronic systolic heart failure status post AICD / pacemaker placement, hypertension, dyslipidemia, and diabetes mellitus who presented to the hospital with poor p.o. intake. Patient was recently admitted for similar complaints in late May. At that time his symptoms had resolved. Again presented to the hospital however this time stated he has been having intractable nausea vomiting. States he has lost over 30 lb in the last month. noted similar complaints with solids and liquids. Laboratory workup on arrival showed a WBC of 10.6, hemoglobin of 13.8, hematocrit of 41.0 and a platelet count of 300. sodium 133, potassium 3.8, chloride 94, bicarb 23, BUN 13 and creatinine of 1.7. At the time of discharge from previous hospitalization creatinine was 0.9. Hemoglobin A1c of 6.1%. LFTs were within normal limits. Troponin T baseline was 21. proBNP of 357. Lipase of 40. TSH of 4.01. Urinalysis was negative for nitrites and leukocyte esterase. Imaging studies included a chest x-ray which did not show any evidence of acute cardiopulmonary abnormality. CT abdomen pelvis was repeated which showed cholelithiasis, nonobstructing 6 mm left renal calculus. CT head was performed which did not show any evidence of acute intracranial abnormality. Patient was started on IV fluids admitted to the hospital. upon admission patient was seen by General surgery. He was taken for EGD which did not show any significant findings to explain symptoms. Subsequently had a gastric emptying study done which was normal. It was felt that his symptoms may be related to his medications. Exelon was discontinued. Sinemet was briefly held however resume prior to discharge. Patient's symptoms had significantly improved and he was able to tolerate oral intake. Physical Exam Narrative: EXAM NARRATIVE: General : Alert, awake, NAD HEENT : Grossly unremarkable CVS : NSR CHEST : Non-labored respiration ABD: Soft, NT, ND EXT : No edema Discharge Data Data Completed and Pending: Completed Studies During Hospitalization Category Date Time Status CT abdomen pelvis wo con [id number] Urge nt Cat Scan 06/25/20 12:[address] head wo con* 7 [id number] Urgent Cat Scan 06/25/20 18:18 Completed XR chest 1V levi ble [id number] Stat Exams 06/25/20 10:43 [place] [id number] Routin e Nuc Med 06/30/20 13:26 Completed NM hepatobiliary w phar* [id number] Rout ine Nuc Med 06/28/20 20:42 Completed Pending at discharge Category Date Time Status Pathology: Surgic al [PTH] Routine Pth 06/27/20 20:23 Received Labs from last 24 hours 07/01/20 07/01/20 07/01/20 10:39 06:54 05:50 WBC RBC Hgb Hct MCV MCH MCHC RDW Plt Count MPV Neut % (Auto) Lymph % (Auto) Winn % (Auto) Eos % (Auto) Baso % (Auto) Neut # (Auto) Lymph # (Auto) Winn # (Auto) Eos # (Auto) Baso # (Auto) Nucleated RBC % (a uto) Nucleated RBCs # Sodium 135 L Potassium 3.8 Chloride 100 Carbon Dioxide 23 Anion Gap 15.8 BUN 7 Creatinine 0.8 GFR Calculation 99.6 Glucose 104 POC Glucose 105 97 Calculated Osmolal ity 278 L Calcium 8.7 Total Bilirubin 0.8 AST 12 ALT < 5 Alkaline Phosphata se 97 Total Protein 7.1 Albumin 3.7 Globulin 3.4 07/01/20 06/30/20 05:50 21:16 WBC 7.3 RBC 4.39 Hgb 12.3 Hct 37.9 L MCV 86.3 MCH 28.0 MCHC 32.5 RDW 16.1 H Plt Count 229 MPV 11.0 H Neut % (Auto) 67.7 Lymph % (Auto) 21.1 Winn % (Auto) 8.6 Eos % (Auto) 1.2 Baso % (Auto) 0.4 Neut # (Auto) 4.96 Lymph # (Auto) 1.6 Winn # (Auto) 0.6 Eos # (Auto) 0.1 Baso # (Auto) 0.0 Nucleated RBC % (a uto) 0 Nucleated RBCs # 0.0 Sodium Potassium Chloride Carbon Dioxide Anion Gap BUN Creatinine GFR Calculation Glucose POC Glucose 99 Calculated Osmolal ity Calcium Total Bilirubin AST ALT Alkaline Phosphata se Total Protein Albumin Globulin Vitals: Last Vital Signs Temp 98.7 F 07/01/20 13:32 Pulse 83 07/01/20 13:32 Resp 18 07/01/20 13:32 BP 124/84 07/01/20 13:32 Pulse Ox 96 07/01/20 13:32 Discharge Plan Discharge Patient Disposition: Home Condition: Stable Prescriptions: New amlodipine 10 mg Tablet 10 mg PO DAILY Qty: 30 RF: 0 lisinopril 10 mg Tablet 10 mg PO BID@08,1999 Qty: 30 RF: 0 Continued fluoxetine 40 mg capsule 40 mg PO DAILY@0800 RF: 0 carbidopa-levodopa 25-100 mg tablet See Rx Instructions .ROUTE .COMPLEX RF: 0 carvedilol 12.5 mg tablet 12.5 mg PO BID@799,1999 RF: 0 glipizide 5 mg tablet 5 mg PO DAILY@0800 RF: 0 rosuvastatin 20 mg tablet 20 mg PO DAILY@0800 RF: 0 ondansetron HCl [Zofran] 4 mg tablet 4 mg PO Q8H PRN (Reason: nausea and vomiting) Qty: 10 RF: 0 aspirin 81 mg tablet,delayed release (DR/EC) 81 mg PO DAILY@0800 RF: 0 tamsulosin 0.4 mg capsule 0.4 mg PO DAILY@0800 RF: 0 pantoprazole 40 mg tablet,delayed release (DR/EC) 40 mg PO DAILY@0800 RF: 0 Discontinued lisinopril 20 mg tablet 20 mg PO BID@799,1999 RF: 0 rivastigmine tartrate 1.5 mg capsule 3 mg PO BID@ RF: 0 Discharge Orders: Discharge Order (Routine); Ordered 07/01/20 Ordered By: Steven Ro Referrals: Parish Noyola MD [Physician] - 1-3 days ([facility] will call you Friday with an appontment to see Dr. Noyola.) Discharge Diet: Usual diet Discharge Activity: Resume usual activity Patient Instructions: Constipation - Adult, Type 2 Diabetes, Diabetes and Diet, Lisinopril (By mouth), Amlodipine (By mouth), Heart Failure (DC), Benign Prostatic Hypertrophy (DC), Urinary Tract Infection in Men (DC), CHF Stoplight Activity Restrictions/Additional Instructions: Return to hospital if any recurrence of nausea or vomiting. Discharge Attestations Time Spent in Discharge Care*: greater than 30 min Specific Discharge Activities: educating patient, educating and/or supporting family/caregiver, discussing with pcp/other providers, discussing with watch caser/social workers/dc planners, documenting/other paperwork and evaluating patient/reviewing data Status at Discharge: Cognitive status at discharge: cognitively intact , Behavioral status at discharge: cooperative , Functional status at discharge: independent ambulation Overall status at discharge: patient is progressing back to baseline Quality Metrics Clinical Quality Measures During this hospital stay, did patient experience: None Coding Level of Care Code Acute Head Of Sales And Marketing for [facility] Fwd Diagnoses Intractable nausea and vomiting R11.2
== END 2020-07-01 13:55 | disposition home or self-care (01) | DRG 683 ==
LOC: ER 17:28 → MEDSURG 17:42
PROVIDERS: Family Medicine; Surgery; Admitting Provider Internal Medicine; Emergency Provider Physician Assistant; Visit Provider Hospitalist
PROC: 0DJ08ZZ Inspection of Upper Intestinal Tract, Via Natural or Artificial Opening Endoscopic (ICD-10-PCS; CPT 43235; principal; 2020-06-27 12:00)
DX: N17.9 Acute kidney failure, unspecified (principal); N39.0 Urinary tract infection, site not specified; I50.22 Chronic systolic (congestive) heart failure; N13.8 Other obstructive and reflux uropathy; E86.0 Dehydration; I11.0 Hypertensive heart disease with heart failure; K59.00 Constipation, unspecified; E11.9 Type 2 diabetes mellitus without complications; N40.1 Benign prostatic hyperplasia with lower urinary tract symptoms; R63.4 Abnormal weight loss; Z68.31 Body mass index [BMI] 31.0-31.9, adult; G20 Parkinson's disease; Z95.0 Presence of cardiac pacemaker; E78.5 Hyperlipidemia, unspecified; Z79.82 Long term (current) use of aspirin; K80.20 Calculus of gallbladder without cholecystitis without obstruction; N20.0 Calculus of kidney; E87.6 Hypokalemia; F32.9 Major depressive disorder, single episode, unspecified
CPT/HCPCS: 12345; 36415; 36416; 43239; 51701; 70450; 71045; 74176; 78227; 78264; 80053; 80306; 81001; 82533; 82962; 83036; 83690; 83735; 83880; 84100; 84443; 84484; 85025; 88305; 93005; 96372; 99283; A9537; A9541; J0696; J1644; J2405; J2704; J2765; J3490; J7030; J7040; Q0162; Q0164

== ENCOUNTER → 2022-02-04 13:47 | Outpatient (BNVA) | payer MEDICARE, MEDICAID, SELFPAY | PROVIDERS: PCP Family Medicine; Visit Provider Family Medicine | DX: E11.9 Type 2 diabetes mellitus without complications (principal); E78.5 Hyperlipidemia, unspecified; I50.20 Unspecified systolic (congestive) heart failure; I11.0 Hypertensive heart disease with heart failure | CPT/HCPCS: 80053; 80061; 83036; 84443 ==

== ENCOUNTER → 2022-07-24 10:06 | Outpatient (BNVA) | payer MEDICARE, MEDICAID, SELFPAY | PROVIDERS: PCP Family Medicine; Visit Provider Internal Medicine Cardiovascular Disease | DX: I11.0 Hypertensive heart disease with heart failure (principal); I50.22 Chronic systolic (congestive) heart failure; E78.5 Hyperlipidemia, unspecified; G20 Parkinson's disease; Z95.810 Presence of automatic (implantable) cardiac defibrillator; E11.9 Type 2 diabetes mellitus without complications; Z79.84 Long term (current) use of oral hypoglycemic drugs; R06.02 Shortness of breath | CPT/HCPCS: 36415; 80048; 83880; 93005; 93289; 99205 ==

== ENCOUNTER → 2022-07-24 10:06 | Outpatient (BNVA) | payer MEDICARE, MEDICAID, SELFPAY | PROVIDERS: PCP Family Medicine; Visit Provider Internal Medicine Cardiovascular Disease | DX: R06.02 Shortness of breath (principal) | CPT/HCPCS: 36415; 80048; 83880 ==

== ENCOUNTER → 2022-08-07 08:08 | Outpatient (BNVA) | payer MEDICARE, MEDICAID, SELFPAY | PROVIDERS: PCP Family Medicine; Visit Provider Family Medicine | DX: R63.4 Abnormal weight loss (principal); I50.22 Chronic systolic (congestive) heart failure; E78.5 Hyperlipidemia, unspecified; E11.9 Type 2 diabetes mellitus without complications; I10 Essential (primary) hypertension | CPT/HCPCS: 80053; 80061; 83036; 84443 ==

== ENCOUNTER 2022-08-26 06:10 | Outpatient (CLI) | payer MEDICARE, MEDICAID, SELFPAY ==
--- NOTE | 2022-08-26 06:30 | USCV_ITS ---
Tai Kin Age: 57 Gender: M : 1965 Exam Date: 08/26/2022 06:32 Ordering Phys: Karo Foley MD ([email or web address]) Technologist: GRACIELA [place] [facility] [place]: CHRONIC HEART FAILURE, SHORTNESS OF BREATH BP: 117 / 97 HR: 86 Rhythm: Sinus Technical Quality: Suboptimal MEASUREMENTS (Male / Female) Normal Values 2D ECHO LVOT Diameter 2.0 cm LV Ejection Fraction MOD 2C 43.6 % LV Ejection Fraction 2C AL 43.9 % LA Diameter 2.7 cm LA Width 3.3 cm LA Height 3.9 cm RA Width 3.3 cm RA Height 4.1 cm Aorta at Sinotubular Diameter 3.2 cm IVC Diameter 2.0 cm M-MODE Aortic Annulus Diameter 3.1 cm LA Ao Ratio MM 0.9 MV E Point Septal Separation 0.9 cm DOPPLER AV Peak Velocity 87.0 cm/s LVOT Peak Velocity 75.0 cm/s AV Area Cont Eq vti 3.1 cm squared AV Area Cont Eq pk 2.7 cm squared MV Peak Velocity 82.0 cm/s MV Area PHT 3.1 cm squared Mitral E to A Ratio 0.8 MV E' Velocity 32.0 cm/s Mitral E to MV E' Ratio 10.0 Mitral E to LV E' Lateral Ratio 9.7 Mitral E to LV E' Septal Ratio 10.4 TV Peak E Velocity 62.0 cm/s Right Atrial Pressure 3.0 mmHg PV Peak Velocity 149.0 cm/s RV Acceleration Time 0.1 s RV Ejection Time 0.3 s RV AcT/ET 0.5 FINDINGS Left Ventricle Normal LV size with reduced ejection fraction of around 45%. Diffuse hypokinesia of the septum and the anteroseptal segments.mild left ventricular hypertrophy. Right Ventricle Pacemaker/defibrillator wire is noted Right Atrium Pacemaker/defibrillator wire is noted Left Atrium Normal left atrial size. Mitral Valve Structurally normal mitral valve without significant stenosis or prolapse. There is no mitral regurgitation. Aortic Valve Trace aortic valve regurgitation. Tricuspid Valve No gross abnormalities noted Pulmonic Valve Pulmonic valve not well visualized. Pericardium No pericardial effusion. Aorta Normal aortic annulus size. IVC Normal inferior vena cava. CONCLUSIONS Normal LV size with reduced ejection fraction of around 45%. Diffuse hypokinesia of the septum and the anteroseptal segments.mild left ventricular hypertrophy. Pacemaker/defibrillator wire is noted in the right atrium and right ventricle. There is no pericardial effusion. There are no intracardiac masses. No similar previous studies are available for comparison Dr Karo Foley MD [facility] (Electronically Signed) Final Date: 27 August 2022 11:05 S
== END 2022-08-26 06:11 | disposition home or self-care (01) ==
LOC: RAD 06:13
PROVIDERS: PCP Family Medicine; Visit Provider Internal Medicine Cardiovascular Disease
DX: I50.9 Heart failure, unspecified (principal); R06.02 Shortness of breath; Z95.0 Presence of cardiac pacemaker
CPT/HCPCS: 36415; 80048; 83880; 93306

== ENCOUNTER → 2022-10-24 11:43 | Outpatient (BNVA) | payer MEDICARE, MEDICAID, SELFPAY | PROVIDERS: PCP Family Medicine; Visit Provider Internal Medicine Cardiovascular Disease | DX: R06.02 Shortness of breath (principal); I95.1 Orthostatic hypotension; Z95.0 Presence of cardiac pacemaker; I11.0 Hypertensive heart disease with heart failure; I50.22 Chronic systolic (congestive) heart failure; G20 Parkinson's disease | CPT/HCPCS: 36415; 80048; 83880; 99214 ==

== ENCOUNTER → 2023-02-05 08:58 | Outpatient (BNVA) | payer MEDICARE, MEDICAID, SELFPAY | PROVIDERS: PCP Family Medicine; Visit Provider Family Medicine | DX: E78.5 Hyperlipidemia, unspecified; I50.20 Unspecified systolic (congestive) heart failure; E11.9 Type 2 diabetes mellitus without complications; R63.4 Abnormal weight loss; I11.0 Hypertensive heart disease with heart failure | CPT/HCPCS: 80053; 80061; 83036; 84443; 85025; 86140 ==

== ENCOUNTER → 2023-02-26 09:29 | Outpatient (BNVA) | payer MEDICARE, MEDICAID, SELFPAY | PROVIDERS: PCP Family Medicine; Visit Provider Family Medicine | DX: J40 Bronchitis, not specified as acute or chronic (principal); Z20.822 Contact with and (suspected) exposure to COVID-19 | CPT/HCPCS: 87426 ==

== ENCOUNTER → 2023-05-15 11:38 | Outpatient (BNVA) | payer MEDICARE, MEDICAID, SELFPAY | PROVIDERS: PCP Family Medicine; Visit Provider Nurse Practitioner Family | DX: E78.5 Hyperlipidemia, unspecified (principal); I10 Essential (primary) hypertension; I95.1 Orthostatic hypotension | CPT/HCPCS: 85025; 99213 ==

== ENCOUNTER → 2023-06-06 10:33 | Outpatient (BNVA) | payer MEDICARE, MEDICAID, SELFPAY | PROVIDERS: PCP Family Medicine; Visit Provider Family Medicine | DX: E03.9 Hypothyroidism, unspecified (principal); E78.5 Hyperlipidemia, unspecified; I10 Essential (primary) hypertension; I95.1 Orthostatic hypotension | CPT/HCPCS: 80053; 84443; 86140 ==

== ENCOUNTER → 2023-07-08 07:41 | Outpatient (BNVA) | payer MEDICARE, MEDICAID, SELFPAY | PROVIDERS: PCP Family Medicine; Referring Provider Family Medicine; Visit Provider Surgery | DX: K92.1 Melena | CPT/HCPCS: 99204; 99214 ==

== ENCOUNTER 2023-08-06 07:58 | Day surgery (SDC) | payer MEDICARE, MEDICAID, SELFPAY ==
[2023-08-06 08:22] VITALS: BP 123/91; PULSE 103; RESP 18; TEMP 36.4; O2SAT 99; BMI 29.8
--- NOTE | 2023-08-06 08:33 | ANES.PREANE2 ---
Pre-Anesthetic Assessment Height/Weight: Height 1.83 m Weight 99.79 kg Temp Pulse Resp BP Pulse Ox O2 Del Method 97.6 F 103 H 18 123/91 99 Room Air 08/06/23 08:22 08/06/23 08:22 08/06/23 08:22 08/06/23 08:22 08/06/23 08:22 08/06/23 08:22 Operation Date: 08/06/23 09:15 Proposed Procedures p 03275 colonoscopy G0121 screen colon a risk Z12.11(Not Applicable) - Joseph De La Garza DO Familial anesthetic complications: None Was Beta Shaunna taken within 24 hours: Yes Was Clonidine taken within 24 hours: N/A Last intake: Intake Last Liquid Date 08/05/23 Last Liquid Time 20:00 Last Solid Date 08/04/23 Last Solid Time 19:00 Social No alcohol and No tobacco Exam alert, oriented x 3, clear to auscultation bilaterally and regular rate & rhythm Airway Mallampati: Class II Dentition: false CV/HEM Congestive Heart Failure (EF 45%) and Hypertension Pacemaker/defibrillator - 100% V paced. Will have magnet available Metabolic Diabetes Mellitus and Thyroid Disease Neuropsych parkinson's disease Anesthetic Plan ASA status: 4 Anesthesia: MAC Risk of > 500 ml blood loss (7ml/kg in children): No Medications/Allergies Home Medications Medication Instructions Recorded Confirmed Last Taken Type carbidopa 25 mg-levodopa 100 mg 2 tab PO QID 06/03/20 08/04/23 08/06/23 History tablet aspirin 81 mg tablet,delayed 81 mg PO DAILY@0800 06/25/20 08/04/23 08/03/23 History release cholecalciferol (vitamin D3) 50 50 mcg PO DAILY 07/24/22 08/04/23 08/05/23 History mcg (2,000 unit) capsule cyanocobalamin (vitamin B-12) 1,000 mcg PO DAILY 07/24/22 08/04/23 08/05/23 History 1,000 mcg capsule melatonin 12 mg tablet 12 mg PO BEDTIME 07/24/22 08/04/23 08/05/23 History memantine 10 mg tablet 10 mg PO BID 07/24/22 08/04/23 08/05/23 History cetirizine 10 mg capsule (Zyrtec) 10 mg PO DAILY PRN Allergic 0508/04/23 08/05/23 History Symptoms rosuvastatin 20 mg tablet 20 mg PO DAILY@0800 #90 tabs 03/28/23 08/04/23 08/05/23 Rx tamsulosin 0.4 mg capsule 0.4 mg PO DAILY@0800 #90 caps 03/28/23 08/04/23 08/05/23 Rx glipizide 5 mg tablet 5 mg PO DAILY@0800 #30 tabs 05/09/23 08/04/23 08/05/23 Rx fluoxetine 40 mg capsule 40 mg PO DAILY@0800 #30 caps 06/26/23 08/04/23 08/05/23 Rx metoprolol succinate 25 mg 12.5 mg (1/2 x 25 mg) PO DAILY #30 07/14/23 08/04/23 08/06/23 Rx tablet,extended release 24 hr tabs levothyroxine 25 mcg capsule 25 mcg PO DAILY #30 caps 07/28/23 08/04/23 08/06/23 Rx fluoxetine 20 mg capsule 20 mg PO DAILY 08/04/23 08/04/23 08/05/23 History spironolactone 25 mg tablet 25 mg PO DAILY 08/04/23 08/04/23 08/05/23 History Allergies Allergy/AdvReac Type Severity Reaction Status Date / Time No Known Allergies Allergy Verified 08/04/23 09:04 [facility] Anesthesia Medical History Cholelithiasis Abnormal colonoscopy Benign polyp removal Dyslipidemia Diabetes Hypertension Heart failure with reduced ejection fraction Parkinsons disease Surgical History AICD (automatic cardioverter/defibrillator) present Family History Father CAD (coronary artery disease) Family history of premature coronary artery disease Stroke Mother Anesthesia complication CAD (coronary artery disease) Cancer Diabetes Family history of premature coronary artery disease Brother Lung disease Other Dementia Hyperlipidemia Hypertension Denies family history of Clotting disorder Psychiatric illness Chronic kidney disease (CKD) Suicide Bleeding disorder Social History Smoking and tobacco/nicotine status: never used tobacco/nicotine Alcohol intake: never Substance/Drug Use: never Lives independently: Yes Housing: House Data Anesthesia Cardiac Studies: Echocardiogram 08/26/22
[2023-08-06] MEDS: sodium chloride 0.9% 1,000 ML 30 ML IV (08:35)
[2023-08-06 08:42] LABS: Glucose Point of Care 91 mg/dL (70-110)
--- NOTE | 2023-08-06 09:12 | W.PM.OPSUD ---
Surgery/Procedure H&P Update DATE OF PROCEDURE: August 06, 2023 DATE H&P PERFORMED: 07/08/23 H&P UPDATE INFORMATION: I have reviewed H&P completed within last 30 days, I have examined patient prior to procedure and No changes to prior documentation PLANNED PROCEDURE: Operation Date: 08/06/23 09:15 Proposed Procedures p 17523 colonoscopy G0121 screen colon a risk Z12.11(Not Applicable) - Joseph De La Garza, DO
[2023-08-06 09:31] VITALS: BP 100/72; PULSE 91; RESP 18; TEMP 36.3; O2SAT 96
--- NOTE | 2023-08-06 09:36 | PC.NURSE ---
Upon start of procedure, several areas noted to buttocks and perianal area with various stages of healing. Dr De La Garza aware.
[2023-08-06 09:42] VITALS: BP 108/83; PULSE 88; RESP 18; O2SAT 95
[2023-08-06 09:50] VITALS: BP 112/89; PULSE 82; RESP 18; O2SAT 95
--- NOTE | 2023-08-06 10:00 | ANE.PACU2 ---
Inpatient post-anesthesia follow up: Airway intact: Yes Vital signs: Temperature 97.3 F Pulse Rate 82 Respiratory Rate 18 Blood Pressure 112/89 Pulse Oximetry 95 Oxygen Delivery Me thod Room Air Oxygen Flow Rate 6 Fraction of Inspir ed Oxygen Hydration adequate: Yes Nausea and vomiting: No Pain level: 1 Mental status: Baseline
== END 2023-08-06 10:02 | disposition home or self-care (01) ==
PROVIDERS: PCP Family Medicine; Visit Provider Surgery
PROC: 0DJD8ZZ Inspection of Lower Intestinal Tract, Via Natural or Artificial Opening Endoscopic (ICD-10-PCS; CPT 45378; principal; 2023-08-06 09:15)
DX: Z12.11 Encounter for screening for malignant neoplasm of colon (principal); K64.8 Other hemorrhoids; D12.5 Benign neoplasm of sigmoid colon; I11.0 Hypertensive heart disease with heart failure; I50.9 Heart failure, unspecified; Z95.0 Presence of cardiac pacemaker; G20.A1 Parkinson's disease without dyskinesia, without mention of fluctuations; E11.9 Type 2 diabetes mellitus without complications; Z79.82 Long term (current) use of aspirin
CPT/HCPCS: 36416; 45385; 82962; 88305; J2704; J7030

== ENCOUNTER → 2023-08-18 08:28 | Outpatient (BNVA) | payer MEDICARE, MEDICAID, SELFPAY | PROVIDERS: PCP Family Medicine; Visit Provider Family Medicine | DX: R63.4 Abnormal weight loss (principal); I10 Essential (primary) hypertension; I95.1 Orthostatic hypotension; I50.22 Chronic systolic (congestive) heart failure; E11.9 Type 2 diabetes mellitus without complications; X58.XXXA Exposure to other specified factors, initial encounter | CPT/HCPCS: 80053; 80061; 83036; 84443; 85025 ==

== ENCOUNTER → 2023-08-22 09:15 | Outpatient (BNVA) | payer MEDICARE, MEDICAID, SELFPAY | PROVIDERS: PCP Family Medicine; Visit Provider Surgery | DX: Z09 Encounter for follow-up examination after completed treatment for conditions other than malignant neoplasm (principal); D37.4 Neoplasm of uncertain behavior of colon | CPT/HCPCS: 99214 ==

== ENCOUNTER → 2023-11-12 10:02 | Outpatient (BNVA) | payer MEDICARE, MEDICAID, SELFPAY | PROVIDERS: PCP Family Medicine; Visit Provider Internal Medicine Cardiovascular Disease | DX: I11.0 Hypertensive heart disease with heart failure (principal); I50.20 Unspecified systolic (congestive) heart failure; E78.5 Hyperlipidemia, unspecified; Z95.0 Presence of cardiac pacemaker; E13.9 Other specified diabetes mellitus without complications; Z79.84 Long term (current) use of oral hypoglycemic drugs | CPT/HCPCS: 99214 ==

== ENCOUNTER → 2023-11-17 09:57 | Outpatient (BNVA) | payer MEDICARE, MEDICAID, SELFPAY | PROVIDERS: PCP Family Medicine; Visit Provider Family Medicine | DX: I10 Essential (primary) hypertension (principal); I50.22 Chronic systolic (congestive) heart failure; E11.9 Type 2 diabetes mellitus without complications; E03.9 Hypothyroidism, unspecified | CPT/HCPCS: 80053; 83036; 84443; 85025 ==

== ENCOUNTER 2023-11-28 06:49 | Outpatient (CLI) | payer MEDICARE, SELFPAY ==
--- NOTE | 2023-11-28 07:00 | USCV_ITS ---
Tai Kin Age: 58 Gender: M : 1965 Exam Date: 11/28/2023 07:09 Ordering Phys: Karo Foley MD ([email or web address]) Technologist: Gera Jefferson Exam Location: [facility] – [place] Indication: chf BP: 124 / 84 HR: Rhythm: Sinus Technical Quality: Adequate MEASUREMENTS (Male / Female) Normal Values 2D ECHO LV Diastolic Diameter PLAX 3.8 cm 4.2 - 5.9 / 3.9 - 5.3 cm IVS Diastolic Thickness 1.1 cm 0.6 - 1.0 / 0.6 - 0.9 cm IVS Systolic Thickness 1.2 cm LVPW Diastolic Thickness 1.5 cm 0.6 - 1.0 / 0.6 - 0.9 cm LVPW Systolic Thickness 1.6 cm LVOT Diameter 2.1 cm LV Ejection Fraction 2D Teich 49.2 % LV Ejection Fraction MOD 2C 41.6 % LV Ejection Fraction 2C AL 45.5 % LA Diameter 3.3 cm RA Systolic Volume 4C AL 31.6 ml RA Systolic Volume 4C MOD 32.7 ml LA Sys Volume AL 38.4 cm cubed LA Sys Volume Index AL 16.1 cm cubed/m squared Aorta at Sinotubular Diameter 3.2 cm IVC Diameter 1.5 cm M-MODE LA Ao Ratio MM 0.9 AV Cusp Separation MM 1.9 cm FINDINGS Left Ventricle Normal left ventricular size with a slightly diminished ejection fraction of 49%. Mild diffuse hypokinesia of the septum. Mild concentric left trickle hypertrophy. Right Ventricle Defibrillator/pacemaker wire in the right ventricle. RV appears to be of normal size and ejection fraction Right Atrium The right atrium is normal in size. Left Atrium The left atrium is normal in size. Mitral Valve Thickened mitral valve. Aortic Valve No gross abnormalities noted Tricuspid Valve No gross abnormalities noted Pulmonic Valve Structurally normal pulmonic valve without significant stenosis. There is no pulmonic regurgitation. Pericardium Normal pericardium without effusion. Aorta Mildly dilated ascending aorta measuring 3.6 cm in diameter IVC Inferior vena cava not visualized. CONCLUSIONS Normal left ventricular size with a slightly diminished ejection fraction of 49%. Mild diffuse hypokinesia of the septum. Mild concentric left trickle hypertrophy. RV appears to be of normal size and ejection fraction. Defibrillator/pacemaker wire in the right ventricle/right atrium. Thickened mitral valve. There is no pericardial effusion. There are no intracardiac masses. Compared to the study from 08/26/2022, there may not be a significant change Dr Karo Foley MD [facility] (Electronically Signed) Final Date: 02 December 2023 09:03 S
== END 2023-11-28 06:50 | disposition home or self-care (01) ==
LOC: RAD 06:49
PROVIDERS: PCP Family Medicine; Visit Provider Internal Medicine Cardiovascular Disease
DX: I42.9 Cardiomyopathy, unspecified (principal); I34.81 Nonrheumatic mitral (valve) annulus calcification
CPT/HCPCS: 93308

== ENCOUNTER 2023-12-29 10:51 | Outpatient (CLI) | payer MEDICARE, SELFPAY ==
--- NOTE | 2023-12-29 11:45 | USCV_ITS ---
Kin Lujan Age: 58 Gender: M : 1965 Exam Date: 12/29/2023 11:01 Ordering Phys: Dixon Ramirez MD Technologist: CT Exam Location: [facility] [place] Indication: RLE PAIN AND SWELLING HISTORY: Lower extremity swelling. Lower extremity pain. PROCEDURES: Venous duplex imaging was performed in only the right lower extremity. The following venous structures were evaluated: common femoral vein, profunda vein, proximal portion of the greater saphenous vein, superficial femoral vein, and the popliteal vein. In addition, the posterior tibial and peroneal trunk were evaluated. Serial compression, augmentation maneuvers, and spectral Doppler flow evaluation were performed. FINDINGS: No evidence of DVT seen in any vessel visualized at this time. CONCLUSIONS No evidence of right lower extremity DVT. Armin Orantes MD (Electronically Signed) Final Date: 30 December 2023 09:46 S
== END 2023-12-29 10:52 | disposition home or self-care (01) ==
LOC: RAD 10:51
PROVIDERS: PCP Family Medicine; Visit Provider Psychiatry & Neurology Neurology
DX: I10 Essential (primary) hypertension (principal); I95.1 Orthostatic hypotension; I50.20 Unspecified systolic (congestive) heart failure; I82.90 Acute embolism and thrombosis of unspecified vein
CPT/HCPCS: 93971; 99203

== ENCOUNTER 2024-01-09 09:16 | Outpatient (CLI) | payer MEDICARE, SELFPAY ==
--- NOTE | 2024-01-09 09:30 | CT_ITS ---
WS: [id number] CT HEAD WITH AND WITHOUT CONTRAST HISTORY: G20 - Parkinson's disease TECHNIQUE: Noncontrast 2.5 mm axial images obtained from the vertex to the skull base. Additional beverley ging performed at 2.5 mm axial images status post IV contrast. Bone and soft tissue windows are revie wed. All CT scans at [facility] use at least one of these dose optimization techniques: autom ated exposure control; mA and/or kV adjustment per patient size (includes targeted exams where dose i s matched to clinical indication); or iterative reconstruction. CONTRAST: Omnipaque 350; 100 mL IV. DLP: 2707.13 mGy.cm COMPARISON: 06/25/2020 No acute intracranial hemorrhage, edema or midline shift. Mild atrophy and small vessel disease. Renetta lar to 06/25/2020. No infarct identified. No enhancing mass or vascular malformations identified. Dural venous sinuses are normally enhancing. Dominant LEFT vertebral artery. Hypoplastic RIGHT M1 and M2 segments of the middle cerebral artery. T he MCA is patent but smaller caliber than the LEFT. The RIGHT A1 segment is also very small caliber. Paranasal sinuses as visualized: Clear. Mastoid air cells: Clear. Calvarium and scalp: Intact. CT/CT head wo/w con [id number] IMPRESSION: 1. No acute intracranial hemorrhage or edema. 2. Mild cerebral atrophy and small vessel disease. Similar to 06/25/2020. 3. No enhancing masses or vascular malformation. 4. Hypoplastic RIGHT M1, M2 and A1 segments but they are patent.
[2024-01-09] MEDS: iohexol 350 mg/mL 500 mL Btl (per mL) IV (09:50)
== END 2024-01-09 09:17 | disposition home or self-care (01) ==
LOC: RAD 09:17
PROVIDERS: PCP Family Medicine; Visit Provider Psychiatry & Neurology Neurology
DX: G20.A1 Parkinson's disease without dyskinesia, without mention of fluctuations (principal); I66.01 Occlusion and stenosis of right middle cerebral artery
CPT/HCPCS: 70470; Q9967

== ENCOUNTER 2024-01-20 12:54 | Outpatient (CLI) | payer MEDICARE, SELFPAY ==
--- NOTE | 2024-01-20 13:30 | USCV_ITS ---
Kin Lujan Age: 59 Gender: M : 1965 Exam Date: 01/20/2024 13:12 Ordering Phys: Dixon Ramirez MD Technologist: USR Exam Location: [facility] – [place]_ Indication: Risk Factors: Previous Vascular Surgery: Right Brachial BP: / Left Brachial BP: / Right Left Velocity (cm/s) Spectral Plaque Velocity (cm/s) Spectral Plaque Syst/Diast Broadening Syst/Diast Broadening 68.50/ 22.40 Prox CCA 75.50 / 16.40 66.60/ 26.20 Mid CCA 81.00 / 30.50 75.00/ 27.10 Distal CCA 61.10 / 18.30 51.50/ 16.90 Prox ICA 31.00 / 10.60 50.00/ 21.40 Mid ICA 44.10 / 20.60 51.80/ 24.80 Distal ICA 53.50 / 22.50 88.10 ECA 64.30 0.70 ICA/CCA 0.90 Antegrade Vertebral Antegrade 34.60/ 12.00 cm/s 42.70/ 17.40 cm/s Tri Subclavian Tri 66.60 92.00 FINDINGS Comparison: none available. No significant elevation of systolic or diastolic velocities. Waveforms are normal. No significant amount of calcified plaque or intimal thickening identified. CONCLUSIONS Normal carotid doppler ultrasound. Dr. Loree Gipson DO (Electronically Signed) Final Date: 20 January 2024 15:06 S
== END 2024-01-20 12:55 | disposition home or self-care (01) ==
LOC: RAD 12:56
PROVIDERS: PCP Family Medicine; Visit Provider Psychiatry & Neurology Neurology
DX: I50.22 Chronic systolic (congestive) heart failure (principal); I82.90 Acute embolism and thrombosis of unspecified vein
CPT/HCPCS: 93880

== ENCOUNTER 2024-02-19 08:17 | Outpatient (CLI) | payer MEDICARE, SELFPAY ==
--- NOTE | 2024-02-19 08:23 | XR_ITS ---
WS: [id number] Examination: XR chest 2V* [id number] Reason for Exam: dyspnea Date: 02/19/2024 Comparison: June 25, 2020 Findings: The heart is not enlarged. The mediastinum is not widened. Pacer defibrillator wires are in place. There is no pulmonary edema or large pleural effusion. The right hemidiaphragm is elevated. What may represent minimal posterior basilar atelectasis versus minimal pneumonia on the right is noted. There is no dense consolidation. XR/XR chest 2V* [id number] Impression: Pacer leads are in place. There is elevation of the right hemidiaphragm. Posterior atelectasis is suspect ed less likely minimal pneumonia may be present.
== END 2024-02-19 08:18 | disposition home or self-care (01) ==
PROVIDERS: PCP Family Medicine; Visit Provider Family Medicine
DX: R06.00 Dyspnea, unspecified (principal); J98.6 Disorders of diaphragm
CPT/HCPCS: 71046

== ENCOUNTER 2024-03-01 13:11 | Outpatient (CLI) | payer MEDICARE, SELFPAY ==
--- NOTE | 2024-03-01 13:45 | CT_ITS ---
WS: [id number] CT chest w con* [id number] HISTORY: Abnormal chest x-ray TECHNIQUE: Axial imaging performed through the thorax. Coronal and sagittal reformats are submitted. All CT scans at [facility] use at least one of these dose optimization techniques: automated exposure control; mA and/or kV adjustment per patient size (includes targeted exams where dose is mat ched to clinical indication); or iterative reconstruction. CONTRAST: Omnipaque 350; 100 mL IV. DLP: 621.17 mGy.cm COMPARISON: Chest radiograph 02/19/2024 Lungs and central airway: Moderate elevation of the RIGHT hemidiaphragm. Subsegmental atelectasis at the RIGHT lung base due to elevated diaphragm. No pulmonary mass or nodule. Pleura: Normal. No pleural effusion. Heart and pericardium: Normal size heart. LEFT subclavian cardiac pacer/defibrillator is noted. No pe ricardial effusion. Mediastinum and farzaneh: No mediastinum or hilar adenopathy. Vessels: Normal size aorta. Normal great vessels. Bovine arch. Aberrant RIGHT subclavian artery passe s posterior to the esophagus. Chest wall and lower neck: No soft tissue masses. Upper abdomen: Stable hepatic nodule measuring 10 mm since 06/25/2020. This is probably a small cyst. There is a single stone noted in the neck of the gallbladder. No adjacent inflammation. Osseous structures: Mild thoracic spondylosis. CT/CT chest w con* [id number] IMPRESSION: 1. Moderate elevation of the RIGHT hemidiaphragm with minimal RIGHT compressiv e atelectasis at the RIGHT lung base. 2. No pulmonary mass or pneumonia. 3. Aberrant RIGHT subclavian artery. 4. Stable hepatic cyst, 10 mm. 5. Single stone noted in the gallbladder neck. No acute cholecystitis.
[2024-03-01] MEDS: iohexol 350 mg/mL 500 mL Btl (per mL) IV (13:56)
[2024-03-01 14:24] LABS: Blood Urea Nitrogen 20 mg/dL (8-23); Glomerular Filtration Rate 56.1 mL/min (90-130)
== END 2024-03-01 13:12 | disposition home or self-care (01) ==
LOC: RAD 13:11
PROVIDERS: Radiology Neuroradiology; PCP Family Medicine; Visit Provider Family Medicine
DX: Q44.6 Cystic disease of liver (principal); J98.11 Atelectasis; R93.89 Abnormal findings on diagnostic imaging of other specified body structures; K80.20 Calculus of gallbladder without cholecystitis without obstruction; Z95.0 Presence of cardiac pacemaker; Q25.48 Anomalous origin of subclavian artery
CPT/HCPCS: 71260; 82565; 84520

== ENCOUNTER → 2024-05-12 15:49 | Outpatient (BNVA) | payer MEDICARE, SELFPAY | PROVIDERS: PCP Family Medicine; Visit Provider Internal Medicine Cardiovascular Disease | DX: R06.02 Shortness of breath (principal); Z95.0 Presence of cardiac pacemaker; I50.22 Chronic systolic (congestive) heart failure; E78.5 Hyperlipidemia, unspecified; I11.0 Hypertensive heart disease with heart failure | CPT/HCPCS: 36415; 80048; 83880; 99214 ==

== ENCOUNTER → 2024-05-18 09:54 | Outpatient (BNVA) | payer MEDICARE, SELFPAY | PROVIDERS: PCP Family Medicine; Visit Provider Family Medicine | DX: R53.83 Other fatigue (principal); N18.9 Chronic kidney disease, unspecified; E13.9 Other specified diabetes mellitus without complications; I10 Essential (primary) hypertension | CPT/HCPCS: 80053; 83036; 84443; 85025 ==

== ENCOUNTER → 2024-05-27 11:14 | Outpatient (BNVA) | payer MEDICARE, SELFPAY | PROVIDERS: PCP Family Medicine; Visit Provider Psychiatry & Neurology Neurology | DX: M79.661 Pain in right lower leg (principal); G25.0 Essential tremor; R29.2 Abnormal reflex | CPT/HCPCS: 99212 ==

== ENCOUNTER 2024-09-14 06:54 | Outpatient (CLI) | payer MEDICARE, SELFPAY ==
[2024-09-14 07:18] VITALS: PULSE 84; RESP 18; O2SAT 98
[2024-09-14] MEDS: albuterol 2.5 mg/3 mL Neb INHALATION (07:18)
== END 2024-09-14 06:55 | disposition home or self-care (01) ==
LOC: RT 06:58
PROVIDERS: PCP Family Medicine; Visit Provider Family Medicine
DX: R06.00 Dyspnea, unspecified (principal)
CPT/HCPCS: 94060; 94726; 94729; J7613

== ENCOUNTER → 2024-11-12 11:01 | Outpatient (BNVA) | payer MEDICARE, SELFPAY | PROVIDERS: PCP Family Medicine; Visit Provider Nurse Practitioner Family | DX: I50.22 Chronic systolic (congestive) heart failure (principal); R07.9 Chest pain, unspecified | CPT/HCPCS: 36415; 80053; 80061; 83036; 83880; 85025; 93005; 99214 ==

== ENCOUNTER 2024-11-18 09:28 | Outpatient (CLI) | payer MEDICARE, SELFPAY ==
[2024-11-18 11:03] LABS: Basophils % 0.4 %; Eosinophils # 0.2 10^3/uL (0.0-0.8); Eosinophils % 1.5 %; Hematocrit 51.5 % (37-53); Lymphocytes # 2.4 10^3/uL (0.8-4.8); Lymphocytes % 24.1 %; Mean Corpuscular HGB Conc 33.2 g/dL (30-55); Mean Corpuscular Hemoglobin 30.3 pg (27-33); Mean Corpuscular Volume 91.2 fl (82-101); Mean Platelet Volume 10.6 fL (7.4-10.4); Monocytes # 0.9 10^3/uL (0.2-0.9); Monocytes % 9.2 %; Neutrophils # 6.22 10^3/uL (1.8-7.7); Nucleated Red Blood Cells % 0 %; Platelet Count 214 10^3/cmm (157-399); Red Blood Count 5.65 10^6/uL (3.85-5.65); Red Cell Distribution Width 13.4 % (12.1-15.1); White Blood Count 9.74 10^3/uL (3.29-11.43)
[2024-11-18 11:25] LABS: Anion Gap 17.1 (5-19); Blood Urea Nitrogen 20 mg/dL (8-23); Calcium 9.2 mg/dL (8.5-10.5); Carbon Dioxide 22 mmol/L (22-29); Chloride 102 mmol/L (98-107); Glomerular Filtration Rate 61.6 mL/min (90-130); Glucose 108 mg/dL (65-115); Osmolality Calculated 287 mOsm/kg (285-295); Potassium 4.1 mmol/L (3.5-5.1); Sodium 137 mmol/L (136-145)
== END 2024-11-18 09:29 | disposition home or self-care (01) ==
PROVIDERS: PCP Family Medicine; Visit Provider Nurse Practitioner Family
DX: I10 Essential (primary) hypertension (principal)
CPT/HCPCS: 36415; 80048; 85025

== ENCOUNTER → 2024-11-22 14:16 | Outpatient (BNVA) | payer MEDICARE, SELFPAY | PROVIDERS: PCP Family Medicine; Visit Provider Psychiatry & Neurology Neurology | DX: G20.A1 Parkinson's disease without dyskinesia, without mention of fluctuations (principal); M79.661 Pain in right lower leg; G25.0 Essential tremor; R29.2 Abnormal reflex | CPT/HCPCS: G0463 ==

== ENCOUNTER 2024-11-26 09:35 | Outpatient (CLI) | payer MEDICARE, SELFPAY ==
[2024-11-26 10:45] LABS: Anion Gap 15.3 (5-19); Blood Urea Nitrogen 24 mg/dL (8-23); Carbon Dioxide 22 mmol/L (22-29); Chloride 105 mmol/L (98-107); Glomerular Filtration Rate 56.1 mL/min (90-130); Glucose 72 mg/dL (65-115); NT Pro B Type Natriuretic Pept 111 pg/mL (0-125); Osmolality Calculated 289 mOsm/kg (285-295); Potassium 4.3 mmol/L (3.5-5.1); Sodium 138 mmol/L (136-145)
== END 2024-11-26 09:36 | disposition home or self-care (01) ==
PROVIDERS: PCP Family Medicine; Visit Provider Nurse Practitioner Family
DX: I11.0 Hypertensive heart disease with heart failure (principal); I50.22 Chronic systolic (congestive) heart failure; E78.5 Hyperlipidemia, unspecified; Z79.82 Long term (current) use of aspirin; Z95.810 Presence of automatic (implantable) cardiac defibrillator; I50.20 Unspecified systolic (congestive) heart failure
CPT/HCPCS: 36415; 80048; 83880; 99213

== ENCOUNTER 2024-12-24 08:42 | Outpatient (CLI) | payer MEDICARE, SELFPAY ==
[2024-12-24 08:58] VITALS: BMI 33.9
--- NOTE | 2024-12-24 09:05 | NMCV_ITS ---
NM nicci perf SPECT r/s* [id number] Kin Lujan Age: 59 Gender: M : 1965 Exam Date: 12/24/2024 09:43 Ordering Phys: Bhavna Arias NP Technologist: NOEMI Parisi Exam Location: [facility] Indications: cp STRESS TEST [facility] IMAGE PROTOCOL Rest/Stress 1 Lexiscan Day Radiopharmaceutical Dose (mCi) Administration Site Administered by Rest: Tc-99m 11 IV Lu Katie, SOCIAL SCIENCES PROFESSOR Sestamibi Stress:Tc-99m 33 IV Lu Katie, SOCIAL SCIENCES PROFESSOR Sestamibi Rest: 24-Dec-2024 60 Discovery 630 Stress: 24-Dec-2024 30 Discovery 630 0.4mg Lexiscan. Images obtained in supine and prone position. SPECT RESULTS Technical Quality: Good Raw Data Analysis: Normal Image Corrections: No attenuation or motion correction applied Summed Stress Score: 1 Summed Rest Score: 2 Summed Difference Score: 0 PERFUSION FINDINGS Patchy areas of slightly decreased tracer uptake were noted in the anterolateral and apical regions. No significant reversibility was noted in these regions. Segmental wall motion analysis revealing no gross wall motion abnormalities segmental wall motion analysis revealing no gross wall motion abnormalities FUNCTIONAL RESULTS (calculated via Gated SPECT) Stress Image LV EF (%): 69 Stress EDV (mL):70 TID: 0.75 Stress ESV (mL):22 FUNCTIONAL FINDINGS: Segmental wall motion analysis revealing no gross wall motion abnormalities IMPRESSIONS 1. Myocardial perfusion imaging revealing patchy areas of persistent decreased tracer uptake involving the apex and anterolateral regions may suggest myocardial scarring versus attenuation artifact. 2. Normal LV ejection fraction of 69% 3. LV wall motion analysis revealing no gross wall motion abnormalities. 4. Normal LV volume Low probability for coronary ischemia, based on the above findings Dr Karo Foley MD FACC (Electronically Signed) Final Date: 24 December 2024 11:52 S
[2024-12-24 10:35] VITALS: BP 108/78; PULSE 94
--- NOTE | 2024-12-24 14:15 | USCV_ITS ---
Kin Lujan Age: 59 Gender: M : 1965 Exam Date: 12/24/2024 09:10 Ordering Phys: Bhavna Arias NP Technologist: CLAUDIA Exam Location: [facility] [place] Indication: SoB BP: 128 / 60 HR: 73 Rhythm: Sinus Technical Quality: Adequate MEASUREMENTS (Male / Female) Normal Values 2D ECHO LV Diastolic Diameter PLAX 5.5 cm 4.2 - 5.9 / 3.9 - 5.3 cm IVS Diastolic Thickness 1.1 cm 0.6 - 1.0 / 0.6 - 0.9 cm IVS Systolic Thickness 1.6 cm LVPW Diastolic Thickness 1.5 cm 0.6 - 1.0 / 0.6 - 0.9 cm LVPW Systolic Thickness 1.5 cm LVOT Diameter 2.1 cm LV Ejection Fraction 2D Teich 57.8 % LV Ejection Fraction MOD 4C 49.4 % LV Ejection Fraction MOD 2C 41.2 % LV Ejection Fraction 2C AL 42.2 % LA Diameter 3.0 cm RA Systolic Volume 4C AL 31.7 ml RA Systolic Volume 4C MOD 29.2 ml Aorta at Sinotubular Diameter 3.6 cm M-MODE LA Ao Ratio MM 0.8 AV Cusp Separation MM 1.3 cm DOPPLER AV Peak Velocity 81.0 cm/s LVOT Peak Velocity 74.0 cm/s AV Area Cont Eq vti 4.7 cm squared AV Area Cont Eq pk 3.2 cm squared MV Peak Velocity 79.0 cm/s MV Area PHT 6.4 cm squared Mitral E to A Ratio 0.7 TR Peak Velocity 79.0 cm/s TR Peak Gradient 2.5 mmHg TV Peak E Velocity 72.0 cm/s PV Peak Velocity 117.0 cm/s FINDINGS Left Ventricle Left ventricle is normal in size. LV systolic function is mildly reduced with EF of 40-45%. Mild global hypokinesis. Grade 1 diastolic dysfunction Right Ventricle Normal in size and function. Pacemaker lead is seen. Right Atrium Normal in size Left Atrium Normal in size Mitral Valve Structurally normal mitral valve. Trace mitral regurgitation. Aortic Valve Structurally normal aortic valve. No significant stenosis or regurgitation. Tricuspid Valve Insufficient TR jet to evaluate RVSP. Pulmonic Valve Not well visualized Pericardium Normal Aorta Ascending aorta is dilated with diameter of 3.58 cm. IVC Not well visualized CONCLUSIONS LV systolic function is mildly reduced with EF of 40-45%. Grade 1 diastolic dysfunction. Trace mitral regurgitation. Ascending aorta is dilated with diameter of 3.58 cm. Compared to prior echocardiogram from 2023, LV systolic function is mildly reduced Kyle Lovell MD (Electronically Signed) Final Date: 29 December 2024 13:01 S
== END 2024-12-24 08:43 | disposition home or self-care (01) ==
LOC: CDL 08:45
PROVIDERS: PCP Family Medicine; Visit Provider Nurse Practitioner Family
DX: R06.02 Shortness of breath (principal); I50.20 Unspecified systolic (congestive) heart failure; R07.9 Chest pain, unspecified; I51.89 Other ill-defined heart diseases; R93.1 Abnormal findings on diagnostic imaging of heart and coronary circulation; Z96.89 Presence of other specified functional implants; I77.810 Thoracic aortic ectasia
CPT/HCPCS: 36415; 78452; 93017; 93306; 96374; A9500; J2785

== ENCOUNTER → 2025-02-28 14:29 | Outpatient (BNVA) | payer MEDICARE, SELFPAY | PROVIDERS: PCP Family Medicine; Visit Provider Internal Medicine Cardiovascular Disease | DX: I11.0 Hypertensive heart disease with heart failure (principal); I50.22 Chronic systolic (congestive) heart failure; E78.5 Hyperlipidemia, unspecified; Z95.810 Presence of automatic (implantable) cardiac defibrillator; R06.02 Shortness of breath | CPT/HCPCS: 36415; 80048; 83880; 99214 ==

== ENCOUNTER → 2025-03-11 10:28 | Outpatient (BNVA) | payer MEDICARE, SELFPAY | PROVIDERS: PCP Family Medicine; Visit Provider Internal Medicine Cardiovascular Disease | DX: Z45.02 Encounter for adjustment and management of automatic implantable cardiac defibrillator (principal) | CPT/HCPCS: 93289 ==

== ENCOUNTER → 2025-03-31 08:35 | Outpatient (BNVA) | payer MEDICARE, SELFPAY | PROVIDERS: PCP Family Medicine; Visit Provider Family Medicine | DX: I11.0 Hypertensive heart disease with heart failure (principal); I50.20 Unspecified systolic (congestive) heart failure; R07.9 Chest pain, unspecified; E13.9 Other specified diabetes mellitus without complications; R63.4 Abnormal weight loss | CPT/HCPCS: 80053; 80061; 83036; 84443; 84484; 85025 ==

== ENCOUNTER → 2025-05-04 08:30 | Outpatient (BNVA) | payer MEDICARE, SELFPAY | PROVIDERS: PCP Family Medicine; Visit Provider Nurse Practitioner Family | DX: I11.0 Hypertensive heart disease with heart failure (principal); I50.22 Chronic systolic (congestive) heart failure; R07.9 Chest pain, unspecified; E78.2 Mixed hyperlipidemia; Z95.810 Presence of automatic (implantable) cardiac defibrillator; R06.02 Shortness of breath | CPT/HCPCS: 99214 ==

== ENCOUNTER → 2025-05-17 11:11 | Outpatient (BNVA) | payer MEDICARE, SELFPAY | PROVIDERS: PCP Family Medicine; Visit Provider Internal Medicine | DX: J45.909 Unspecified asthma, uncomplicated (principal) | CPT/HCPCS: 99204; Q3014 ==

== ENCOUNTER 2025-05-20 07:14 | Outpatient (CLI) | payer MEDICARE, SELFPAY ==
[2025-05-20] VITALS (22 sets, daily range): BP systolic 97–153; BP diastolic 61–98; PULSE 65–85; RESP 12–24; TEMP 36.6–36.8; O2SAT 91–97; BMI 35.6
[2025-05-20 07:46] LABS: Hematocrit 48.9 % (37-53); Hemoglobin 16.20 g/dL (11.27-16.99); Mean Corpuscular HGB Conc 33.1 g/dL (30-55); Mean Corpuscular Hemoglobin 30.6 pg (27-33); Mean Corpuscular Volume 92.4 fl (82-101); Nucleated Red Blood Cells % 0 %; Platelet Count 200 10^3/cmm (157-399); Red Blood Count 5.29 10^6/uL (3.85-5.65); White Blood Count 8.55 10^3/uL (3.29-11.43)
[2025-05-20 08:07] LABS: Anion Gap 16.1 (5-19); Blood Urea Nitrogen 22 mg/dL (8-23); Calcium 9.3 mg/dL (8.5-10.5); Carbon Dioxide 26 mmol/L (22-29); Chloride 100 mmol/L (98-107); Glucose 124 mg/dL (65-115); Osmolality Calculated 291 mOsm/kg (285-295); Potassium 4.1 mmol/L (3.5-5.1); Sodium 138 mmol/L (136-145)
--- NOTE | 2025-05-20 08:26 | W.PM.OPSUD ---
Surgery/Procedure H&P Update DATE OF PROCEDURE: May 20, 2025 DATE H&P PERFORMED: 05/02/25 H&P UPDATE INFORMATION: I have reviewed H&P completed within last 30 days, I have examined patient prior to procedure and No changes to prior documentation PREOP DIAGNOSIS: Possible ASHD PRIMARY INDICATION FOR PROCEDURE: CHF/cardiomyopathy PLANNED PROCEDURE: Operation Date: 05/20/25 08:30 Proposed Procedures p Cardiac Catheterization(Bilateral) - Karo Foley MD PATIENT REASSESSED PRIOR TO SEDATION, WITH NO CHANGE NOTED: Yes PHYSICAL EXAM: alert, oriented x 3, clear to auscultation bilaterally and regular rate & rhythm AIRWAY EVAL/ANESTHESIA PLAN: normal airway, see other exam findings, ASA III, Local Anesthesia, Risks, benefits & alternatives of sedation and/or procedure discussed and Patient agrees to continue as planned
--- NOTE | 2025-05-20 08:30 | XACV_ITS ---
Exam Room: 2 Ht: 183 cm Wt: 119 kg BSA: 2.50 m2 Gender: Male : 1965 Any Known Allergies: No known allergies Exam Priority: Routine Procedure(s): Procedure Description: Diagnostic procedure Procedure Description: Left Heart Catheterization Procedure Description: Right Heart Catheterization Procedure Description: O2 saturation Procedure Description: Coronary Angiography Og ESPINOSA; Diagnostic Cath Status: Elective Diagnostic Findings * Left main is very short large-caliber vessel with no significant the lesions. * Left anterior descending artery is an elongated vessel which appears to taper off towards the LV apex. The proximal segment of the artery is ectatic. 20 to 30% diffuse narrowing was noted in the proximal segment of the artery. The flow in the artery appears to be slow. Mild diffuse intimal irregularities are noted in the distal artery. * The left circumflex artery is a diffusely ectatic large vessel with a no significant stenotic lesions. Flow in this artery also was found to be somewhat sluggish. No significant stenotic lesions were noted.. * The right coronary artery is the dominant vessel with diffuse ectasia. There is a small area of aneurysmal dilatation right after the first RV branch. Diffuse intimal irregularities are noted in the artery involving the PLV and PDA branches. No significant stenotic lesions were noted. Conclusions 1. 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 He had a Myocardial perfusion imaging which revealed areas of fixed defects with a small areas of reversible defects. Initially it was opted to treat him medically. But because of worsening shortness of breath and chest discomfort, in order to further evaluate the coronary status, a cardiac catheterization was recommended. Patient underwent left and right heart catheterization with a left and right coronary angiogram today. The findings are as follows.. 2. 1. Diffuse coronary ectasia involving all the 3 coronary arteries. Sluggish flow in the LAD and circumflex artery, possibly due to endothelial dysfunction. Mild diffuse coronary artery disease. No significant stenotic lesions. LVEDP of 14 mmHg. PA pressure of 28/14 with a mean of 18. Pulmonary capillary wedge pressure was 14. Mean RA pressure was 12. Cardiac output by Marge's was 4.0 with an index of 2.. Diagnostic RX Recommendation: medical therapy and/or counseling Left Ventriculography Findings: * LV gram was not performed because of the concern of the dye overload. The LVEDP was 40 mmHg. Pressures Phase:Rest AO : 109 / 78 ( 92 ) @ 10:49:00 AM 115 / 72 ( 90 ) @ 11:02:00 AM 113 / 70 ( 89 ) @ 11:02:00 AM LV : 113 / 14 / 14 @ 11:02:00 AM 110 / 12 / 15 @ 11:02:00 AM RV : 30 / 5 / 9 @ 10:40:00 AM PA : 28 / 14 ( 18 ) @ 10:38:00 AM RA : a wave = 14 v wave = 13 mean = 12 @ 10:41:00 AM PCW : a wave = 13 v wave = 14 mean = 12 @ 10:39:00 AM Hemodynamic Findings Right heart catheterization was performed because of the patient's history of heart failure, cardiomyopathy, COPD and severe shortness of breath. The right atrial mean pressure was 13. RV pressure was 30/5. The PA pressure was 28/14 with a mean of 18. The capillary wedge pressure was 14. Cardiac output was 4.0 with an index of 2. O2 Content Phase:Rest PA : O2 Content O2: 60.4 @ 11:02:00 AM Saturations Phase:Rest AO : 94 @ 10:49:00 AM RA : 63 @ 11:02:00 AM RV : 64 @ 11:02:00 AM PA : 60 @ 11:02:00 AM Cardiac Output Phase:Rest Marge : 4 @ 11:26:22 AM Marge Cardiac Index: 2 @ 11:26:22 AM Flow Phase:Rest Qp : 4 @ 11:26:22 AM Qs : 4 @ 11:26:22 AM Valves Phase:DefaultPhase AV : 0.0 @ 11:26:22 AM AV Mean Gradient: 0.0 @ 11:26:22 AM AV Flow: 1,500 @ 11:26:22 AM Clinical Evaluation EBL: 5mL-10mL Procedural Details Procedure Consent Obtained. Admit Source: Out Patient. Pre-Procedure Time Out. Identified patient by full name and date of as verbalized by the patient/guarantor. Does the consent match the physician's order: Yes. Accurate & Complete Informed Consent: Yes. Inpatient/Outpatient History & Physical on Chart: Yes. If H&P is completed, is and addenduem needed: No; If yes, is the addendum complete: N/A. Visualize and Verify Site with Patient/Guarantor: N/A. Relevant Radiology Images available: Yes. The risks, benefits, and alternatives of sedation and/or procedure were discussed by physician. The patient agrees to continue. Procedure started. [facility] Clinical Fraility Score: 3: Managing Well. Planogrammer Indications: Cardiomyopathy, CHF. Chest Pain Symptom Assessment: Typical Angina Symptoms. Correct patient, site and procedure confirmed by cath team. Current diagnosis: CHF, Cardiomyopathy. PERRLA. Strong, equal hand tire rebuilder bilaterally. Lungs clear x 5 lobes. IV Site on Arrival: 20 gauge in the right anticubital. IV Site on Arrival: 20 gauge in the left anticubital. IV Fluids: 0.9% NaCl at KVO. 300 mL infused prior to labor training manager. Pre Procedural Pulses: bilateral radial was 1+. Pre Procedural Pulses: bilateral dorsalis pedis was Doppled. Pre Procedural Pulses: bilateral posterior tibial was Doppled. right brachial was prepped with chloroprep then draped in the usual sterile fashion. right groin was prepped with chloroprep then draped in the usual sterile fashion. Baseline sample Acquired. HR: 65 BPM. Physician notified. Physician arrived. Physician scrubbed in. Immediate Pre-Procedure Time Out. Correct Patient: Yes; Correct Procedure: Yes; Correct Site: Yes; Correct Patient Position: Yes; Correct Supplies: Yes; Dried Flammable Prep: Yes; Blood Products Available: Yes;. Lidocaine 1% infiltrated to the right brachial. Derby-Yesi MON catheter inserted. Hand injection through Derby catheter. 0.25 swan wire in through swan catheter. Catheter repositioned., wire out. Pressure measurements obtained. Oximetry samples were obtained. Normal venous range: 60-85%. Normal arterial range: 95-100%. Derby-Yesi out. Lidocaine 1% infiltrated to the right groin. Arterial access obtained with micropuncture set. ABG drawn and sent with respiratory therapy. Oxygen started at 2liters/min via nasal canula. A 5 pakistani JL4 catheter in over wire. Multiple views taken of left coronary artery. Catheter removed over the standard wire. A 5 pakistani JR4 catheter in over wire. Multiple views taken of right coronary artery. A 5 pakistani Angled Pig catheter in over wire. EDP Sample taken: LV 113/14,14; HR: 67 BPM; SpO2: 97%. Pullback taken: LV 110/12,15; AO 115/72(90); Mean: 0mmHg, Peak to Peak: 0mmHg, SEP: 3sec/min; HR: 66 BPM; SpO2: 97%. Catheter removed over the standard wire. A Right femoral angiogram was performed to determine safe placement of closure device. Dr. Lovell scrubbed into procedure for placement of closure device. A Mynx was successful obtaining hemostatsis at the Right Femoral artery insertion site. EXP . LOT # [id number]. Post Procedure: Pulses reassessed and unchanged. PERRLA. Strong, equal hand tire rebuilder bilaterally. No VTE prophylaxis required. Medication's Wasted: Lidocaine 1% = 10 mL. Medication's Wasted: Other = Fentanyl 100mcg. Medication's Wasted: Heparin = 4500 units. Total IV fluids: 50 mL. Post-op diagnosis: Cardiomyopathy, CHF, Mild CAD. Complications: None. Estimated blood loss: 5mL-10mL. Responsiveness - Normal response to verbal stimuli; alert and oriented, PERRLA. Airway - Unaffected, no intervention required; spontaneous ventilation. Circulation: W/N/L, pulses unchanged. Nausea/Vomiting: No. A Manual Compression was successful obtaining hemostatsis at the Right Brachial Vein insertion site. Procedure completed. Patient transferred by stretcher to CPRU. Vital chart was stopped. Access Site Site: Right Brachial Vein Sheath Size: 6 Fr Hemostasis Method: Manual Compression Hemostasis Success: Successful Site: Right Femoral artery Sheath Size: 6 Fr Hemostasis Method: Mynx Hemostasis Success: Successful Procedure Medications Start: 10:32 AM Stop: 10:32 AM Medication: Versed Amount: 2 mg Route: I.V. Start: 10:48 AM Stop: 10:48 AM Medication: Heparin Amount: 1500 units Route: I.V. I, the attending physician, have reviewed and verified all procedure medications. Yes, all medications given per verbal order History/Risk Factors Hypertension: Yes Dyslipidemia: Yes Peripheral Arterial Disease (PAD): No Myocardial Infarction (PR): No Obesity: No Renal Disease: No Tobacco Use: Never Prior Interventions PCI: No CABG: No Valve Surgery: No Report Signatures Finalized by Dr Karo Foley MD [facility] on 05/20/2025 04:18 PM
--- NOTE | 2025-05-20 08:35 | PC.NURSE ---
Creatinine 1.5. Dr. Foley made aware. Verbal orders received. A 250 mL NS bolus was initiated and will be followed by NS at 100mL/hr.
[2025-05-20 11:09] LABS: Alveolar-Arterial Oxygen Gradi 3.5 mmHg (5-10); Arterial Blood Gas Hematocrit 47.2 % (42-52); Blood Gas Operator Identificat GD; Blood Gas Sample Site Not specified; Blood Gas Sample Type Arterial; Carboxyhemoglobin < 0.3 %THgb (0.4-20.1); Methemoglobin 1.1 % (0.4-1.5)
[2025-05-20 11:12] LABS: Arterial Blood Gas Hematocrit 53.3 % (42-52); Blood Gas Operator Identificat GD; Blood Gas Sample Site Not specified; Blood Gas Sample Type Not specified; Carboxyhemoglobin < 0.3 %THgb (0.4-20.1); Methemoglobin 0.9 % (0.4-1.5)
[2025-05-20 11:14] LABS: Arterial Blood Gas Hematocrit 23.4 % (42-52); Blood Gas Operator Identificat GD; Blood Gas Sample Site Not specified; Blood Gas Sample Type Not specified; Carboxyhemoglobin 1.1 %THgb (0.4-20.1); Methemoglobin 1.5 % (0.4-1.5)
--- NOTE | 2025-05-20 11:15 | PC.NURSE ---
Received the patient back from the collaborative teacher via bed s/p Diagnostic C. Patient drowsy. Awakens to verbal stimuli. A & 0 x 3. electronic device monitor placed and vital signs obtained. Right femoral access site s/p Angioseal. Groin soft with no bleeding or hematoma noted. Dressing D/I. Bulky pressure dressing to the right brachial access site. No bleeding or hematoma noted. Palpable radial pulse. No other assessment changes noted from pre cath assessment. Will transfer to floor bed for overnight hydration when bed becomes available. Family at bedside. No concerns voiced at this time.
[2025-05-20 11:17] LABS: Arterial Blood Gas Hematocrit 38.2 % (42-52); Blood Gas Operator Identificat GD; Blood Gas Sample Site Not specified; Blood Gas Sample Type Not specified; Carboxyhemoglobin 0.8 %THgb (0.4-20.1); Methemoglobin 1.2 % (0.4-1.5)
--- NOTE | 2025-05-20 12:00 | PC.NURSE ---
Pressure dressing to the right brachial site removed. No bleeding noted.
--- NOTE | 2025-05-20 13:40 | PC.NURSE ---
Patient transferred to [facility] via bed with her spouse and all belongings. Report called to NEFTALI Baird.
--- NOTE | 2025-05-20 15:15 | PC.NURSE ---
Report called to NEFTALI Gómez. Will transfer to room 101 at 1530.
--- NOTE | 2025-05-20 15:41 | PC.NURSE ---
Patient transferred from chemical processing laborer to CSU at 1535.
--- NOTE | 2025-05-20 17:09 | PC.NURSE ---
DR Foley is called to confirm the lasix 20mg at 1700, and patient has NS 75ml/hr. Provider ordered to hold lasix 20mg at 1700.
[2025-05-20] MEDS: carbidopa-levodopa 25-100mg Tablet 2 EACH PO ×2 (17:19→20:14)
[2025-05-20] MEDS: MELATONIN 3 MG TABLET 12 MG PO (20:15)
[2025-05-21] VITALS (19 sets, daily range): BP systolic 106–154; BP diastolic 69–102; PULSE 70–108; RESP 14–22; TEMP 36.2–36.9; O2SAT 92–96
[2025-05-21] MEDS: carbidopa-levodopa 25-100mg Tablet 2 EACH PO ×4 (06:08→23:32)
[2025-05-21] MEDS: metoprolol succinate ER (24 HR) 25 mg Tablet 12.5 MG PO (06:14)
--- NOTE | 2025-05-21 12:18 | PC.NURSE ---
Per Dr. Ridley order a UA, CBC, and start a cardizem drip.
[2025-05-21 12:19] LABS: Anion Gap 17.1 (5-19); Blood Urea Nitrogen 15 mg/dL (8-23); Calcium 9.0 mg/dL (8.5-10.5); Carbon Dioxide 22 mmol/L (22-29); Chloride 101 mmol/L (98-107); Glucose 126 mg/dL (65-115); Osmolality Calculated 284 mOsm/kg (285-295); Potassium 4.1 mmol/L (3.5-5.1); Sodium 136 mmol/L (136-145)
[2025-05-21 12:38] LABS: Glucose Urine UA Negative (Normal); Nitrate Urine Negative (Negative); Specific Gravity, Urine 1.010 (1.005-1.030)
[2025-05-21 12:41] LABS: Add Urine Microscopic? YES
[2025-05-21] MEDS: DILTIAZEM HCL/D5W 125 MG/125 ML BAG IV (12:43)
[2025-05-21 13:00] LABS: Hematocrit 47.6 % (37-53); Hemoglobin 15.60 g/dL (11.27-16.99); Mean Corpuscular HGB Conc 32.8 g/dL (30-55); Mean Corpuscular Hemoglobin 30.8 pg (27-33); Mean Corpuscular Volume 93.9 fl (82-101); Nucleated Red Blood Cells % 0 %; Platelet Count 163 10^3/cmm (157-399); Red Blood Count 5.07 10^6/uL (3.85-5.65); White Blood Count 7.84 10^3/uL (3.29-11.43)
--- NOTE | 2025-05-21 16:46 | P.PN_ITS ---
Subjective 2 Subjective: This morning patient was tachycardic with atrial tachycardia heart rate ranging to 120s to 130s Discharge was canceled He is status post cath left heart cath did not show any significant coronary disease and right heart cath did not show pulmonary hypertension Vitals/I&O/Wt Last Vital Signs Temp 97.1 F L 05/21/25 05:26 Pulse 108 H 05/21/25 14:38 Resp 18 05/21/25 14:38 BP 119/84 05/21/25 12:32 Pulse Ox 93 05/21/25 14:38 O2 Del Method Room Air 05/21/25 14:51 05/21/25 05/21/25 05/21/25 06:59 14:59 22:59 Intake Total 1240 / 1240 11.917 / 1251.917 Output Total 560 / 1510 1050 / 1050 Balance -560 / 310 190 / 190 11.917 / 201.917 Weight last 48 hrs Weight 263 lb Weight 263 lb Physical Exam 2 Const: OTHER: GENERAL: Patient is alert, awake and oriented x3. Appears to be nervous HEART: Regular S1 and S2. No murmur, rub or gallop. LUNGS: Clear to auscultate bilaterally. CENTRAL NERVOUS SYSTEM: Grossly nonfocal. EXTREMITIES: Lower extremities with out edema bilaterally. Data 05/21/25 12:44 05/21/25 11:57 A&P Assessment and plan 1. Heart failure with reduced ejection fraction: 2. SOB (shortness of breath): 3. Tachycardia: 4. Presence of permanent cardiac pacemaker: 5. Chronic systolic congestive heart failure, NYHA class 2: 6. Hypertension: Plan: Due to tachycardia patient discharge was canceled, heart rate was ranging 120-130s. Cardizem drip was started. Increase metoprolol to 37.5 succinate once a day We will add Entresto given LV dysfunction and low ejection fraction if tolerated blood pressure henriquez from tomorrow Continue Lasix 20 mg p.o. twice daily White cell count not elevated UTI rule out Patient was feeling shivering but he has parkinsonism which could causing the tremor as well Hopefully heart rate settles lungs will discharge tomorrow PDMP PDMP Reviewed: Not Reviewed Attestations 2 Medical Necessity Statement*: Patient will requiring continuation hospitalization for tachycardia palpitation and racing of the heart for that he requires optimization of medicine Coding Level of Care Code Acute Code for Chg Fwd Diagnoses Heart failure with reduced ejection fraction I50.20 SOB (shortness of breath) R06.02 Tachycardia R00.0 Presence of permanent cardiac pacemaker Z95.0 Chronic systolic congestive heart failure, NYHA class 2 I50.22 Hypertension I10
[2025-05-21] MEDS: MELATONIN 3 MG TABLET 12 MG PO (21:29)
[2025-05-22] VITALS (17 sets, daily range): BP systolic 108–152; BP diastolic 76–97; PULSE 77–89; RESP 15–18; TEMP 36.6–37; O2SAT 94–96
--- NOTE | 2025-05-22 00:13 | PC.NURSE ---
cardizem 5 --- pt HR maintaing at 77, ox sat 94 at RA. no complaints
[2025-05-22] MEDS: metoprolol succinate ER (24 HR) 25 mg Tablet 37.5 MG PO (05:36)
[2025-05-22] MEDS: carbidopa-levodopa 25-100mg Tablet 2 EACH PO ×2 (05:36→10:06)
--- NOTE | 2025-05-22 13:19 | PM.DCS ---
Discharge Providers Date of Discharge: May 22, 2025 Attending Provider at Discharge: Karo Foley MD Primary Care Provider: Neville Hinton MD Diagnoses at Discharge Discharge Diagnosis 1. Heart failure with reduced ejection fraction: 2. SOB (shortness of breath): 3. Tachycardia: 4. Presence of permanent cardiac pacemaker: 5. Chronic systolic congestive heart failure, NYHA class 2: 6. Primary hypertension: Reason for Visit Reason for Visit: R07.9 Hospital Course Hospital Course 60-year-old male admitted after left and right heart cath with atrial tachycardia feeling cold and shivering noted to have heart rate in the 130s. Medication were optimized started on Cardizem drip as well as titration of beta-clinton was performed. It is the reason patient was kept extra day because his heart rate was not getting under control and he was not feeling well and short of breath. After optimization of medicine heart rate is in sinus rhythm he has intermittent permanent pacemaker placement. Cardizem drip was discontinued. He is feeling much better. CBC BMP and UA was normal. He does not having more shivering. We would therefore discontinue him home. Left heart cath did not show significant obstructive disease right heart cath was also not suggestive of pulmonary hypertension. Overall patient is doing much better today remains in sinus rhythm therefore we will be discharging him. He will be following up with Dr. Foley Physical Exam Const: OTHER: GENERAL: Patient is alert, awake and oriented x3. HEART: Regular S1 and S2. No murmur, rub or gallop. LUNGS: Clear to auscultate bilaterally. CENTRAL NERVOUS SYSTEM: Grossly nonfocal. EXTREMITIES: Lower extremities with out edema bilaterally. 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 request for service Routine Exams 05/20/25 08:30 Completed Laboratory Results WBC 7.84 10^3/uL (3.29-11.43) 05/21/25 12:44 RBC 5.07 10^6/uL (3.85-5.65) 05/21/25 12:44 Hgb 15.60 g/dL (11.27-16.99) 05/21/25 12:44 Hct 47.6 % (37-53) 05/21/25 12:44 MCV 93.9 fl (82-101) 05/21/25 12:44 MCH 30.8 pg (27-33) 05/21/25 12:44 MCHC 32.8 g/dL (30-55) 05/21/25 12:44 RDW 13.3 % (12.1-15.1) 05/21/25 12:44 Plt Count 163 10^3/cmm (157-399) 05/21/25 12:44 MPV 10.3 fL (7.4-10.4) 05/21/25 12:44 Neut % (Auto) 87.3 % 05/21/25 12:44 Lymph % (Auto) 4.3 % 05/21/25 12:44 Humphreys % (Auto) 6.1 % 05/21/25 12:44 Eos % (Auto) 1.4 % 05/21/25 12:44 Baso % (Auto) 0.4 % 05/21/25 12:44 Neut # (Auto) 6.84 10^3/uL (1.8-7.7) 05/21/25 12:44 Lymph # (Auto) 0.3 10^3/uL (0.8-4.8) L 05/21/25 12:44 Humphreys # (Auto) 0.5 10^3/uL (0.2-0.9) 05/21/25 12:44 Eos # (Auto) 0.1 10^3/uL (0.0-0.8) 05/21/25 12:44 Baso # (Auto) 0.0 10^3/uL (0.0-0.1) 05/21/25 12:44 Nucleated RBC % (auto) 0 % 05/21/25 12:44 Nucleated RBCs # 0.0 /100WBC 05/21/25 12:44 Specimen Type Not specified 05/20/25 11:00 Specimen Type Not specified 05/20/25 11:00 Specimen Type Not specified 05/20/25 11:00 Sample Site Not specified 05/20/25 11:00 Sample Site Not specified 05/20/25 11:00 Sample Site Not specified 05/20/25 11:00 Chuck Test N/a 05/20/25 11:00 Chuck Test N/a 05/20/25 11:00 Chuck Test N/a 05/20/25 11:00 A-a O2 Gradient Not Reportable 05/20/25 11:00 A-a O2 Gradient Not Reportable 05/20/25 11:00 A-a O2 Gradient Not Reportable 05/20/25 11:00 Hematocrit 23.4 % (42-52) L 05/20/25 11:00 Hematocrit 38.2 % (42-52) L 05/20/25 11:00 Hematocrit 53.3 % (42-52) H 05/20/25 11:00 Hgb O2 Saturation 59.8 % (95-100) L 05/20/25 11:00 Hgb O2 Saturation 61.8 % (95-100) L 05/20/25 11:00 Hgb O2 Saturation 62.1 % (95-100) L 05/20/25 11:00 Carboxyhemoglobin 0.8 %THgb (0.4-20.1) 05/20/25 11:00 Carboxyhemoglobin 1.1 %THgb (0.4-20.1) 05/20/25 11:00 Carboxyhemoglobin < 0.3 %THgb (0.4-20.1) L 05/20/25 11:00 Methemoglobin 0.9 % (0.4-1.5) 05/20/25 11:00 Methemoglobin 1.2 % (0.4-1.5) 05/20/25 11:00 Methemoglobin 1.5 % (0.4-1.5) 05/20/25 11:00 Total Hemoglobin 7.6 g/dL (14-18) L 05/20/25 11:00 Total Hemoglobin 12.4 g/dL (14-18) L 05/20/25 11:00 Total Hemoglobin 17.4 g/dL (14-18) 05/20/25 11:00 O2 Delivery Device Room air 05/20/25 11:00 O2 Delivery Device Room air 05/20/25 11:00 O2 Delivery Device Room air 05/20/25 11:00 FiO2 21.0 % 05/20/25 11:00 FiO2 21.0 % 05/20/25 11:00 FiO2 21.0 % 05/20/25 11:00 Cell Feed Department Supervisor ID Gd 05/20/25 11:00 Cell Feed Department Supervisor ID Gd 05/20/25 11:00 Cell Feed Department Supervisor ID Gd 05/20/25 11:00 Sodium 136 mmol/L (136-145) 05/21/25 11:57 Potassium 4.1 mmol/L (3.5-5.1) 05/21/25 11:57 Chloride 101 mmol/L (98-107) 05/21/25 11:57 Carbon Dioxide 22 mmol/L (22-29) 05/21/25 11:57 Anion Gap 17.1 (5-19) 05/21/25 11:57 BUN 15 mg/dL (8-23) 05/21/25 11:57 Creatinine 1.3 mg/dL (0.7-1.2) H 05/21/25 11:57 GFR Calculation 55.9 mL/min (90-130) L 05/21/25 11:57 Glucose 126 mg/dL (65-115) H 05/21/25 11:57 POC Glucose 159 mg/dL (70-110) H 05/20/25 15:49 Calculated Osmolality 284 mOsm/kg (285-295) L 05/21/25 11:57 Calcium 9.0 mg/dL (8.5-10.5) 05/21/25 11:57 Urine Color Yellow (Yellow) 05/21/25 12:29 Urine Appearance Clear (CLEAR) 05/21/25 12:29 Urine pH 5.0 (5-7) 05/21/25 12: Ur Specific [place] 1.010 (1.005-1.030) 05/21/25 12: Urine Protein Negative (Negative) 05/21/25 12: Urine Glucose (UA) Negative (Normal) 05/21/25 12: Urine Ketones Negative (Negative) 05/21/25 12: Urine Blood 2+ (Negative) A 05/21/25 12: Urine Nitrate Negative (Negative) 05/21/25 12: Urine Bilirubin Negative (Negative) 05/21/25 12: Urine Urobilinogen 1.0 mg/dL (Negative) 05/21/25 12: Ur Leukocyte Esterase Negative (Negative) 05/21/25 12:29 Urine RBC 0-2 /hpf (0-2) 05/21/25 12:29 Urine WBC 0-5 /hpf (0-5) 05/21/25 12:29 Ur Squamous Epith Cells 0-5 /hpf (0-5) 05/21/25 12:29 Amorphous Sediment Not Reportable 05/21/25 12:29 Urine Bacteria None seen /hpf (NONE) 05/21/25 12:29 Hyaline Casts 0-4 /lpf H 05/21/25 12:29 Vitals Last Vital Signs Temp 98.6 F 05/22/25 03:38 Pulse 77 05/22/25 12:00 Resp 16 05/22/25 12:00 BP 108/76 05/22/25 12:00 Pulse Ox 95 05/22/25 12:00 O2 Del Method Room Air 05/22/25 12:00 O2 Flow Rate 2 05/22/25 12:00 Discharge Plan Discharge Patient Disposition: Home Prescriptions: Continued Zyrtec 10 mg capsule 10 mg PO DAILY PRN (Reason: Allergic Symptoms) budesonide-formoterol [Symbicort] 80-4.5 mcg/actuation HFA aerosol inhaler 2 puff inhalation BID Qty: 10.2 6RF isosorbide mononitrate 30 mg tablet extended release 24 hr 30 mg PO DAILY Qty: 30 0RF melatonin 12 mg tablet 12 mg PO BEDTIME cholecalciferol (vitamin D3) 50 mcg (2,000 unit) capsule 50 mcg PO DAILY cyanocobalamin (vitamin B-12) 1,000 mcg capsule 1,000 mcg PO DAILY nitroglycerin 0.4 mg tablet, sublingual 0.4 mg sublingual Q5M PRN (Reason: chest pain) Qty: 30 0RF Rx Instructions: do not exceed 3 doses per episode carbidopa-levodopa 25-100 mg tablet 2 tab PO QID Qty: 180 11RF albuterol sulfate [Ventolin HFA] 90 mcg/actuation HFA aerosol inhaler 2 puff inhalation Q6H PRN (Reason: shortness of breath or wheezing) Qty: 8.5 11RF pantoprazole 40 mg tablet,delayed release (DR/EC) 40 mg PO DAILY Qty: 30 11RF glipizide 5 mg tablet 5 mg PO DAILY@0800 Qty: 30 11RF fluoxetine 40 mg capsule 40 mg PO DAILY@0800 Qty: 30 11RF memantine 10 mg tablet See Rx Instructions .ROUTE .COMPLEX Qty: 180 3RF Dose Instruction: TAKE ONE TABLET BY MOUTH TWICE DAILY Rx Instructions: TAKE ONE TABLET BY MOUTH TWICE DAILY potassium chloride 8 mEq capsule, extended release 8 meq PO BID Qty: 90 2RF Rx Instructions: Take 1 tablet with lasix as needed for shortness of breath spironolactone 25 mg tablet See Rx Instructions .ROUTE .COMPLEX Qty: 90 3RF Dose Instruction: TAKE ONE TABLET BY MOUTH DAILY. Rx Instructions: TAKE ONE TABLET BY MOUTH DAILY. rosuvastatin 20 mg tablet See Rx Instructions .ROUTE .COMPLEX Qty: 90 3RF Dose Instruction: TAKE ONE TABLET BY MOUTH DAILY AT 8:00 a.m. Rx Instructions: TAKE ONE TABLET BY MOUTH DAILY AT 8:00 a.m. tamsulosin 0.4 mg capsule See Rx Instructions .ROUTE .COMPLEX Qty: 90 3RF Dose Instruction: TAKE ONE CAPSULE BY MOUTH DAILY AT 8:00 a.m. Rx Instructions: TAKE ONE CAPSULE BY MOUTH DAILY AT 8:00 a.m. furosemide 20 mg tablet See Rx Instructions .ROUTE .COMPLEX Qty: 180 0RF Dose Instruction: TAKE ONE TABLET BY MOUTH TWICE DAILY Rx Instructions: TAKE ONE TABLET BY MOUTH TWICE DAILY levothyroxine 25 mcg tablet See Rx Instructions .ROUTE .COMPLEX Qty: 30 11RF Dose Instruction: TAKE ONE TABLET BY MOUTH DAILY Rx Instructions: TAKE ONE TABLET BY MOUTH DAILY aspirin 81 mg tablet,delayed release (DR/EC) 81 mg PO DAILY@0800 carbidopa-levodopa 50-200 mg tablet extended release 1 tab PO BEDTIME Changed metoprolol succinate 25 mg tablet extended release 24 hr 37.5 mg PO DAILY Qty: 30 11RF Tool Chaser OK for DC: Cardiology Discharge Order = DC NOW: Discharge Order (Routine); Ordered 05/22/25 Ordered By: Lynn Ridley Referrals: Jazzy Ying FNP [Nurse Practitioner, Cardiology] Referral Note: We have notified your physician's clinic of the need for a follow-up appointment to be scheduled. If you have not heard from them within the next 2 business days, please call them directly. Neville Hinton MD [Primary Care Provider, Family Practice] Referral Note: We have notified your physician's clinic of the need for a follow-up appointment to be scheduled. If you have not heard from them within the next 2 business days, please call them directly. Diet: Cardiac Activity: Increase activity as tolerated Patient Instructions: Heart Catheterization (DC) Print Language: Persian Discharge Attestations Time Spent in Discharge Care*: other Status at Discharge: Cognitive status at discharge: cognitively intact, Behavioral status at discharge: cooperative, Quality Metrics Clinical Quality Measures [ No reported AMI, CVA or VTE this stay] Coding Level of Care Code Acute Code for Chg Fwd Diagnoses Heart failure with reduced ejection fraction I50.20 SOB (shortness of breath) R06.02 Tachycardia R00.0 Presence of permanent cardiac pacemaker Z95.0 Chronic systolic congestive heart failure, NYHA class 2 I50.22 Primary hypertension I10 Hypertension type: primary hypertension
== END 2025-05-22 14:00 | disposition home or self-care (01) ==
LOC: CCL 07:24 → CSU 15:17
PROVIDERS: Internal Medicine Cardiovascular Disease; PCP Family Medicine; Visit Provider Internal Medicine Cardiovascular Disease
DX: I25.41 Coronary artery aneurysm (principal); E78.5 Hyperlipidemia, unspecified; I47.19 Other supraventricular tachycardia; I50.22 Chronic systolic (congestive) heart failure; I11.0 Hypertensive heart disease with heart failure; Z95.0 Presence of cardiac pacemaker; K21.9 Gastro-esophageal reflux disease without esophagitis; Z79.82 Long term (current) use of aspirin; E03.9 Hypothyroidism, unspecified; E11.9 Type 2 diabetes mellitus without complications; G20.A1 Parkinson's disease without dyskinesia, without mention of fluctuations; Z82.49 Family history of ischemic heart disease and other diseases of the circulatory system; Z83.3 Family history of diabetes mellitus; Z80.9 Family history of malignant neoplasm, unspecified
CPT/HCPCS: 36415; 36416; 80048; 81001; 82810; 82962; 85025; 93460; 94640; 99152; 99153; C1751; C1760; C1769; C1887; C1894; G0269; J1644; J2250; J3010; J3490; J7030; J7613; J7626; J9999; Q0163; Q9967

== ENCOUNTER → 2025-06-01 10:59 | Outpatient (BNVA) | payer MEDICARE, SELFPAY | PROVIDERS: PCP Family Medicine; Visit Provider Family Medicine | DX: I50.20 Unspecified systolic (congestive) heart failure (principal) | CPT/HCPCS: 80048; 85025 ==

== ENCOUNTER → 2025-06-14 15:09 | Outpatient (BNVA) | payer MEDICARE, SELFPAY | PROVIDERS: PCP Family Medicine; Visit Provider Nurse Practitioner Family | DX: I13.0 Hypertensive heart and chronic kidney disease with heart failure and stage 1 through stage 4 chronic kidney disease, or unspecified chronic kidney disease (principal); I50.22 Chronic systolic (congestive) heart failure; N18.9 Chronic kidney disease, unspecified; E78.5 Hyperlipidemia, unspecified; R00.0 Tachycardia, unspecified; Z95.810 Presence of automatic (implantable) cardiac defibrillator; E11.22 Type 2 diabetes mellitus with diabetic chronic kidney disease; Z79.84 Long term (current) use of oral hypoglycemic drugs | CPT/HCPCS: 99214 ==